=== PATIENT | male | born 1940 | race Caucasian/White ===

== ENCOUNTER → 2016-10-11 | Outpatient (CLI) | payer MEDICARE ==
--- NOTE | 2016-10-12 08:47 | XR ---
Cervical spine HISTORY: Neck pain, degenerative disc disease 5 views of the cervical spine Comparison to prior cervical spine 27 October 2013 Foraminal encroachment is present at C4-5, C5-6, C6-7 due to lateral extension of endplates. Cervica l vertebral bodies show preserved height. Bone mineralization is reduced. Multilevel facet arthropath y. There is multilevel spondylosis. Loss of disc height C3-4, C5-6 and C6-7. Minimal anterolisthesis grade 1 C4-5 and C6-7, C7-T1, retrolisthesis grade 1 C5-6. Odontoid view is limited. IMPRESSION: Degenerative disc disease, facet arthropathy, multilevel foraminal encroachment. Findings similar to prior exam.
== END | disposition home or self-care (01) ==
LOC: RADXRYALE 15:31
PROVIDERS: ATTEND Family Medicine
DX: M50.30 Other cervical disc degeneration, unspecified cervical region (principal); M46.86 Other specified inflammatory spondylopathies, lumbar region
CPT/HCPCS: 72050

== ENCOUNTER → 2016-10-23 | Outpatient (CLI) | payer MEDICARE ==
--- NOTE | 2016-10-23 13:29 | CT ---
EXAMINATION TYPE: CT cervical spine wo con DATE OF EXAM: 10/23/2016 1:07 PM COMPARISON: NONE HISTORY: Posterior neck pain for years CT DLP: 702 mGycm Automated exposure control for dose reduction was used. TECHNIQUE: CT scan of the cervical spine is obtained without contrast, axial images are obtained, sa gittal and coronal reformatted images are also reviewed. FINDINGS: C2-3: No significant disc space narrowing. No disc bulging or herniation. No central stenosis. Forami na are patent bilaterally. C3-4: Moderate degenerative disc space narrowing. Mild posterior disc bulge. No evidence for herniati on or central stenosis. C4-5: Moderate degenerative disc space narrowing. Mild posterior disc bulge. No herniation or centra l stenosis. Degenerative change of the cervical apophyseal joints resulting in mild left foraminal en croachment. C5-6: Moderate to severe degenerative disc space narrowing. Moderate posterior disc bulge with encaps ulating spur resulting in hard disc. Effacement of the ventral thecal sac and borderline central sten osis. Bilateral foraminal encroachment left greater than right. C6-7: Moderate to severe degenerative disc space narrowing. Moderate posterior disc bulge with encap sulating spur resulting in hard disc. Effacement of the ventral thecal sac and borderline central naya nosis. Bilateral foraminal encroachment left greater than right. C7-T1: No significant disc space narrowing. No disc bulging or herniation. No central stenosis. Yoanna norma are patent bilaterally. IMPRESSION: 1. Multilevel degenerative disc disease. 2. Borderline central stenosis at C5-6 and C6-7. See above.
== END | disposition home or self-care (01) ==
LOC: RADCTMAIN 12:42
PROVIDERS: ATTEND Family Medicine
DX: M50.30 Other cervical disc degeneration, unspecified cervical region (principal)
CPT/HCPCS: 72125

== ENCOUNTER → 2017-03-28 | Outpatient (CLI) | payer MEDICARE ==
--- NOTE | 2017-03-28 15:33 | CT ---
EXAMINATION TYPE: CT brain wo con DATE OF EXAM: 03/28/2017 COMPARISON: NONE HISTORY: Fall 2 weeks ago. Complains of dizziness and weakness CT DLP: [address] of the brain was performed. The ventricles, basal cisterns and sulci overlying the cerebral convexities demonstrate mild enlargem ent. There is no evidence for intracranial hemorrhage or sulcal effacement. There is decreased attenuation about the periventricular white matter and deep white matter of both c erebral hemispheres, compatible with chronic small vessel ischemia. Differential diagnosis does inclu de demyelination. No mass effects are seen.No midline shift. Osseous calvarium is intact. If symptoms persist consider MRI. IMPRESSION: 1. Age related atrophic and chronic small vessel ischemic change without acute intracranial process s een at this time.
== END | disposition home or self-care (01) ==
LOC: RADCTMAIN 15:13
PROVIDERS: ATTEND Family Medicine
DX: G31.1 Senile degeneration of brain, not elsewhere classified (principal); I67.82 Cerebral ischemia
CPT/HCPCS: 70450

== ENCOUNTER → 2018-01-02 | Outpatient (CLI) | payer MEDICARE ==
--- NOTE | 2018-01-02 16:23 | CT ---
EXAMINATION TYPE: CT abdomen pelvis wo con DATE OF EXAM: 01/02/2018 COMPARISON: 04/21/2016 INDICATION: Left sided flank pain. History of renal cancer. DLP: 429.2 mGycm, Automated exposure control for dose reduction was used. CONTRAST: 0 mL of Isovue 300. Study performed with Oral Contrast TECHNIQUE: Axial images were obtained from above the diaphragm to the pubic rami in the axial plane a t 5 mm thick sections. Reconstructed images are reviewed on the computer in the coronal plane. FINDINGS: Limited CT sections are obtained the lung bases. The lung bases are clear. CT ABDOMEN: Liver: Normal Spleen: Normal Pancreas: Normal Adrenal glands: Mild diffuse thickening of the left adrenal gland up to 1.5 cm cyst present. The righ t adrenal gland appears unremarkable. Gallbladder: Normal Kidneys: No masses are evident. No hydronephrosis is present. No cysts are present. Left kidney is been resected. Surgical clips are in the renal artery region. Aorta: Vascular calcification is within the aorta. Inferior vena cava: Normal. CT PELVIS: Loops of bowel within the abdomen and pelvis are normal. There are loops of bowel which are incom pletely distended or lack oral contrast limiting their evaluation. Few scattered diverticuli within t he sigmoid colon region. Appendix: Not identified. Urinary bladder: Normal. Genitourinary structures: Prostate is mild prominence. Osseous structures: No suspicious lytic or sclerotic lesions. Facet degenerative changes are present. COMPARISON: 04/21/2016. No significant interval changes evident. IMPRESSIONS: 1. No suspicious changes to suggest renal stones. No hydronephrosis or hydroureter or underlying shashi al masses are evident. The left kidney is surgically absent. 2. Mild fusiform prominence left adrenal gland.
== END | disposition home or self-care (01) ==
LOC: RADCTMAIN 12:37
PROVIDERS: ATTEND Surgery
DX: E27.8 Other specified disorders of adrenal gland (principal); Z91.013 Allergy to seafood; Z91.041 Radiographic dye allergy status; Z90.5 Acquired absence of kidney
CPT/HCPCS: 74176

== ENCOUNTER → 2019-08-15 | Outpatient (CLI) | payer MEDICARE ==
--- NOTE | 2019-08-15 11:46 | XR ---
EXAMINATION TYPE: XR chest 2V DATE OF EXAM: 08/15/2019 COMPARISON: 08/04/2014, 06/11/2015 TECHNIQUE: PA and lateral views submitted. HISTORY: Cough FINDINGS: The lungs are clear and there is no pneumothorax, pleural effusion, or focal pneumonia. Atheroscler otic change aorta. Hyperinflation noted. Surgical clips in the abdomen. No overt failure. Degenerativ e change of the spine. IMPRESSION: 1. No acute process. Correlate for COPD.
== END | disposition home or self-care (01) ==
LOC: RADXRYALE 11:04
PROVIDERS: ATTEND Family Medicine
DX: J44.9 Chronic obstructive pulmonary disease, unspecified (principal); R63.4 Abnormal weight loss
CPT/HCPCS: 71046

== ENCOUNTER → 2019-08-28 | Outpatient (CLI) | payer MEDICARE ==
[2019-08-28 14:48] LABS: African American GFR (CKD) >90 (>60 ml/min/1.73 sqM); Blood Urea Nitrogen 23 mg/dL (9-20); Non-African American GFR(CKD) 82 (>60 ml/min/1.73 sqM)
--- NOTE | 2019-08-29 12:05 | CT ---
EXAMINATION TYPE: CT abdomen w con DATE OF EXAM: 08/28/2019 COMPARISON: 01/02/2013 HISTORY: 79-year-old male Early satiety, abdominal pain. History of left kidney removed, hernia repai rs. TECHNIQUE: Contiguous axial scanning of the abdomen following administration of 100 ml Isovue 300 IV contrast. Delayed images through the kidneys and coronal/sagittal reconstructions performed. Patien t unable to raise arms and premedicated prior to the exam. CT DLP: 829 mGycm Automated exposure control for dose reduction was used. FINDINGS: Mild pectus excavatum. Heart normal size. Three-vessel coronary artery calcifications are present. No pericardial effusion. Lung bases clear without pleural effusion. Abnormal masslike circumferential thickening along the gastric fundus extending to the proximal body. Wall thickening measures up to 3.0 cm, new from 01/02/2018, refer to axial image 21. There is new intrahepatic and extra hepatic biliary ductal dilatation. Mild to moderate intrahepatic biliary ductal dilatation and the bile duct is dilated up to 1.7 cm. Abnormal 1.6 cm round filling defect within the upper bile duct and 1.2 cm round nodule within the di stal bile duct. Portal venous system is patent. Gallbladder is hydropic at 5.3 cm wide in keeping with biliary obstruction. Mild diffuse thickening left adrenal gland is unchanged from 01/02/2018. A few tiny cortical hypodensities within the right kidney too small for accurate CT characterization, likely tiny cortical cysts. Left kidney surgically absent. The left renal fossa is filled with bowel loops. Mildly enlarged mesenteric lymph nodes in the left side of the abdomen measure up to 1.1 cm, refer to axial image 35. However, this appears unchanged from 01/02/2018, refer to axial image 29 on that old exam. Moderate atherosclerotic calcification within the abdominal aorta and iliac arteries. 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 No dilated small bowel, free fluid, or free air. Moderate stool in the right side of the colon. There seems to be bulging laxity, possible intercostal herniation between the 10th and 11th lateral l eft ribs. Similar in retrospect to 01/02/2018. Pelvis is not imaged. Bones: Facet arthropathy lower lumbar spine. Moderate degenerative disc disease L-1-L2. Grade 1 anter olisthesis L4-L5. No osseous destructive process. IMPRESSION: 1. NEW ABNORMAL MASSLIKE CIRCUMFERENTIAL THICKENING UP TO 3 CM THICK INVOLVING THE GASTRIC FUNDUS AND PROXIMAL BODY. GASTRIC LYMPHOMA, ADENOCARCINOMA, AND SEVERE GASTRITIS ARE IN THE DIFFERENTIAL. APPRO PRIATE WORKUP AND MANAGEMENT RECOMMENDED. 2. NEW BILIARY OBSTRUCTION WITH THE BILE DUCT DILATED UP TO 1.7 CM IN MILD TO MODERATE INTRAHEPATIC DUCTAL DILATATION. THERE IS A 1.6 CM NODULE IN THE UPPER BILE DUCT AND 1.2 CM NODULE IN THE DISTAL BI LE DUCT. METASTATIC DISEASE AND STONES ARE IN THE DIFFERENTIAL. NOTE THAT ERCP MAY HAVE SOME TECHNICA L DIFFICULTY GIVEN THE GASTRIC THICKENING. 3. MILDLY ENLARGED LEFT ABDOMINAL MESENTERIC LYMPH NODES MEASURING UP TO 1.1 CM ARE STABLE BACK TO . THIS SUGGESTS A BENIGN ETIOLOGY. STATUS POST LEFT NEPHRECTOMY. 4. STABLE LEFT LATERAL INTERCOSTAL HERNIA BETWEEN THE 10TH AND 11TH RIBS. A [place] level critical message alert has been initiated for Dayday Vieyra DO via the [employer] Critical Results System on 08/29/2019 12:02 PM. This message alert has been sent to Dayday xie DO via the preferences provided by the clinician for the receipt of Radiology Critical Findings . Message ID [id number].
== END | disposition home or self-care (01) ==
LOC: RADCTMAIN 13:58
PROVIDERS: ATTEND Family Medicine
DX: K46.9 Unspecified abdominal hernia without obstruction or gangrene (principal); K83.1 Obstruction of bile duct; R93.5 Abnormal findings on diagnostic imaging of other abdominal regions, including retroperitoneum; R59.0 Localized enlarged lymph nodes; R68.81 Early satiety; R74.0 Nonspecific elevation of levels of transaminase and lactic acid dehydrogenase [LDH]; Z01.812 Encounter for preprocedural laboratory examination; Z90.5 Acquired absence of kidney
CPT/HCPCS: 82565; 84520; 74160; 36415; Q9967

== ENCOUNTER 2019-09-19 20:21 | Emergency (ER) | payer MEDICARE ==
[2019-09-19 20:36] VITALS: TEMP 98.6
[2019-09-19] MEDS ORDERED: SODIUM CHLORIDE 0.9% 1,000 ML IV STA (21:02)
--- NOTE | 2019-09-19 21:09 | ED ---
General Adult HPI - General Chief complaint: Chest Pain Stated complaint: chest pain Time Seen by Provider: 09/19/19 20:42 Source: patient, family Mode of arrival: wheelchair Limitations: no limitations - History of Present Illness Initial comments: Dictation was produced using [employer] dictation software. please excuse any grammatical, word or spelling errors. Chief Complaint: 79-year-old male past medical history of kidney disease, ch ronic back pain presents today with chest pain. History of Present Illness: She 79-year-old male. He presents today with chief complaint chest pain. He states that the pain as sharp located to the left anterior chest. Patient states is worse with deep inspiration. He also complains of shortness of breath. Patient is a daily smoker. He has no plans to quit tobacco use. Denies any radiation of symptoms to the shoulder and jaw. No diaphoresis. Denies any history of blood clots. No strokelike symptoms The ROS documented in this emergency department record has been reviewed and confirmed by me. Those systems with pertinent positive or negative responses have been documented in the HPI. All other systems are other negative and/or noncontributory. PHYSICAL EXAM: General Impression: Alert and oriented x3, not in acute distress HEENT: Normocephalic atraumatic, extra-ocular movements intact, pupils equal and reactive to light bilaterally, mucous membranes moist. Cardiovascular: Heart regular rate and rhythm, S1&S2 audible, no murmurs, rubs or gallops Chest: Lungs clear to auscultation bilaterally, no rhonchi, no wheeze, no rales Abdomen: Bowel sounds present, abdomen soft, non-tender, non-distended, no organomegaly Musculoskeletal: Pulses present and equal in all extremities, no peripheral edema Motor: no focal deficits noted Neurological: CN II-XII grossly intact, no focal motor or sensory deficits noted Skin: Intact with no visualized rashes Psych: Normal affect and mood ED course: 79-year-old female presents with atypical chest pain. Runs upon arrival are within acceptable limits. Laboratory evaluation obtained. Leukocytosis of 11.5. Coag panel is negative. D-dimer is 1.05. Metabolic panel is negative. Patient did have elevation of liver enzymes. Alk phos is 1000 417. This appears to be present since last month. Chest x-ray is unremarkable. CT angios the chest was obtained given elevated d-dimer and concerns of PE. CT angios unremarkable. Reevaluated patient after administration of IV analgesia and bladder gram patch. His symptoms are improved. He reports feeling much better. Discussed with patient that there is no signs of any life-threatening diseases occurring at this time. He is advised follow-up with primary care physician. Patient notified about his elevated liver enzymes. He is told to follow-up with primary care physician regarding this. EKG interpretation: Ventricular rate 83, sinus rhythm, ID interval 150, QS 80, QTc 425. No ID prolongation, no QTC prolongation, no ST or T-wave changes noted. Overall, this EKG is unremarkable - Related Data Home Medications Medication Instructions Recorded Confirmed Celecoxib [CeleBREX] 200 mg PO DAILY 08/01/14 07/24/16 Famotidine [Pepcid] 20 mg PO HS 08/01/14 07/26/16 oxyCODONE-APAP 10-325MG [Percocet 1 each PO Q6HR PRN 08/01/14 07/26/16 10-325 mg] Omeprazole [PriLOSEC] 20 mg PO AC-BRKFST 05/11/15 07/26/16 Previous Rx's Medication Instructions Recorded HYDROcodone/APAP 7.5-325MG [[place] 1 each PO Q4H PRN #60 tab 07/26/16 7.5] Allergies Allergy/AdvReac Type Severity Reaction Status Date / Time Latex, Natural Rubber Allergy Unknown Red skin Verified 09/19/19 20:24 Penicillins Allergy Unknown Rash/Hives Verified 09/19/19 20:24 adhesive Allergy blisters,tears Verified 09/19/19 20:24 skin Cephalosporins Allergy Rash/Hives Verified 09/19/19 20:24 erythromycin base Allergy Rash/Hives Verified 09/19/19 20:24 Sulfa (Sulfonamide Allergy Unknown Verified 09/19/19 20:24 Antibiotics) Iodinated Contrast Media AdvReac Anaphylaxis Verified 09/19/19 20:24 [Iodinated Contrast Media - IV Dye] tape Allergy blisters Uncoded 09/19/19 20:24 skin,peels skin,states "paper tape ok" Review of Systems ROS Statement: Those systems with pertinent positive or pertinent negative responses have been documented in the HPI. ROS Other: All systems not noted in ROS Statement are negative. 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 History of Any Multi-Drug Resistant Organisms: None Reported Past Surgical History: Bladder Surgery, Hernia Repair Additional Past Surgical History / Comment(s): lt kidney removed,abdominal hernias x 2 repair Past Anesthesia/Blood Transfusion Reactions: No Reported Reaction Past Psychological History: No Psychological Hx Reported Smoking Status: Current every day smoker Past Alcohol Use History: None Reported Past Drug Use History: None Reported - Past Family History Mother Family Medical History: No Reported History Additional Family Medical History / Comment(s): at age 93 Father Additional Family Medical History / Comment(s): Abdominal Aneurysm General Exam Limitations: no limitations Course Vital Signs 09/19/19 09/19/19 20:23 22:48 Temperature 98.6 F Pulse Rate 88 66 Respiratory 20 18 Rate Blood Pressure 126/76 119/65 O2 Sat by Pulse 97 98 Oximetry Medical Decision Making - Lab Data Result diagrams: 09/19/19 21:10 09/19/19 21:10 Lab Results 09/19/19 09/19/19 09/19/19 Range/Units 21:10 21:10 21:10 WBC 11.5 H (3.8-10.6) k/uL RBC 4.12 L (4.30-5.90) m/uL Hgb 13.2 (13.0-17.5) gm/dL Hct 41.2 (39.0-53.0) % MCV 99.9 (80.0-100.0) fL MCH 32.0 (25.0-35.0) pg MCHC 32.0 (31.0-37.0) g/dL RDW 13.6 (11.5-15.5) % Plt Count 244 (150-450) k/uL Neutrophils % 86 % Lymphocytes % 7 % Monocytes % 5 % Eosinophils % 1 % Basophils % 0 % Neutrophils # 9.9 H (1.3-7.7) k/uL Lymphocytes # 0.8 L (1.0-4.8) k/uL Monocytes # 0.6 (0-1.0) k/uL Eosinophils # 0.1 (0-0.7) k/uL Basophils # 0.1 (0-0.2) k/uL PT 9.3 (9.0-12.0) sec INR 0.9 (<1.2) APTT 26.4 (22.0-30.0) sec D-Dimer 1.05 H (<0.60) mg/L FEU Sodium 136 L (137-145) mmol/L Potassium 4.1 (3.5-5.1) mmol/L Chloride 101 (98-107) mmol/L Carbon Dioxide 32 H (22-30) mmol/L Anion Gap 3 mmol/L BUN 24 H (9-20) mg/dL Creatinine 0.82 (0.66-1.25) mg/dL Est GFR (CKD-EPI)AfAm >90 (>60 ml/min/1.73 sqM) Est GFR (CKD-EPI)NonAf 85 (>60 ml/min/1.73 sqM) Glucose 157 H (74-99) mg/dL Calcium 8.8 (8.4-10.2) mg/dL Magnesium 1.9 (1.6-2.3) mg/dL Total Bilirubin 2.5 H (0.2-1.3) mg/dL AST 70 H (17-59) U/L ALT 74 H (4-49) U/L Alkaline Phosphatase 1417 H (38-126) U/L Troponin I (0.000-0.034) ng/mL NT-Pro-B Natriuret Pep pg/mL Total Protein 6.7 (6.3-8.2) g/dL Albumin 3.3 L (3.5-5.0) g/dL Lipase 43 (23-300) U/L 09/19/19 09/19/19 Range/Units 21:10 21:10 WBC (3.8-10.6) k/uL RBC (4.30-5.90) m/uL Hgb (13.0-17.5) gm/dL Hct (39.0-53.0) % MCV (80.0-100.0) fL MCH (25.0-35.0) pg MCHC (31.0-37.0) g/dL RDW (11.5-15.5) % Plt Count (150-450) k/uL Neutrophils % % Lymphocytes % % Monocytes % % Eosinophils % % Basophils % % Neutrophils # (1.3-7.7) k/uL Lymphocytes # (1.0-4.8) k/uL Monocytes # (0-1.0) k/uL Eosinophils # (0-0.7) k/uL Basophils # (0-0.2) k/uL PT (9.0-12.0) sec INR (<1.2) APTT (22.0-30.0) sec D-Dimer (<0.60) mg/L FEU Sodium (137-145) mmol/L Potassium (3.5-5.1) mmol/L Chloride (98-107) mmol/L Carbon Dioxide (22-30) mmol/L Anion Gap mmol/L BUN (9-20) mg/dL Creatinine (0.66-1.25) mg/dL Est GFR (CKD-EPI)AfAm (>60 ml/min/1.73 sqM) Est GFR (CKD-EPI)NonAf (>60 ml/min/1.73 sqM) Glucose (74-99) mg/dL Calcium (8.4-10.2) mg/dL Magnesium (1.6-2.3) mg/dL Total Bilirubin (0.2-1.3) mg/dL AST (17-59) U/L ALT (4-49) U/L Alkaline Phosphatase (38-126) U/L Troponin I <0.012 (0.000-0.034) ng/mL NT-Pro-B Natriuret Pep 243 pg/mL Total Protein (6.3-8.2) g/dL Albumin (3.5-5.0) g/dL Lipase (23-300) U/L Disposition Clinical Impression: Chest wall muscle strain Disposition: HOME SELF-CARE Condition: Good Instructions (If sedation given, give patient instructions): Chest Pain (ED) Additional Instructions: Your alkaline phosphatase level was 1417. This is significantly elevated and should be monitored by her primary care physician. Is patient prescribed a controlled substance at d/c from ED?: No Referrals: Dayday Vieyra, [Primary Care Provider] - 1-2 days Time of Disposition: 00:28
[2019-09-19] MEDS ORDERED: oxyCODONE-APAP 10-325MG 1 EACH TAB PO PRN (21:16)
[2019-09-19 21:22] LABS: Basophils # (A) 0.1 k/uL (0-0.2); Basophils % (A) 0 %; Eosinophils # (A) 0.1 k/uL (0-0.7); Eosinophils % (A) 1 %; HCT 41.2 % (39.0-53.0); HGB 13.2 gm/dL (13.0-17.5); Lymphocytes # (A) 0.8 k/uL (1.0-4.8); Lymphocytes % (A) 7 %; MCV 99.9 fL (80.0-100.0); Mean Platelet Volume 11.4; Monocytes # (A) 0.6 k/uL (0-1.0); Monocytes % (A) 5 %; Neutrophils # (A) 9.9 k/uL (1.3-7.7); Neutrophils % (A) 86 %; Platelet Count 244 k/uL (150-450); RBC 4.12 m/uL (4.30-5.90); RDW 13.6 % (11.5-15.5); WBC 11.5 k/uL (3.8-10.6)
[2019-09-19 21:34] LABS: ALT 74 U/L (4-49); AST 70 U/L (17-59); African American GFR (CKD) >90 (>60 ml/min/1.73 sqM); Albumin 3.3 g/dL (3.5-5.0); Anion Gap 3 mmol/L; Blood Urea Nitrogen 24 mg/dL (9-20); Calcium 8.8 mg/dL (8.4-10.2); Carbon Dioxide 32 mmol/L (22-30); Chloride 101 mmol/L (98-107); Glucose 157 mg/dL (74-99); Magnesium 1.9 mg/dL (1.6-2.3); Non-African American GFR(CKD) 85 (>60 ml/min/1.73 sqM); Potassium 4.1 mmol/L (3.5-5.1); Sodium 136 mmol/L (137-145); Total Bilirubin 2.5 mg/dL (0.2-1.3); Total Protein 6.7 g/dL (6.3-8.2)
[2019-09-19 21:40] LABS: INR 0.9 (<1.2); Partial Thromboplastin Time 26.4 sec (22.0-30.0); Prothrombin Time 9.3 sec (9.0-12.0)
[2019-09-19 21:45] LABS: D-Dimer 1.05 mg/L FEU (<0.60)
[2019-09-19 21:48] LABS: Alkaline Phosphatase 1417 U/L (38-126)
--- NOTE | 2019-09-19 21:55 | XR ---
EXAMINATION TYPE: XR chest 2V DATE OF EXAM: 09/19/2019 COMPARISON: 08/15/2019 HISTORY: Chest pain TECHNIQUE: FINDINGS: There is no heart failure nor confluent pneumonic infiltrate. Thoracic aorta is atheromatou s. There are chest leads. Bony thorax is intact. IMPRESSION: No active cardiopulmonary disease. Normal heart. No change.
[2019-09-19] MEDS ORDERED: methylPREDNISolone SOD SUCCI 125 MG/2 ML VIAL IV STA (21:57)
[2019-09-19] MEDS ORDERED: FAMOTIDINE 20 MG/2 ML VIAL IV STA (21:57)
[2019-09-19] MEDS ORDERED: diphenhydrAMINE 50 MG/ML 1 ML VIAL IVP STA (21:57)
[2019-09-19] MEDS ORDERED: HYDROmorphone 0.5 MG/0.5 ML SYRINGE IVP STA (21:58)
[2019-09-19 22:49] VITALS: BP 119/65; PULSE 66; RESP 18
--- NOTE | 2019-09-19 22:52 | CT ---
EXAMINATION TYPE: CT angio chest DATE OF EXAM: 09/19/2019 COMPARISON: None HISTORY: chest pain CT DLP: 351.4 mGycm Automated exposure control for dose reduction was used. CONTRAST: Performed with IV Contrast, patient injected with 81cc mL of Isovue 370. Multiple axial sections were obtained from the thoracic inlet to the diaphragm with intravenous contr ast. There are 3-D post processed images The lungs are clear of consolidation. There is patchy scarring and atelectasis at the lung bases. The re is no pleural effusion. Heart is slightly enlarged. There is no pericardial effusion. Thoracic aor ta is atheromatous. There is no aortic dissection. Aorta measures up to 3.2 cm. There is no aneurysm. There are no hilar masses. There is no mediastinal adenopathy. There is normal contrast opacification of the pulmonary arteries. There are no filling defects. Thoracic vertebra have fairly normal spacing and alignment. There is no compression fracture. Bony pe lvis appears intact. IMPRESSION: No evidence of pulmonary embolism. Mild scarring and subsegmental atelectasis at the lung bases. Mild atherosclerotic vascular disease.
[2019-09-19] MEDS ORDERED: LIDOCAINE 5% PATCH TOPICAL STA (23:21)
== END 2019-09-20 00:55 | disposition home or self-care (01) ==
LOC: EC 20:21
DX: S29.011A Strain of muscle and tendon of front wall of thorax, initial encounter (principal); K21.9 Gastro-esophageal reflux disease without esophagitis; F17.200 Nicotine dependence, unspecified, uncomplicated; Z79.899 Other long term (current) drug therapy; Z91.040 Latex allergy status; Z91.048 Other nonmedicinal substance allergy status; Z88.0 Allergy status to penicillin; Z88.1 Allergy status to other antibiotic agents; Z88.2 Allergy status to sulfonamides; Z91.09 Other allergy status, other than to drugs and biological substances; Z85.528 Personal history of other malignant neoplasm of kidney; Z90.5 Acquired absence of kidney; X58.XXXA Exposure to other specified factors, initial encounter
CPT/HCPCS: 36415; 93005; 85379; 83880; 80053; 83690; 83735; 84484; 85025; 85610; 85730; 71046; 71275; 99285; 96374; 96375 ×3; 96361 ×4; J1200; J2930; J1170; Q9967

== ENCOUNTER 2019-10-01 09:09 | Day surgery (SDC) | payer MEDICARE ==
[2019-09-26 10:57] VITALS: BMI 20.3
[~2019-10-01 09:09] MED LIST: LACTATED RINGERS 1,000 ML IV SCH; LIDOCAINE 1% (10MG/ML) FOR IV START INTRADERMA PRN
[2019-10-01 10:44] VITALS: RESP 16; TEMP 97.4
[2019-10-01] MEDS ORDERED: LEVOFLOXACIN 500MG-D5W PMX 500 MG in DEXTROSE/WATER 1 100ML.BAG IVPB STA (10:55)
[2019-10-01] MEDS ORDERED: INDOMETHACIN 50MG SUPPOSITORY RECTAL ONE (10:55)
[2019-10-01 11:09] LABS: Basophils % (A) 0 %; Eosinophils # (A) 0.1 k/uL (0-0.7); Eosinophils % (A) 1 %; HCT 42.7 % (39.0-53.0); HGB 13.8 gm/dL (13.0-17.5); Lymphocytes % (A) 11 %; MCH 32.1 pg (25.0-35.0); MCHC 32.3 g/dL (31.0-37.0); MCV 99.3 fL (80.0-100.0); Mean Platelet Volume 10.1; Monocytes # (A) 0.4 k/uL (0-1.0); Monocytes % (A) 4 %; Neutrophils # (A) 7.3 k/uL (1.3-7.7); Neutrophils % (A) 82 %; Platelet Count 296 k/uL (150-450); RDW 13.5 % (11.5-15.5); WBC 8.8 k/uL (3.8-10.6)
[2019-10-01] MEDS ORDERED: FAMOTIDINE 20 MG/2 ML VIAL IV ONE (11:10)
[2019-10-01] MEDS ORDERED: HYDROCORTISONE SUCCINATE 100 MG/2 ML VIAL IV ONE (11:11)
[2019-10-01] MEDS ORDERED: diphenhydrAMINE 50 MG/ML 1 ML VIAL IVP ONE (11:12)
[2019-10-01 11:14] LABS: INR 0.9 (<1.2); Prothrombin Time 9.7 sec (9.0-12.0)
[2019-10-01 11:19] LABS: ALT 92 U/L (4-49); AST 100 U/L (17-59); African American GFR (CKD) >90 (>60 ml/min/1.73 sqM); Albumin 3.4 g/dL (3.5-5.0); Anion Gap 8 mmol/L; Blood Urea Nitrogen 20 mg/dL (9-20); Calcium 9.2 mg/dL (8.4-10.2); Carbon Dioxide 27 mmol/L (22-30); Chloride 103 mmol/L (98-107); Glucose 105 mg/dL (74-99); Non-African American GFR(CKD) 84 (>60 ml/min/1.73 sqM); Potassium 4.4 mmol/L (3.5-5.1); Sodium 138 mmol/L (137-145); Total Bilirubin 3.9 mg/dL (0.2-1.3); Total Protein 7.1 g/dL (6.3-8.2)
[2019-10-01] MEDS ORDERED: fentaNYL (PF) 50 MCG/ML 2 ML AMP IV ONE (11:35)
[2019-10-01 11:44] LABS: Alkaline Phosphatase 1800 U/L (38-126)
[2019-10-01] MEDS ORDERED: KETAMINE 10 MG/ML 20 ML VIAL ONE (12:16)
[2019-10-01] MEDS ORDERED: LIDOCAINE 1% INJ 10MG/ML (20 ML MDV) ONE (12:16)
[2019-10-01] MEDS ORDERED: PROPOFOL 10 MG/ML 20 ML VIAL IV ONE (12:16)
[2019-10-01] MEDS ORDERED: MIDAZOLAM 2 MG/2 ML VIAL ONE (12:16)
--- NOTE | 2019-10-01 12:50 | P.PCN ---
Date of Procedure: 10/01/19 Procedure(s) Performed: BRIEF HISTORY: Patient is a 79-year-old, pleasant, male, scheduled for an upper endoscopy as a part of evaluation of progressive weight loss of 30 pounds in the last 6 months duration associated with early satiety. Labs revealed elevated bilirubin of 3. 1800. Mild elevation of serum transaminases. CT of abdomen showed thickened folds in the fundus suspicious for neoplasm and dilated common bile duct with 2 small densities in the proximal and distal CBD suspicious for neoplasm versus stone and hence he scheduled for an upper endoscopy along with ERCP today. PROCEDURE PERFORMED: Esophagogastroduodenoscopy with biopsy. Attempted ERCP PREOPERATIVE DIAGNOSIS: Early satiety and progressive weight loss and abnormal LFTs/jaundice IV sedation per anesthesia. PROCEDURE: After informed consent was obtained, the patient was brought into the endoscopy unit. IV sedation was administered by Anesthesia under continuous monitoring. Initially the Olympus GIF-140 video endoscope was inserted into the mouth. Esophagus intubated without any difficulty. It was gradually advanced into the stomach and duodenum and carefully examined. In the bulb of the duodenum there was a 5 mm superficial ulceration identified. The second part of the duodenum appeared normal. The scope at this time was withdrawn to the stomach, adequately insufflated with air, and upon careful examination, mucosa of the antrum, body, cardia and the fundus appeared normal. There was slight thickening of the folds noted in the proximal body the stomach. There were no masses identified. Biopsies were done from the antrum. The scope was then withdrawn into the esophagus. The GE junction was located at 39 cm from the incisors. Small hiatal hernia noted. The esophagus appeared normal. There were no erosions or ulcerations seen and the patient tolerated the procedure well. At this time he continued to remain sedated. The ERCP scope was passed from the mouth and esophagus intubated without any difficulty and was gradually advanced into the stomach and to some difficulty into the duodenum. Despite multiple times I was not able to visualize ampullary orifice. There was a small duodenal diverticulum identified in the second part of the duodenum but the average orifice could not be seen. After multiple attempts at visualizing the ampullary orifice which was not successful the procedure was terminated. The patient tolerated the procedure well., IMPRESSION: 1. Upper endoscopy revealed slightly thickened folds in the proximal body the stomach but no masses identified . 2 5 mm duodenal bulbar ulcer. 3. Attempted ERCP but unable to visualize the ampullary orifice and hence the procedure was terminated RECOMMENDATIONS: The findings of this examination were discussed with the patient as well as his family. He was advised to follow with the biopsy results. At this time I will refer him to [facility] for ERCP as well as EUS of the pancreas to investigate this further.
[2019-10-01 13:18] VITALS: BP 129/80; PULSE 60
== END 2019-10-01 13:36 | disposition home or self-care (01) ==
LOC: ORWHC2ENDO 09:09
PROVIDERS: ATTEND Internal Medicine Gastroenterology
DX: K26.9 Duodenal ulcer, unspecified as acute or chronic, without hemorrhage or perforation (principal); K57.10 Diverticulosis of small intestine without perforation or abscess without bleeding; K29.50 Unspecified chronic gastritis without bleeding; K44.9 Diaphragmatic hernia without obstruction or gangrene; J44.9 Chronic obstructive pulmonary disease, unspecified; F17.210 Nicotine dependence, cigarettes, uncomplicated; Z90.5 Acquired absence of kidney; Z85.528 Personal history of other malignant neoplasm of kidney; K21.9 Gastro-esophageal reflux disease without esophagitis; Z88.1 Allergy status to other antibiotic agents; Z79.1 Long term (current) use of non-steroidal anti-inflammatories (NSAID); Z79.82 Long term (current) use of aspirin; Z79.891 Long term (current) use of opiate analgesic; Z79.899 Other long term (current) drug therapy; Z88.0 Allergy status to penicillin; Z88.2 Allergy status to sulfonamides; Z91.041 Radiographic dye allergy status; Z91.040 Latex allergy status; Z91.09 Other allergy status, other than to drugs and biological substances
CPT/HCPCS: 88305; 80053; 85025; 85610; 43239; J2250; J1200; J1720; J1956; J2001; J3010; J2704

== ENCOUNTER 2019-10-13 04:21 | Inpatient (IN) | payer MEDICARE ==
[2019-10-13] MEDS ORDERED: ACETAMINOPHEN TAB 325 MG TAB PO STA (04:30)
[2019-10-13] MEDS ORDERED: IBUPROFEN 600 MG TAB PO STA (04:30)
[2019-10-13] MEDS ORDERED: MEROPENEM 1 GM in SODIUM CHLORIDE 0.9% 100 ML IVPB STA (04:53)
[2019-10-13] MEDS ORDERED: metroNIDAZOLE-NS PMX 500 MG in SALINE 1 100ML.BAG IVPB STA (04:57)
[2019-10-13 05:03] LABS: Basophils % (A) 0 %; Eosinophils # (A) 0.1 k/uL (0-0.7); Eosinophils % (A) 1 %; HCT 40.7 % (39.0-53.0); HGB 13.2 gm/dL (13.0-17.5); Lymphocytes # (A) 0.4 k/uL (1.0-4.8); Lymphocytes % (A) 2 %; MCH 32.1 pg (25.0-35.0); MCHC 32.6 g/dL (31.0-37.0); MCV 98.5 fL (80.0-100.0); Mean Platelet Volume 10.2; Monocytes # (A) 0.4 k/uL (0-1.0); Monocytes % (A) 3 %; Neutrophils # (A) 14.4 k/uL (1.3-7.7); Neutrophils % (A) 94 %; Platelet Count 284 k/uL (150-450); RBC 4.13 m/uL (4.30-5.90); RDW 13.3 % (11.5-15.5); WBC 15.4 k/uL (3.8-10.6)
[2019-10-13] MEDS: SODIUM CHLORIDE 0.9% 500 ML 500 ML IV SCH ×3 (05:11→06:17)
[2019-10-13 05:13] LABS: ALT 104 U/L (4-49); AST 155 U/L (17-59); African American GFR (CKD) >90 (>60 ml/min/1.73 sqM); Albumin 3.2 g/dL (3.5-5.0); Anion Gap 8 mmol/L; Blood Urea Nitrogen 25 mg/dL (9-20); Calcium 8.7 mg/dL (8.4-10.2); Carbon Dioxide 28 mmol/L (22-30); Chloride 100 mmol/L (98-107); Glucose 114 mg/dL (74-99); INR 0.9 (<1.2); Non-African American GFR(CKD) 83 (>60 ml/min/1.73 sqM); Partial Thromboplastin Time 25.6 sec (22.0-30.0); Potassium 4.3 mmol/L (3.5-5.1); Prothrombin Time 9.8 sec (9.0-12.0); Sodium 136 mmol/L (137-145); Total Bilirubin 3.7 mg/dL (0.2-1.3); Total Protein 6.6 g/dL (6.3-8.2)
[2019-10-13 05:24] LABS: Alkaline Phosphatase 1737 U/L (38-126)
--- NOTE | 2019-10-13 05:35 | ED ---
Fever HPI - General Chief Complaint: Fever Stated Complaint: post-op/fever Time Seen by Provider: 10/13/19 04:25 Source: patient Mode of arrival: ambulatory Limitations: no limitations - History of Present Illness Initial Comments: Javon is a 79-year-old gentleman who presents the ER today for evaluation of fever. Patient has been experiencing abdominal pain, early satiety and weight loss, he underwent a endoscopy and attempted ERCP at our hospital on October 01 however ERCP was unsuccessful. Patient was then referred to [facility] where he underwent an ERCP on September 06. Patient reports that he had a stent placed at that time. Patient was subsequently discharged home and had been doing well however over the past day has had some worsening abdominal pain, his son woke during night to check on him and noted that he was very warm to the touch and had Jeffery's. At that time he decided to bring him to the hospital for evaluation of possible infection. - Related Data Home Medications Medication Instructions Recorded Confirmed Celecoxib [CeleBREX] 200 mg PO DAILY 08/01/14 10/01/19 oxyCODONE-APAP 10-325MG [Percocet 1 each PO Q4HR PRN 08/01/14 10/01/19 10-325 mg] Albuterol Inhaler [Ventolin Hfa 1 - 2 puff INHALATION RT-Q6H PRN 09/26/19 10/01/19 Inhaler] Aspirin [Adult Low Dose Aspirin EC] 81 mg PO DAILY 09/26/19 10/01/19 Allergies Allergy/AdvReac Type Severity Reaction Status Date / Time Latex, Natural Rubber Allergy Unknown Red skin Verified 10/13/19 04:28 Penicillins Allergy Unknown Rash/Hives Verified 10/13/19 04:28 adhesive Allergy blisters,tears Verified 10/13/19 04:28 skin Cephalosporins Allergy Rash/Hives Verified 10/13/19 04:28 erythromycin base Allergy Rash/Hives Verified 10/13/19 04:28 Sulfa (Sulfonamide Allergy Unknown Verified 10/13/19 04:28 Antibiotics) Iodinated Contrast Media AdvReac Anaphylaxis Verified 10/13/19 04:28 [Iodinated Contrast Media - IV Dye] tape Allergy blisters Uncoded 10/13/19 04:28 skin,peels skin,states "paper tape ok" Review of Systems ROS Statement: Those systems with pertinent positive or pertinent negative responses have been documented in the HPI. ROS Other: All systems not noted in ROS Statement are negative. Past Medical History Past Medical History: Cancer, COPD, Eye Disorder, GERD/Reflux Additional Past Medical History / Comment(s): mami inguinal hernias,states "has bulging area to kidney incision and able to feel gas go through" states ribs removed with kidney surgery .,aneurysm rt hip area-(Dr munoz ),chronic back pain, pneumonia (2010), Cancer left kidney & kidney removed 1989., varicose veins,chronic sinus problems,has 20% vision lt eye., states only able to eat sma ll amts and feels full, losing wt., pt was seen in ER 09/19/19 for chest pain. History of Any Multi-Drug Resistant Organisms: None Reported Past Surgical History: Bladder Surgery, Hernia Repair Additional Past Surgical History / Comment(s): lt kidney removed, surgery with Dr. Underwood-unsure what was done. abdominal hernias x 2 repair Past Anesthesia/Blood Transfusion Reactions: No Reported Reaction Past Psychological History: No Psychological Hx Reported Smoking Status: Current every day smoker Past Alcohol Use History: None Reported Past Drug Use History: None Reported - Past Family History Mother Family Medical History: No Reported History Additional Family Medical History / Comment(s): at age 93 Father Additional Family Medical History / Comment(s): Abdominal Aneurysm General Exam - General Exam Comments Initial Comments: Physical Exam GENERAL: Chronically ill-appearing elderly gentleman Temporal wasting HENT: Normocephalic, Atraumatic. EYES: PERRL, EOMI Scleral icterus PULMONARY: Unlabored respirations. No audible rales rhonchi or wheezing was noted. CARDIOVASCULAR: Tachycardic, regular ABDOMEN: Tenderness to palpation RUQ SKIN: Pale : Deferred NEUROLOGIC: Patient is alert and oriented x3. Moving all extremities spontaneously MUSCULOSKELETAL: Normal extremities with adequate strength and full range of motion. No lower extremity swelling or edema. No calf tenderness. PSYCHIATRIC: Normal psychiatric evaluation. Limitations: no limitations Course Vital Signs 10/13/19 10/13/19 10/13/19 04:25 04:36 05:00 Temperature 101.8 F H 102.1 F H Pulse Rate 120 H 78 Respiratory 24 18 Rate Blood Pressure 107/62 103/62 O2 Sat by Pulse 95 98 Oximetry 10/13/19 10/13/19 10/13/19 06:00 06:20 06:59 Temperature 98.7 F Pulse Rate 62 64 63 Respiratory 17 18 16 Rate Blood Pressure 95/63 95/54 95/53 O2 Sat by Pulse 99 99 97 Oximetry Medical Decision Making - Medical Decision Making Patient was seen and evaluated upon arrival Sepsis workup initiated, concern for ascending cholangitis considering the patient had a recent ERCP and is now septic Has reveal leukocytosis, normal kidney function, elevated transaminases bilirubin and alk phos seem to be at baseline CT abdomen and pelvis without contrast due to patient's history of anaphylaxis was ordered CT scan reveals no acute abdominal pathology however right lower lobe pneumonia is identified Patient tachycardia and fever resolved patient resting comfortably now Patient care was discussed with Dr. Bailon who agrees with plan for admission here with consults to pulmonology due to pneumonia and gastroenterology. - Lab Data Result diagrams: 10/13/19 04:45 10/13/19 04:45 Lab Results 10/13/19 10/13/19 10/13/19 Range/Units 04:45 04:45 04:45 WBC 15.4 H (3.8-10.6) k/uL RBC 4.13 L (4.30-5.90) m/uL Hgb 13.2 (13.0-17.5) gm/dL Hct 40.7 (39.0-53.0) % MCV 98.5 (80.0-100.0) fL MCH 32.1 (25.0-35.0) pg MCHC 32.6 (31.0-37.0) g/dL RDW 13.3 (11.5-15.5) % Plt Count 284 (150-450) k/uL Neutrophils % 94 % Lymphocytes % 2 % Monocytes % 3 % Eosinophils % 1 % Basophils % 0 % Neutrophils # 14.4 H (1.3-7.7) k/uL Lymphocytes # 0.4 L (1.0-4.8) k/uL Monocytes # 0.4 (0-1.0) k/uL Eosinophils # 0.1 (0-0.7) k/uL Basophils # 0.0 (0-0.2) k/uL PT 9.8 (9.0-12.0) sec INR 0.9 (<1.2) APTT 25.6 (22.0-30.0) sec Sodium 136 L (137-145) mmol/L Potassium 4.3 (3.5-5.1) mmol/L Chloride 100 (98-107) mmol/L Carbon Dioxide 28 (22-30) mmol/L Anion Gap 8 mmol/L BUN 25 H (9-20) mg/dL Creatinine 0.87 (0.66-1.25) mg/dL Est GFR (CKD-EPI)AfAm >90 (>60 ml/min/1.73 sqM) Est GFR (CKD-EPI)NonAf 83 (>60 ml/min/1.73 sqM) Glucose 114 H (74-99) mg/dL Plasma Lactic Acid Ravinder (0.7-2.0) mmol/L Calcium 8.7 (8.4-10.2) mg/dL Total Bilirubin 3.7 H (0.2-1.3) mg/dL AST 155 H (17-59) U/L ALT 104 H (4-49) U/L Alkaline Phosphatase 1737 H (38-126) U/L Total Protein 6.6 (6.3-8.2) g/dL Albumin 3.2 L (3.5-5.0) g/dL 10/13/19 Range/Units 04:45 WBC (3.8-10.6) k/uL RBC (4.30-5.90) m/uL Hgb (13.0-17.5) gm/dL Hct (39.0-53.0) % MCV (80.0-100.0) fL MCH (25.0-35.0) pg MCHC (31.0-37.0) g/dL RDW (11.5-15.5) % Plt Count (150-450) k/uL Neutrophils % % Lymphocytes % % Monocytes % % Eosinophils % % Basophils % % Neutrophils # (1.3-7.7) k/uL Lymphocytes # (1.0-4.8) k/uL Monocytes # (0-1.0) k/uL Eosinophils # (0-0.7) k/uL Basophils # (0-0.2) k/uL PT (9.0-12.0) sec INR (<1.2) APTT (22.0-30.0) sec Sodium (137-145) mmol/L Potassium (3.5-5.1) mmol/L Chloride (98-107) mmol/L Carbon Dioxide (22-30) mmol/L Anion Gap mmol/L BUN (9-20) mg/dL Creatinine (0.66-1.25) mg/dL Est GFR (CKD-EPI)AfAm (>60 ml/min/1.73 sqM) Est GFR (CKD-EPI)NonAf (>60 ml/min/1.73 sqM) Glucose (74-99) mg/dL Plasma Lactic Acid Ravinder 1.3 (0.7-2.0) mmol/L Calcium (8.4-10.2) mg/dL Total Bilirubin (0.2-1.3) mg/dL AST (17-59) U/L ALT (4-49) U/L Alkaline Phosphatase (38-126) U/L Total Protein (6.3-8.2) g/dL Albumin (3.5-5.0) g/dL - EKG Data -: EKG Interpreted by Me EKG Comments: EKG was obtained due to tachycardia upon arrival, EKG obtained at 4:59 AM, rate is 81 rhythm sinus normal axis normal intervals, no acute ST elevations or depressions or evidence of acute ischemia or infarction. Disposition Clinical Impression: Pneumonia, Sepsis Disposition: ADMITTED IP TO THIS HOSP Condition: Serious Is patient prescribed a controlled substance at d/c from ED?: No Referrals: Dayday Vieyra DO [Primary Care Provider] - 1-2 days
--- NOTE | 2019-10-13 06:18 | CT ---
EXAMINATION TYPE: CT abdomen pelvis wo con DATE OF EXAM: 10/13/2019 COMPARISON: 08/28/2019 HISTORY: Post op fever CT DLP: 365.9 mGycm Automated exposure control for dose reduction was used. Multiple axial sections were obtained from the diaphragm to the floor the pelvis without contrast. FINDINGS: There is some mild infiltrate and atelectasis right posterior lung base. There is no pleural effusion . Heart size is normal. There is no pericardial effusion. There is air in the anterior biliary tree. There is biliary stent noted. Gallbladder is distended. Gallbladder is dilated and measures 5.1 cm in diameter. Spleen is intact. There is no pancreatic mass. The stomach appears intact. There is no adrenal mass. There is clips apparently from left nephrectomy. Right kidney shows normal size. There is no hydronephrosis. Ureter is not dilated. There is no evidence of retroperitoneal liliana opathy. Abdominal aorta is atheromatous. There is no inguinal hernia. There is no free fluid in the p liliana. Bladder is almost empty. There is no evidence of ascites. Abdominal aorta is atheromatous. The re is moderate atheromatous change in the iliac and femoral arteries. There is no evidence of pneumop eritoneum. I see no sign of intestinal obstruction. There are spondylotic mild changes in the lumbar spine. There is no compression fracture. Bony pelvis appears intact. IMPRESSION: There is right lower lobe pneumonia and atelectasis that appears new compared to old exam. There is a ir in the biliary tree with new biliary stent compared to last exam. Dilated gallbladder suggestive o f cholecystitis unchanged compared to old exam. dilation of the biliary tree not significantly differ ent than last exam.
[2019-10-13] MEDS ORDERED: PNEUMONIA PROTOCOL UTILIZED 1 EACH MISC PO PRN (07:09)
[2019-10-13] MEDS: oxyCODONE-APAP 10-325MG 1 EACH TAB PO PRN ×3 (09:23→22:57)
[2019-10-13] MEDS ORDERED: oxyCODONE-APAP 10-325MG 1 EACH TAB PO PRN (12:55)
[2019-10-13] MEDS ORDERED: IPRATROPIUM-ALBUTEROL 3 ML NEB INHALATION PRN (13:08)
--- NOTE | 2019-10-13 13:08 | XR ---
EXAMINATION TYPE: XR chest 1V portable DATE OF EXAM: 10/13/2019 COMPARISON: 09/19/2019 HISTORY: Cough, pneumonia TECHNIQUE: Single frontal view of the chest is obtained. FINDINGS: There is no pneumothorax. The cardiac silhouette size is within normal limits. The osseo us structures are intact. Tiny granuloma right upper lobe measuring 1 mm stable. Atherosclerotic orellana ge aorta. Arthropathy shoulders. Diffuse osteopenia. No overt failure. Hyperinflation suggests COPD. There is subsegmental consolidation along the medial aspect of the right lower lobe. IMPRESSION: 1. Along the medial aspect of the right lower lobe there subsegmental atelectasis or early infiltrate . Correlate clinically.
[2019-10-13] MEDS ORDERED: ALBUTEROL NEBULIZED 2.5 MG/3 ML INHALATION SCH (14:00)
[2019-10-13] MEDS: NICOTINE 14MG/24HR PATCH TRANSDERM SCH (16:17)
[2019-10-13] MEDS: SODIUM CHLORIDE 0.9% 1,000 ML IV SCH (16:17)
[2019-10-13] MEDS: PANTOPRAZOLE 40 MG/10 ML VIAL IVP SCH ×2 (16:18→21:41)
--- NOTE | 2019-10-13 16:22 | HP ---
HISTORY AND PHYSICAL DATE OF SERVICE: 09/14/2019 CHIEF COMPLAINTS: Fever and weakness. HISTORY OF PRESENT ILLNESS: This 79-year-old gentleman with a past medical history of multiple medical problems, including COPD, history of chest pain, GERD, DJD, history of vascular disorder, renal cell cancer and surgery, being followed by Dr. Vieyra in the outpatient setting, was complaining of weight loss. The patient was evaluated and Dr. Gauthier performed an EGD. An ERCP was also attempted. CT scan showed some thickened fundus, suspicion for neoplasm. The stomach biopsies/specimens showed minimal chronic gastritis and the patient was referred to [facility], where ERCP was done which showed multiple stones, but stents were placed without any evidence of any extraction. Please refer to [facility] report for further information. The extrinsic compression which was suspected was not visualized apparently in the new endoscopies done at [facility]. In any case, the patient went home and the patient was not feeling well. The patient had fever, diminished appetite, some abdominal discomfort. The patient came to [facility] and was suspected to have right lower lobe pneumonia. Patient was admitted for further evaluation and treatment. The patient also had elevated LFTs and elevated bilirubin. Cholangitis also was suspected. There is no history of any headache, loss of consciousness, seizures. No chest pain, hematochezia, melena at this time. PAST MEDICAL HISTORY: History of COPD, GERD, DJD, history of previous pneumonia, history of bladder surgery, history of hernia repair. HOME MEDICATIONS: 1. Percocet 10 mg q.i.d. p.r.n. 2. Celebrex 200 mg p.o. daily. 3. Aspirin 81 mg p.o. daily. 4. Ventolin 1-2 puffs q.6 p.r.n. ALLERGIES: LATEX, PENICILLIN, ADHESIVES, CEPHALOSPORIN, ERYTHROMYCIN, SULFA, IODINATED CONTRAST DYES, TAPE. FAMILY HISTORY: No history of any heart disease or strokes in the family. SOCIAL HISTORY: History of smoking, continued ongoing. No history of alcohol intake. REVIEW OF SYSTEM: ENT: Diminished hearing. Diminished vision. CARDIOVASCULAR SYSTEM: No angina, palpitations. RESPIRATORY SYSTEM: As mentioned earlier. GI: As mentioned earlier. : No dysuria or retention. NERVOUS SYSTEM: No numbness, weakness. ALLERGY/IMMUNOLOGY: No asthma, hayfever. MUSCULOSKELETAL: As mentioned earlier. HEMATOLOGY/ONCOLOGY: No history of anemia. ENDOCRINE: No history of diabetes, hypothyroidism. CONSTITUTIONAL: As mentioned earlier. DERMATOLOGY: Negative. RHEUMATOLOGY: Negative. PSYCHIATRY: As mentioned earlier. PHYSICAL EXAMINATION: Patient alert and oriented x3. Pulse 54, blood pressure 90/53, respiration 18, temperature 98.1, pulse ox 97% on room air. HEENT: Conjunctivae normal. NECK: No jugular venous distention. CARDIOVASCULAR SYSTEM: S1, S2 muffled. RESPIRATORY SYSTEM: Breath sounds diminished at the bases. A few scattered rhonchi and crackles. ABDOMEN: Soft. Mild diffuse discomfort. No guarding. No rigidity. No mass palpable. Bowel sounds present. No ascites. No mass palpable. LEGS: No edema. No swelling. NERVOUS SYSTEM: Higher functions as mentioned earlier. Moves all 4 limbs. No focal motor or sensory deficit. LYMPHATICS: No lymph node palpable in neck, axillae or groin. SKIN: No ulcer, rash, bleeding. JOINTS: No active deforming arthropathy. LABS: Labs at this time show WBC 15.4, hemoglobin 13.2. Sodium 136. Total bilirubin is 3.7. AST is 155, ALT is 104, and alkaline phosphatase is 1737. ASSESSMENT: 1. Fever; possible acute cholangitis with sepsis. 2. Rule out right lower lobe pneumonia. 3. Obstructive jaundice with elevated bilirubin, AST, ALT and alkaline phosphatase. 4. History of recent ERCP and stent placement for choledocholithiasis. 5. Hyponatremia. 6. Increased white count. 7. Chronic obstructive pulmonary disease. 8. Continued ongoing nicotine dependence. 9. History of gastroesophageal reflux disease. 10.Degenerative joint disease. 11.History of pneumonia. 12.History of renal cancer with surgery in 1989 on the left. 13.Right iliac artery aneurysm; monitored outpatient. 14.History of bladder surgery. 15.Moderate to severe protein-calorie malnutrition with body mass index of 19.8. 16.History of recent weight loss. 17.FULL CODE. RECOMMENDATIONS AND DISCUSSION: In this 79-year-old gentleman who presented with multiple complex medical issues, we will monitor the patient closely, continue the current medications, continue with symptomatic treatment. I recommend broad-spectrum IV antibiotics empirically. Follow the cultures. Also obtain infectious disease and gastroenterology evaluations. Repeat labs. The prognosis is guarded because of multiple complex medical issues. Further recommendations to follow. A copy of this dictation is being forwarded to Dr. Vieyra, who is the primary physician. [facility] records were reviewed. I would also recommend that the patient follow up with [facility] for further evaluation and treatment as well. The patient and family understand and agree. Old charts were reviewed. CT scan was reviewed personally. MMODL / MISBAHN: [id number] / MTDQuinn
[2019-10-13] MEDS: MEROPENEM 2 GM in SODIUM CHLORIDE 0.9% 100 ML IVPB SCH ×2 (16:25→23:01)
[2019-10-13] MEDS: HEPARIN SODIUM,PORCINE 5,000 UNIT/ML 1 ML VIAL SQ SCH ×2 (16:29→21:40)
[2019-10-13 16:45] LABS: % Iron Saturation 7.33 (15.00-50.00)
[2019-10-13 16:47] LABS: Glucose,Whole Blood 113 mg/dL (75-99)
[2019-10-13] MEDS: FORMOTEROL FUMARATE 20 MCG/2 ML NEBU INHALATION SCH (19:58)
[2019-10-13] MEDS: BUDESONIDE 1 MG/2 ML NEBU INHALATION SCH (19:58)
[2019-10-13] MEDS: IPRATROPIUM-ALBUTEROL 3 ML NEB INHALATION SCH (19:58)
[2019-10-13 20:57] LABS: Glucose,Whole Blood 123 mg/dL (75-99)
--- NOTE | 2019-10-13 22:39 | CONS ---
CONSULTATION PULMONARY/CRITICAL CARE CONSULTATION: DATE OF SERVICE: 10/13/2019 REASON FOR CONSULTATION: Fever. This is a 79-year-old gentleman who presented to the ER with complaints of elevated temperature. The patient was also experiencing some shortness of breath, cough, chest congestion, as well as apparently abdominal pain and weight loss. He apparently had an endoscopy done at the hospital on October 01 with attempted ERCP. The ERCP was unsuccessful. The patient was referred to [facility], where he underwent ERCP on . At that time apparently the patient had a stent placed. He was subsequently discharged home and was doing well until a couple of days prior to admission. His complaints included abdominal pain. He was weak and fatigued. He was not eating very much. He also felt warm to the touch and was having some chest congestion, cough and shortness of breath. He was apparently told that he might have an infection, and for that reason he needed to come to the hospital. He apparently was told in the emergency room that he might have "pneumonia." His primary care physician is Dr. Vieyra. He also sees Dr. Gauthier, the director underwriter sales. The patient is a long-term smoker. He continues to smoke cigarettes and has been smoking for many many years. He does not see a telesales advisor. HOME MEDICATIONS: Home medications include Celebrex, Percocet, albuterol inhaler and aspirin, low- dose. ALLERGIES: INCLUDE LATEX, PENICILLIN, ADHESIVES, CEPHALOSPORINS, ERYTHROMYCIN, SULFA ANTIBIOTICS, IVP DYE AND TAPE. MEDICAL HISTORY: Medical history includes COPD, GERD, bilateral inguinal hernias, chronic back pain, pneumonia, status post hypernephroma with left nephrectomy in 1989, varicose veins, chronic sinus disease and some eye issues. SURGICAL HISTORY: Surgical history includes left nephrectomy for hypernephroma, bladder surgery and hernia repair. SOCIAL HISTORY: Positive for current everyday tobacco use. There is no alcohol use or illicit drug use. FAMILY HISTORY: Positive for mother who at age 93 and was healthy. Father apparently had a history of abdominal aneurysm. REVIEW OF SYSTEMS: CONSTITUTIONAL: Fever. NEUROLOGIC: Negative. HEENT: Negative. CARDIOVASCULAR: Negative. PULMONARY: Shortness of breath, chest congestion and cough. GI: Abdominal pain. Poor appetite. : Negative. RHEUMATOLOGIC: Negative. IMMUNOLOGIC: Negative. ENDOCRINOLOGIC: Negative. DERMATOLOGIC: Negative. PHYSICAL EXAMINATION: VITAL SIGNS: Current vital signs are reviewed. Temperature is 98.1, heart rate 64, respiratory rate 18, blood pressure 90/53, mean 65, room-air saturation 97%. GENERAL APPEARANCE: He appears in no acute distress. HEENT: HEENT examination is grossly unremarkable. Mucous membranes are moist. No oral lesions. He is not wearing any supplemental oxygen. NECK: Supple. Full range of motion. No adenopathy, thyromegaly or neck vein distention. CARDIOVASCULAR: Cardiovascular examination reveals regular rhythm and rate. Heart rate about 61 beats per minute. S1, S2 normal. No S3, S4 or murmur. LUNGS: Lungs reveal coarse inspiratory and expiratory rhonchi. No wheezes or crackles. Breath sounds are equal. ABDOMEN: Soft. Bowel sounds are heard. EXTREMITIES: Intact. No cyanosis, clubbing or edema. SKIN: Without rash. NEUROLOGIC: Neurologic examination is brief but nonfocal. IMAGING: The patient had a chest x-ray today. The chest x-ray shows some atelectasis in the right medial lower lobe. This may reflect early infiltrate as well. CT of the abdomen and pelvis was done on the day of admission. It shows some possible right lower lobe pneumonia and the presence of air in the biliary tree with new biliary stent. The gallbladder is dilated. LABS: Reviewed. White count 15.4, hemoglobin 13.2, hematocrit 40.7, platelet count 284,000. PT, INR, PTT all normal. Sodium 136, potassium 4.3, chloride 100, CO2 28. Anion gap is 8. BUN and creatinine were 25 and 0.87. Bilirubin 3.7, AST 155, ALT 104, alkaline phosphatase 1737. Albumin 3.2. Microbiology is pending or negative. CURRENT MEDICATIONS: Reviewed. He is currently on aspirin, heparin subcutaneously, Dilaudid, updrafts with albuterol and Atrovent, meropenem, nicotine patch, oxycodone, Protonix and 0.9 at 75 mL/hour. Previous CT earlier this year showed a masslike lesion involving the gastric fundus and proximal body. 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 There was also new biliary obstruction. ASSESSMENT: 1. Right lower lobe pneumonia, possibly hospital-acquired. 2. Probable underlying chronic obstructive pulmonary disease from chronic tobacco use and ongoing nicotine addiction. 3. Recent biliary stent placed at [facility] for biliary obstruction. 4. Multiple other medical problems and comorbidities. PLAN: Please see my orders. The patient will have some additional breathing medications given to him. We should try to obtain a sputum sample if possible. Nicotine patch would also be beneficial. Overall prognosis is guarded. This is because of the previous CT scan of the belly showing a gastric mass. Will continue to follow. REBEKAH / MISBAHN: [id number] / MTDQuinn
--- NOTE | 2019-10-13 23:08 | P.CONS ---
History of Present Illness - Reason for Consult Consult date: 10/13/19 sepsis Requesting physician: Ha Corona - Chief Complaint Fever x 1 day - History of Present Illness Patient is a 79-year-old male who was recently admitted to the hospital patient noticed to have CBD obstruction for which ERCP was attempted but was not successful subsequently patient was transferred to [facility] with the patient had ERCP and stent placement on October 07, 2019 patient states subsequently he was discharged home not on antibiotic therapy patient was doing okay until last night after supper he noticed to have fever with rigors and chills and was unable to keep himself warm patient mention he did have episode of vomiting when been complaining of pain in the upper abdominal area to be more of a dull aching pain intensity 5-6 out of 10 and no radiation patient denies significant chest pain still has no shortness of breath and minimal cough no diarrhea with the symptom had the patient had did present to the hospital on arrival to the ER patient did have a temperature of 101.81 height patient was a tachycardic with a heart rate of 120 white count elevated 15,000 influenza serology was negative creatinine was 0.87 liver enzymes are elevated patient did have a CT of abdominal pelvis completed which did shows possible right lower lobe pneumonia is in the biliary tree with new biliary stent that is the gallbladder suggestive of cholecystitis patient has been admitted to the hospital he was started on meropenem 2 g every 8 hours infectious disease was consulted for further recommendation about antibiotic therapy. Review of Systems Positive point has been mentioned in HPI rest of the systems are negative Past Medical History Past Medical History: Cancer, Chest Pain / Angina, COPD, Eye Disorder, GERD/Reflux, Osteoarthritis (OA), Pneumonia, Vascular Disorder Additional Past Medical History / Comment(s): 09/22/19 EGD with unsuccessful ERCP, 10/07/19 [facility] ERCP with CBD stent-awaiting pathology report, recent early saety/wt loss, 1989 L renal cancer with surgery/has bulge at incisional area, 2006 benign bladder tumor per pt, R iliac artery aneurysm being monitored, arthritis/pain in back/neck and has bilateral leg pain at times, 20% vision in L eye, varicose veins, chronic sinus problems. Pt has fragile skin-all tape ca uses skin tears. History of Any Multi-Drug Resistant Organisms: None Reported Past Surgical History: Bladder Surgery, Hernia Repair Additional Past Surgical History / Comment(s): 1989 L nephroureterectomy for cancer/couple ribs removed, 2006 TURP/resection bladder tumors, ventral hernia repair, bilateral inguinal hernia repairs, EGDs, colonoscopies, michael rectal abscesses with I&Ds, ERCP 10/07/19 at [facility] with CBD stent placed-awaiting path report. Past Anesthesia/Blood Transfusion Reactions: No Reported Reaction Smoking Status: Current every day smoker - Past Family History Mother Family Medical History: No Reported History Additional Family Medical History / Comment(s): at age 93 Father Family Medical History: Vascular Disorder Additional Family Medical History / Comment(s): Father in his 60s from a ruptured abdominal aneurysm Medications and Allergies Home Medications Medication Instructions Recorded Confirmed Type Celecoxib [CeleBREX] 200 mg PO DAILY 08/01/14 10/13/19 History oxyCODONE-APAP 10-325MG [Percocet 1 tab PO QID PRN 08/01/14 10/13/19 History 10-325 mg] Albuterol Inhaler [Ventolin Hfa 1 - 2 puff INHALATION RT-Q6H PRN 09/26/19 10/13/19 History Inhaler] Aspirin [Adult Low Dose Aspirin EC] 81 mg PO DAILY 09/26/19 10/13/19 History Allergies Allergy/AdvReac Type Severity Reaction Status Date / Time Latex, Natural Rubber Allergy Unknown Red skin Verified 10/13/19 07:59 Penicillins Allergy Unknown Rash/Hives Verified 10/13/19 07:59 adhesive Allergy blisters,tears Verified 10/13/19 07:59 skin Cephalosporins Allergy Rash/Hives Verified 10/13/19 07:59 erythromycin base Allergy Rash/Hives Verified 10/13/19 07:59 Sulfa (Sulfonamide Allergy Unknown Verified 10/13/19 07:59 Antibiotics) Iodinated Contrast Media AdvReac Anaphylaxis Verified 10/13/19 07:59 [Iodinated Contrast Media - IV Dye] tape Allergy Mild blisters Uncoded 10/13/19 07:59 skin,peels skin,states "paper tape ok" Physical Exam Vitals: Vital Signs Temp Pulse Pulse Resp BP BP Pulse Ox 10/13/19 12:00 98.1 F 54 L 18 90/53 97 10/13/19 11:00 98.0 F 54 L 18 98/53 97 10/13/19 09:57 98.2 F 57 L 18 96/59 96 10/13/19 08:00 97.5 F L 10/13/19 07:56 61 18 94/56 93 L 10/13/19 06:59 63 16 95/53 97 10/13/19 06:20 98.7 F 64 18 95/54 99 10/13/19 06:00 62 17 95/63 99 10/13/19 05:00 78 18 103/62 98 10/13/19 04:36 102.1 F H 10/13/19 04:25 101.8 F H 120 H 24 107/62 95 Intake and Output 10/13/19 10/13/19 10/13/19 06:59 14:59 22:59 Output Total 300 Balance -300 Output: Urine 300 Other: # Bowel Movements 0 Weight 58.967 kg 58.967 kg 58.967 kg GENERAL DESCRIPTION: Elderly male lying in bed, no distress. No tachypnea or accessory muscle of respiration use. HEENT: Shows Pallor , no scleral icterus. Oral mucous membrane is dry. NECK: Trachea central, no thyromegaly. LUNGS: Unlabored breathing. Decreased breath sounds at bases. No wheeze or etcher aircraft ckle. HEART: S1, S2, regular rate and rhythm. ABDOMEN: Soft, upper quadrant tenderness , guarding or rigidity EXTREMITIES: No edema of feet. SKIN: No rash, no masses palpable. NEUROLOGICAL: The patient is awake, alert, oriented x3, mood and affect normal. Results CBC & Chem 7: 10/13/19 04:45 10/13/19 04:45 Labs: Abnormal Lab Results - Last 24 Hours (Table) 10/13/19 10/13/19 10/13/19 Range/Units 04:45 04:45 04:45 WBC 15.4 H (3.8-10.6) k/uL RBC 4.13 L (4.30-5.90) m/uL Neutrophils # 14.4 H (1.3-7.7) k/uL Lymphocytes # 0.4 L (1.0-4.8) k/uL ESR (0-15) mm/hr Sodium 136 L (137-145) mmol/L BUN 25 H (9-20) mg/dL Glucose 114 H (74-99) mg/dL POC Glucose (mg/dL) (75-99) mg/dL Iron 17 L (65-175) ug/dL % Saturation 7.33 L (15.00-50.00) Total Bilirubin 3.7 H (0.2-1.3) mg/dL AST 155 H (17-59) U/L ALT 104 H (4-49) U/L Alkaline Phosphatase 1737 H (38-126) U/L C-Reactive Protein (<10.0) mg/L Albumin 3.2 L (3.5-5.0) g/dL 10/13/19 10/13/19 10/13/19 Range/Units 04:45 13:41 16:46 WBC (3.8-10.6) k/uL RBC (4.30-5.90) m/uL Neutrophils # (1.3-7.7) k/uL Lymphocytes # (1.0-4.8) k/uL ESR 76 H (0-15) mm/hr Sodium (137-145) mmol/L BUN (9-20) mg/dL Glucose (74-99) mg/dL POC Glucose (mg/dL) 113 H (75-99) mg/dL Iron (65-175) ug/dL % Saturation (15.00-50.00) Total Bilirubin (0.2-1.3) mg/dL AST (17-59) U/L ALT (4-49) U/L Alkaline Phosphatase (38-126) U/L C-Reactive Protein 89.6 H (<10.0) mg/L Albumin (3.5-5.0) g/dL Assessment and Plan Assessment: 1-patient presented hospital with sepsis in this patient did have fever tachycardia elevated white count source is likely abdominal possible ascending cholangitis in this patient who recently did have ERCP and stent placement with a history of cholecystitis, patient CT has been suspicious for right lower lobe pneumonia however the patient abdominal symptoms are more marked in the pulmo nary symptom underlying component of possible aspiration pneumonitis not entirely excluded likely will need to cover for the enteric gram-negative pathogen especially drug-resistant in view of the recent hospitalization 2-patient with a penicillin allergy that would limit the number of antibiotics s afe to use (1) Cholangitis Current Visit: Yes Status: Acute Code(s): K83.09 - OTHER CHOLANGITIS SNOMED Code(s): 30925581 (2) Pneumonia Current Visit: Yes Status: Acute Code(s): J18.9 - PNEUMONIA, UNSPECIFIED ORGANISM SNOMED Code(s): 971820606 (3) Sepsis Current Visit: Yes Status: Acute Code(s): A41.9 - SEPSIS, UNSPECIFIED ORGANISM SNOMED Code(s): 89007367 Plan: 1-we will try to obtain a sputum for Gram stain and culture 2-adjust the dose of meropenem to 1 g every 8 hour 3-IV fluids We will follow on clinical condition and cultures to further adjust medication if needed Thank you for this consultation we will follow the patient along with you Time with Patient: Greater than 30
[2019-10-13 23:20] LABS: Hepatitis A Antibody IgM Non-Reactive (Non-Reactive); Hepatitis B Core IgM Non-Reactive (Non-Reactive); Hepatitis B Surface Antigen Non-Reactive (Non-Reactive); Hepatitis C IgG Antibody Non-Reactive (Non-Reactive)
[2019-10-13 23:57] LABS: Alpha Fetoprotein, Tumor Mkr <2.5 ng/mL (0.0-7.9)
[2019-10-14] MEDS: SODIUM CHLORIDE 0.9% 1,000 ML IV SCH ×2 (06:04→20:30)
[2019-10-14 06:14] LABS: Glucose,Whole Blood 101 mg/dL (75-99)
[2019-10-14 07:01] LABS: Basophils % (A) 0 %; Eosinophils # (A) 0.1 k/uL (0-0.7); Eosinophils % (A) 2 %; HCT 38.3 % (39.0-53.0); Lymphocytes # (A) 1.1 k/uL (1.0-4.8); Lymphocytes % (A) 16 %; MCH 31.4 pg (25.0-35.0); MCHC 31.3 g/dL (31.0-37.0); MCV 100.6 fL (80.0-100.0); Mean Platelet Volume 10.6; Monocytes # (A) 0.4 k/uL (0-1.0); Monocytes % (A) 5 %; Neutrophils # (A) 5.3 k/uL (1.3-7.7); Neutrophils % (A) 76 %; Platelet Count 202 k/uL (150-450); RBC 3.81 m/uL (4.30-5.90); RDW 13.5 % (11.5-15.5)
[2019-10-14 07:19] LABS: ALT 65 U/L (4-49); AST 67 U/L (17-59); African American GFR (CKD) >90 (>60 ml/min/1.73 sqM); Albumin 2.4 g/dL (3.5-5.0); Alkaline Phosphatase 1169 U/L (38-126); Anion Gap 4 mmol/L; Blood Urea Nitrogen 20 mg/dL (9-20); Calcium 8.4 mg/dL (8.4-10.2); Carbon Dioxide 27 mmol/L (22-30); Chloride 106 mmol/L (98-107); Glucose 100 mg/dL (74-99); Non-African American GFR(CKD) 83 (>60 ml/min/1.73 sqM); Potassium 4.3 mmol/L (3.5-5.1); Sodium 137 mmol/L (137-145); Total Bilirubin 1.9 mg/dL (0.2-1.3); Total Protein 5.5 g/dL (6.3-8.2)
--- NOTE | 2019-10-14 07:35 | P.CONS ---
History of Present Illness - Reason for Consult Consult date: 10/13/19 Elevated bilirubin Requesting physician: Gary E Sheet - Chief Complaint Fevers, chills - History of Present Illness 79-year-old male with multiple medical comorbidities including osteoarthritis, COPD, previous history of renal cancer and recent treatment for choledocholi thiasis and biliary obstruction at [facility] who presented to the hospital due to fever with rigors and chills. The patient recently underwent EGD, EUS and ERCP at [facility] after a failed attempt at ERCP at [facility] due to tortuosity and the patient's underlying anatomy. At that time ERCP was significant for biliary obstruction with 2 CBD stones noted and the patient underwent stenting at that time. FNA was deferred during EUS both to sampling was taken and patient is awaiting results of biopsies for which she is plan to follow-up at [facility]. Current presentation the patient had fevers and chills prior to presentation and was found to have a poss ible pneumonia on computed tomography scan. Laboratory evaluation significant for WBC 15.4, hemoglobin 13.2, platelet count 284,000 with a total bilirubin 3.7, alkaline phosphatase 1737. Computed tomography scan of the abdomen significant for a dilated gallbladder, pneumobilia with a stent seen in the common bile duct since last imaging as well as a dilated biliary tree which is stable and a right lower lobe pneumonia with atelectasis. Review of Systems REVIEW OF SYSTEMS: CONSTITUTIONAL: Patient is reporting fevers, chills and fatigue. CARDIOVASCULAR: Denies any chest pain, palpitations high or low blood pressures RESPIRATORY: Denies any shortness of breath, hemoptysis or cough. GENITOURINARY: No dysuria or hematuria. MUSCULOSKELETAL: No weakness reported. SKIN: Denies any new rashes or lesions, jaundice or pallor. PSYCHIATRIC: Denies any depression or anxiety. NEUROLOGY: Denies headache, denies any new focal deficits. EARS/NOSE/THROAT: No recent hearing change, congestion, nasal discharge or sore throat. EYES: No pain in eyes, discharge or change in vision. GASTROINTESTINAL: As per HPI. Past Medical History Past Medical History: Cancer, Chest Pain / Angina, COPD, Eye Disorder, GERD/Reflux, Osteoarthritis (OA), Pneumonia, Vascular Disorder Additional Past Medical History / Comment(s): 09/22/19 EGD with unsuccessful ERCP, 10/07/19 [facility] ERCP with CBD stent-awaiting pathology report, recent early saety/wt loss, 1989 L renal cancer with surgery/has bulge at incisional area, 2006 benign bladder tumor per pt, R iliac artery aneurysm being monitored, arthritis/pain in back/neck and has bilateral leg pain at times, 20% vision in L eye, varicose veins, chronic sinus problems. Pt has fragile skin-all tape causes skin tears. History of Any Multi-Drug Resistant Organisms: None Reported Past Surgical History: Bladder Surgery, Hernia Repair Additional Past Surgical History / Comment(s): 1989 L nephroureterectomy for cancer/couple ribs removed, 2006 TURP/resection bladder tumors, ventral hernia repair, bilateral inguinal hernia repairs, EGDs, colonoscopies, michael rectal abscesses with I&Ds, ERCP 10/07/19 at [facility] with CBD stent placed-awaiting path report. Past Anesthesia/Blood Transfusion Reactions: No Reported Reaction Smoking Status: Current every day smoker - Past Family History Mother Family Medical History: No Reported History Additional Family Medical History / Comment(s): at age 93 Father Family Medical History: Vascular Disorder Additional Family Medical History / Comment(s): Father in his 60s from a ruptured abdominal aneurysm Medications and Allergies Home Medications Medication Instructions Recorded Confirmed Type Celecoxib [CeleBREX] 200 mg PO DAILY 08/01/14 10/13/19 History oxyCODONE-APAP 10-325MG [Percocet 1 tab PO QID PRN 08/01/14 10/13/19 History 10-325 mg] Albuterol Inhaler [Ventolin Hfa 1 - 2 puff INHALATION RT-Q6H PRN 09/26/19 10/13/19 History Inhaler] Aspirin [Adult Low Dose Aspirin EC] 81 mg PO DAILY 09/26/19 10/13/19 History Allergies Allergy/AdvReac Type Severity Reaction Status Date / Time Latex, Natural Rubber Allergy Unknown Red skin Verified 10/13/19 07:59 Penicillins Allergy Unknown Rash/Hives Verified 10/13/19 07:59 adhesive Allergy blisters,tears Verified 10/13/19 07:59 skin Cephalosporins Allergy Rash/Hives Verified 10/13/19 07:59 erythromycin base Allergy Rash/Hives Verified 10/13/19 07:59 Sulfa (Sulfonamide Allergy Unknown Verified 10/13/19 07:59 Antibiotics) Iodinated Contrast Media AdvReac Anaphylaxis Verified 10/13/19 07:59 [Iodinated Contrast Media - IV Dye] tape Allergy Mild blisters Uncoded 10/13/19 07:59 skin,peels skin,states "paper tape ok" Physical Exam Vitals: Vital Signs Temp Pulse Pulse Resp BP BP Pulse Ox 10/13/19 12:00 98.1 F 54 L 18 90/53 97 10/13/19 11:00 98.0 F 54 L 18 98/53 97 10/13/19 09:57 98.2 F 57 L 18 96/59 96 10/13/19 08:00 97.5 F L 10/13/19 07:56 61 18 94/56 93 L 10/13/19 06:59 63 16 95/53 97 10/13/19 06:20 98.7 F 64 18 95/54 99 10/13/19 06:00 62 17 95/63 99 10/13/19 05:00 78 18 103/62 98 10/13/19 04:36 102.1 F H 10/13/19 04:25 101.8 F H 120 H 24 107/62 95 Intake and Output 10/13/19 10/13/19 10/13/19 06:59 14:59 22:59 Other: Weight 58.967 kg 58.967 kg On physical examination, patient appears comfortable in no apparent distress. HEAD: Normocephalic, atraumatic. EYES: No scleral icterus. No conjunctival injection. MOUTH: No lesions, tongue midline. NECK: Trachea midline, no gross abnormalities. CHEST: Clear to auscultation with no wheezing or rhonchi appreciated. HEART: Regular rate and rhythm. ABDOMEN: Soft, thin and mildly tender to palpation. Bowel sounds are positive. No organomegaly. No guarding or rigidity. EXTREMITIES: No pedal edema. SKIN: No rashes, no jaundice. NEUROLOGIC: Alert and oriented x3. No focal deficits. Results CBC & Chem 7: 10/14/19 06:26 10/13/19 04:45 Labs: Abnormal Lab Results - Last 24 Hours (Table) 10/13/19 10/13/19 10/13/19 Range/Units 04:45 04:45 13:41 WBC 15.4 H (3.8-10.6) k/uL RBC 4.13 L (4.30-5.90) m/uL Neutrophils # 14.4 H (1.3-7.7) k/uL Lymphocytes # 0.4 L (1.0-4.8) k/uL Sodium 136 L (137-145) mmol/L BUN 25 H (9-20) mg/dL Glucose 114 H (74-99) mg/dL Total Bilirubin 3.7 H (0.2-1.3) mg/dL AST 155 H (17-59) U/L ALT 104 H (4-49) U/L Alkaline Phosphatase 1737 H (38-126) U/L C-Reactive Protein 89.6 H (<10.0) mg/L Albumin 3.2 L (3.5-5.0) g/dL CT scan - abdomen: report reviewed (Computed tomography scan of the abdomen significant for a dilated gallbladder, pneumobilia with a stent seen in the common bile duct since last imaging as well as a dilated biliary tree which is stable and a right lower lobe pneumonia with atelectasis.) Assessment and Plan (1) Choledocholithiasis Narrative/Plan: Pleasant 79-year-old male who presents due to concerns over fevers, chills and is currently being treated for a right lower lobe pneumonia. Patient's liver enzymes were elevated on presentation and stable from prior examination with total bilirubin 3.7, alkaline phosphatase 1737, AST 155 and ALT 114 with patient having leukocytosis at 50.4. The patient recently underwent EGD, EUS and ERCP at [facility] with biopsies taken as well as placement of a biliary stent. He is scheduled for follow-up at [facility]. Imaging at that time was consistent with 2 large biliary stones. The case has been reviewed with the advanced endoscopy service at [facility] in the presence of pneumobilia on computed tomography scan as the technique/tense placed make obstruction less likely at this time. We will continue to monitor her symptomatically, vitals and labs with further recommendations to follow. Current Visit: Yes Status: Acute Code(s): K80.50 - CALCULUS OF BILE DUCT W/O CHOLANGITIS OR CHOLECYST W/O OBST SNOMED Code(s): 791823708 (2) Elevated liver enzymes Current Visit: Yes Status: Acute Code(s): R74.8 - ABNORMAL LEVELS OF OTHER SERUM ENZYMES SNOMED Code(s): 825117179 (3) Pneumonia Current Visit: Yes Status: Acute Code(s): J18.9 - PNEUMONIA, UNSPECIFIED ORGANISM SNOMED Code(s): 868209820 (4) Sepsis Current Visit: Yes Status: Acute Code(s): A41.9 - SEPSIS, UNSPECIFIED ORGANISM SNOMED Code(s): 08930278 Plan: Supportive care Okay for diet Continue monitor CBC, CMP Continue to monitor her symptomatically Continue broad-spectrum antibiotic therapy Case has been discussed with evidence endoscopy at [facility], okay to continue with broad-spectrum antibiotic therapy and supportive care No plans for endoscopic evaluation at this time Patient will follow up with [facility] as previously scheduled Thank you for allowing us to participate in the care of this patient we will continue to follow
--- NOTE | 2019-10-14 07:59 | XR ---
EXAMINATION TYPE: XR chest 2V DATE OF EXAM: 10/14/2019 COMPARISON: 10/13/2019 TECHNIQUE: PA and lateral views submitted. HISTORY: Follow-up pneumonia. FINDINGS: Diffuse hyperinflation. There is improving subsegmental consolidation along the medial aspect of the right lung base. Blunting the costophrenic angles likely secondary to hyperexpansion. Atherosclerotic change aorta. No pneumothorax. No overt failure. Degenerative change of the spine. IMPRESSION: 1. COPD with improving right lower lobe infiltrate.
[2019-10-14] MEDS: FORMOTEROL FUMARATE 20 MCG/2 ML NEBU INHALATION SCH ×2 (08:29→19:50)
[2019-10-14] MEDS: IPRATROPIUM-ALBUTEROL 3 ML NEB INHALATION SCH ×3 (08:29→19:50)
[2019-10-14] MEDS: BUDESONIDE 1 MG/2 ML NEBU INHALATION SCH ×2 (08:29→19:49)
[2019-10-14] MEDS: PANTOPRAZOLE 40 MG/10 ML VIAL IVP SCH ×2 (08:38→20:36)
[2019-10-14] MEDS: NICOTINE 14MG/24HR PATCH TRANSDERM SCH (08:38)
[2019-10-14] MEDS: ASPIRIN 81 MG PO SCH (08:38)
[2019-10-14] MEDS: MEROPENEM 1 GM in SODIUM CHLORIDE 0.9% 100 ML IVPB SCH ×3 (08:42→22:48)
[2019-10-14] MEDS: HEPARIN SODIUM,PORCINE 5,000 UNIT/ML 1 ML VIAL SQ SCH ×2 (08:42→20:36)
[2019-10-14] MEDS: oxyCODONE-APAP 10-325MG 1 EACH TAB PO PRN ×3 (09:21→22:48)
[2019-10-14 11:34] LABS: Glucose,Whole Blood 115 mg/dL (75-99)
[2019-10-14 12:36] LABS: Ceruloplasmin 43.3 mg/dL (20.0-60.0)
[2019-10-14 12:43] LABS: Liver/Kidney Microsome Antibod 1.3 UNITS (<=20)
--- NOTE | 2019-10-14 14:05 | P.PN ---
Subjective Progress Note Date: 10/14/19 Principal diagnosis: Right lower lobe pneumonia 10/14/2019 patient seen in follow-up on selective care unit, he is resting comfortably in bed, in no acute distress, room air pulse ox is 97%, hemodynamically stable, breathing is nonlabored, no tachypnea, some chest pain, patient has been afebrile in over 24 hours, continues on meropenem. Today's labs have been reviewed, with blood cell count is 7.0, hemoglobin is 12, electrolytes and renal profile within normal limits, his liver enzymes are trending down, no nausea or vomiting, no abdominal pain Objective - Vital Signs Vital signs: Vital Signs Temp 97 F L 10/14/19 04:00 Pulse 60 10/14/19 12:00 Resp 20 10/14/19 12:00 BP 112/58 10/14/19 12:00 Pulse Ox 97 10/14/19 12:00 Intake & Output 10/13/19 10/14/19 10/14/19 18:59 06:59 18:59 Intake Total 340 Output Total 500 850 Balance -500 -850 340 Weight 58.967 kg 60.9 kg Intake: Intake, IV Titration 100 Amount Meropenem 1 gm In Sodium 100 Chloride 0.9% 100 ml @ 200 mls/hr IVPB Q8H [facility] Rx#:[id number] Oral 240 Output: Urine 500 850 Other: Voiding Method Urinal Urinal # Bowel Movements 0 0 - Exam GENERAL EXAM: Alert, very pleasant, 79-year-old white male, on room air, with a pulse ox of 97% comfortable in no apparent distress. HEAD: Normocephalic/atraumatic. EYES: Normal reaction of pupils, equal size. Conjunctiva pink, sclera white. NOSE: Clear with pink turbinates. THROAT: No erythema or exudates. NECK: No masses, no JVD, no thyroid enlargement, no adenopathy. CHEST: No chest wall deformity. Symmetrical expansion. LUNGS: Equal air entry with no crackles, wheeze, rhonchi or dullness. CVS: Regular rate and rhythm, normal S1 and S2, no gallops, no murmurs, no rubs ABDOMEN: Soft, nontender. No hepatosplenomegaly, normal bowel sounds, no guarding or rigidity. EXTREMITIES: No clubbing, no edema, no cyanosis, 2+ pulses and upper and lower extremities. MUSCULOSKELETAL: Muscle strength and tone normal. SPINE: No scoliosis or deformity SKIN: No rashes CENTRAL NERVOUS SYSTEM: Alert and oriented -3. No focal deficits, tone is normal in all 4 extremities. PSYCHIATRIC: Alert and oriented -3. Appropriate affect. Intact judgment and insight. - Labs CBC & Chem 7: 10/14/19 06:26 10/14/19 06:26 Labs: Abnormal Lab Results - Last 24 Hours (Table) 10/13/19 10/13/19 10/13/19 Range/Units 04:45 04:45 13:41 RBC (4.30-5.90) m/uL Hgb (13.0-17.5) gm/dL Hct (39.0-53.0) % MCV (80.0-100.0) fL ESR 76 H (0-15) mm/hr Glucose (74-99) mg/dL POC Glucose (mg/dL) (75-99) mg/dL Iron 17 L (65-175) ug/dL % Saturation 7.33 L (15.00-50.00) Total Bilirubin (0.2-1.3) mg/dL AST (17-59) U/L ALT (4-49) U/L Alkaline Phosphatase (38-126) U/L C-Reactive Protein (<10.0) mg/L Total Protein (6.3-8.2) g/dL Albumin (3.5-5.0) g/dL CA 19-9 Antigen 152.0 H (0.0-34.9) U/mL 10/13/19 10/13/19 10/13/19 Range/Units 13:41 16:46 20:56 RBC (4.30-5.90) m/uL Hgb (13.0-17.5) gm/dL Hct (39.0-53.0) % MCV (80.0-100.0) fL ESR (0-15) mm/hr Glucose (74-99) mg/dL POC Glucose (mg/dL) 113 H 123 H (75-99) mg/dL Iron (65-175) ug/dL % Saturation (15.00-50.00) Total Bilirubin (0.2-1.3) mg/dL AST (17-59) U/L ALT (4-49) U/L Alkaline Phosphatase (38-126) U/L C-Reactive Protein 89.6 H (<10.0) mg/L Total Protein (6.3-8.2) g/dL Albumin (3.5-5.0) g/dL CA 19-9 Antigen (0.0-34.9) U/mL 10/14/19 10/14/19 10/14/19 Range/Units 06:13 06:26 06:26 RBC 3.81 L (4.30-5.90) m/uL Hgb 12.0 L (13.0-17.5) gm/dL Hct 38.3 L (39.0-53.0) % MCV 100.6 H (80.0-100.0) fL ESR (0-15) mm/hr Glucose 100 H (74-99) mg/dL POC Glucose (mg/dL) 101 H (75-99) mg/dL Iron (65-175) ug/dL % Saturation (15.00-50.00) Total Bilirubin 1.9 H (0.2-1.3) mg/dL AST 67 H (17-59) U/L ALT 65 H (4-49) U/L Alkaline Phosphatase 1169 H (38-126) U/L C-Reactive Protein (<10.0) mg/L Total Protein 5.5 L (6.3-8.2) g/dL Albumin 2.4 L (3.5-5.0) g/dL CA 19-9 Antigen (0.0-34.9) U/mL 10/14/19 Range/Units 11:32 RBC (4.30-5.90) m/uL Hgb (13.0-17.5) gm/dL Hct (39.0-53.0) % MCV (80.0-100.0) fL ESR (0-15) mm/hr Glucose (74-99) mg/dL POC Glucose (mg/dL) 115 H (75-99) mg/dL Iron (65-175) ug/dL % Saturation (15.00-50.00) Total Bilirubin (0.2-1.3) mg/dL AST (17-59) U/L ALT (4-49) U/L Alkaline Phosphatase (38-126) U/L C-Reactive Protein (<10.0) mg/L Total Protein (6.3-8.2) g/dL Albumin (3.5-5.0) g/dL CA 19-9 Antigen (0.0-34.9) U/mL Microbiology - Last 24 Hours (Table) 10/13/19 04:45 Blood Culture - Preliminary Blood No Growth after 24 hours Assessment and Plan Plan: Assessment: #1. Acute right lower lobe pneumonia, possibly hospital-acquired #2. Probable underlying chronic obstructive pulmonary disease and chronic tobacco use and ongoing nicotine addiction #3. Recent biliary stent placement and [facility] for biliary obstruction #4. Multiple other medical problems and comorbidities Plan: Has been reviewed by Dr. Don, showing COPD with improving right lower lobe infiltrate, clinically patient remains stable, he is on room air, his been afebrile and over 24 hours, no acute complaints, increase activity as tolerated, from pulmonary perspective he could be considered for discharge home today on oral course of antibiotics, he will need outpatient follow-up Dr. Don in the office in 7-10 days I performed a history & physical examination of the patient and discussed their management with my nurse practitioner, Freda Clayton. I reviewed the nurse practitioner's note and agree with the documented findings and plan of care. Lung sounds are positive for diminished breath sounds. The findings and the impression was discussed with the patient. I attest to the documentation by the nurse practitioner. Time with Patient: Less than 30
--- NOTE | 2019-10-14 16:24 | PN ---
PROGRESS NOTE DATE OF SERVICE: 10/14/2019 This 79-year-old gentleman who was admitted with fever and weakness also had recent obstructive jaundice. Pancreatic stent placement was done in [facility]. Stones were also visualized during that time. The most recent chest x-ray showed significant improvement, which was personally reviewed by me, with right lower lobe infiltrate improving at this time; however, the patient still has obstructive jaundice. Bilirubin is elevated at 1.9, slightly better. Alkaline phosphatase is also improving. Influenza is negative. The patient also had a CA-99 of 152. Past medical history reviewed. . REVIEW OF SYSTEMS: CARDIOVASCULAR SYSTEM: No angina, palpitations. RESPIRATORY SYSTEM: As mentioned earlier. GI: As mentioned earlier. : No dysuria or retention. NERVOUS SYSTEM: No numbness, weakness. CURRENT MEDICATIONS: Reviewed. They include: 1. DuoNeb q.i.d. and p.r.n. 2. Aspirin 81 mg daily. 3. Pulmicort 1 mg b.i.d. 4. Perforomist 20 mcg b.i.d. 5. Heparin 5000 units subcutaneously b.i.d. 6. Dilaudid p.r.n. 7. Meropenem 1 gram IV q.8. 8. Habitrol 14 daily. 9. Percocet. 10.Protonix 40 mg IV b.i.d. PHYSICAL EXAMINATION: Patient is alert, oriented x3. Pulse 60, blood pressure 112/50, respiration 20, temperature normal, pulse ox 97% on room air. HEENT: Conjunctivae normal. NECK: No jugular venous distention. CARDIOVASCULAR SYSTEM: S1, S2 muffled. RESPIRATORY SYSTEM: Breath sounds diminished at the bases. A few scattered rhonchi and crackles. ABDOMEN: Soft, non-tender. No mass palpable. LEGS: No edema. No swelling. NERVOUS SYSTEM: No focal deficit. LABS: WBC 7, hemoglobin is 12. Sodium 137, potassium 4.3. Other labs are noted. ASSESSMENT: 1. Fever; possible acute cholangitis or sepsis. 2. Possible acute right lower lobe pneumonia, possibly Gram-negative. 3. Obstructive jaundice with elevated bilirubin, AST, ALT, alkaline phosphatase. 4. History of recent endoscopic retrograde cholangiopancreatography and stent placement for choledocholithiasis. 5. Hyponatremia. 6. Increased white count. 7. Chronic obstructive pulmonary disease. 8. Continued ongoing nicotine dependence. 9. History of gastroesophageal reflux disease. 10.Degenerative joint disease. 11.History of pneumonia. 12.History of renal cell cancer with surgery on the left side. 13.Right iliac artery aneurysm, monitored as an outpatient. 14.History of bladder surgery. 15.Moderate to severe protein-calorie malnutrition with body mass index of 19.8. 16.History of recent weight loss. 17.FULL CODE. 18.Elevated CA-99. RECOMMENDATIONS AND DISCUSSION: In this 79-year-old gentleman who presented with multiple complex medical issues, we will monitor the patient closely, continue the current medications, continue symptomatic treatment, continue broad-spectrum IV antibiotics. The cultures are negative so far. Repeat labs in the morning. Otherwise, continue with the DVT prophylaxis. Closely follow with multiple consultants. CA-99 was noted. I would also recommend evaluation by Hematology/Oncology, Dr. Smith. The overall prognosis is guarded because of multiple complex medical issues. Further recommendations to follow. A copy of this dictation is being forwarded to Dr. Vieyra, who is the primary physician. MMSONYL / MISBAHN: [id number] /
--- NOTE | 2019-10-14 18:54 | P.PN ---
Subjective Progress Note Date: 10/14/19 Principal diagnosis: Choledocholithiasis, elevated liver enzymes Patient is seen lying in bed today reporting that he is tolerating his diet. Abdominal pain is improved, no nausea, vomiting or diarrhea. Objective - Vital Signs Vital signs: Vital Signs Temp 97 F L 10/14/19 04:00 Pulse 60 10/14/19 12:00 Resp 20 10/14/19 12:00 BP 112/58 10/14/19 12:00 Pulse Ox 97 10/14/19 12:00 Intake & Output 10/13/19 10/14/19 10/14/19 18:59 06:59 18:59 Intake Total 340 Output Total 500 850 Balance -500 -850 340 Weight 58.967 kg 60.9 kg Intake: Intake, IV Titration 100 Amount Meropenem 1 gm In Sodium 100 Chloride 0.9% 100 ml @ 200 mls/hr IVPB Q8H [facility] Rx#:[id number] Oral 240 Output: Urine 500 850 Other: Voiding Method Urinal Urinal # Bowel Movements 0 0 - Exam On physical examination, patient appears comfortable in no apparent distress. HEAD: Normocephalic, atraumatic. EYES: No scleral icterus. No conjunctival injection. MOUTH: No lesions, tongue midline. NECK: Trachea midline, no gross abnormalities. ABDOMEN: Soft, mildly tender to palpation. Bowel sounds are positive. No organomegaly. No guarding or rigidity. EXTREMITIES: No pedal edema. SKIN: No rashes, no jaundice. NEUROLOGIC: Alert and oriented x3. No focal deficits. - Labs CBC & Chem 7: 10/14/19 06:26 10/14/19 06:26 Labs: Abnormal Lab Results - Last 24 Hours (Table) 10/13/19 10/13/19 10/13/19 Range/Units 04:45 04:45 13:41 RBC (4.30-5.90) m/uL Hgb (13.0-17.5) gm/dL Hct (39.0-53.0) % MCV (80.0-100.0) fL ESR 76 H (0-15) mm/hr Glucose (74-99) mg/dL POC Glucose (mg/dL) (75-99) mg/dL Iron 17 L (65-175) ug/dL % Saturation 7.33 L (15.00-50.00) Total Bilirubin (0.2-1.3) mg/dL AST (17-59) U/L ALT (4-49) U/L Alkaline Phosphatase (38-126) U/L C-Reactive Protein (<10.0) mg/L Total Protein (6.3-8.2) g/dL Albumin (3.5-5.0) g/dL CA 19-9 Antigen 152.0 H (0.0-34.9) U/mL 10/13/19 10/13/19 10/13/19 Range/Units 13:41 16:46 20:56 RBC (4.30-5.90) m/uL Hgb (13.0-17.5) gm/dL Hct (39.0-53.0) % MCV (80.0-100.0) fL ESR (0-15) mm/hr Glucose (74-99) mg/dL POC Glucose (mg/dL) 113 H 123 H (75-99) mg/dL Iron (65-175) ug/dL % Saturation (15.00-50.00) Total Bilirubin (0.2-1.3) mg/dL AST (17-59) U/L ALT (4-49) U/L Alkaline Phosphatase (38-126) U/L C-Reactive Protein 89.6 H (<10.0) mg/L Total Protein (6.3-8.2) g/dL Albumin (3.5-5.0) g/dL CA 19-9 Antigen (0.0-34.9) U/mL 10/14/19 10/14/19 10/14/19 Range/Units 06:13 06:26 06:26 RBC 3.81 L (4.30-5.90) m/uL Hgb 12.0 L (13.0-17.5) gm/dL Hct 38.3 L (39.0-53.0) % MCV 100.6 H (80.0-100.0) fL ESR (0-15) mm/hr Glucose 100 H (74-99) mg/dL POC Glucose (mg/dL) 101 H (75-99) mg/dL Iron (65-175) ug/dL % Saturation (15.00-50.00) Total Bilirubin 1.9 H (0.2-1.3) mg/dL AST 67 H (17-59) U/L ALT 65 H (4-49) U/L Alkaline Phosphatase 1169 H (38-126) U/L C-Reactive Protein (<10.0) mg/L Total Protein 5.5 L (6.3-8.2) g/dL Albumin 2.4 L (3.5-5.0) g/dL CA 19-9 Antigen (0.0-34.9) U/mL 10/14/19 Range/Units 11:32 RBC (4.30-5.90) m/uL Hgb (13.0-17.5) gm/dL Hct (39.0-53.0) % MCV (80.0-100.0) fL ESR (0-15) mm/hr Glucose (74-99) mg/dL POC Glucose (mg/dL) 115 H (75-99) mg/dL Iron (65-175) ug/dL % Saturation (15.00-50.00) Total Bilirubin (0.2-1.3) mg/dL AST (17-59) U/L ALT (4-49) U/L Alkaline Phosphatase (38-126) U/L C-Reactive Protein (<10.0) mg/L Total Protein (6.3-8.2) g/dL Albumin (3.5-5.0) g/dL CA 19-9 Antigen (0.0-34.9) U/mL Microbiology - Last 24 Hours (Table) 10/13/19 04:45 Blood Culture - Preliminary Blood No Growth after 24 hours Assessment and Plan (1) Choledocholithiasis Narrative/Plan: Pleasant 79-year-old male who presents due to concerns over fevers, chills and is currently being treated for a right lower lobe pneumonia. Patient's liver enzymes were elevated on presentation and stable from prior examination with total bilirubin 3.7, alkaline phosphatase 1737, AST 155 and ALT 114 with patient having leukocytosis at 50.4. The patient recently underwent EGD, EUS and ERCP at [facility] with biopsies taken as well as placement of a biliary stent. He is scheduled for follow-up at [facility]. Imaging at that time was consistent with 2 large biliary stones. The case has been reviewed with the advanced endoscopy service at [facility] in the presence of pneumobilia on computed tomography scan as the technique/stents placed make obstruction less likely at this time. Overall liver enzymes improved today. Patient feeling better. Current Visit: Yes Status: Acute Code(s): K80.50 - CALCULUS OF BILE DUCT W/O CHOLANGITIS OR CHOLECYST W/O OBST SNOMED Code(s): 980683788 (2) Elevated liver enzymes Current Visit: Yes Status: Acute Code(s): R74.8 - ABNORMAL LEVELS OF OTHER SERUM ENZYMES SNOMED Code(s): 106639391 (3) Pneumonia Current Visit: Yes Status: Acute Code(s): J18.9 - PNEUMONIA, UNSPECIFIED ORGANISM SNOMED Code(s): 467859252 (4) Sepsis Current Visit: Yes Status: Acute Code(s): A41.9 - SEPSIS, UNSPECIFIED ORGANISM SNOMED Code(s): 97853712 Plan: Supportive care Okay for diet Continue monitor CBC, CMP Continue to monitor her symptomatically Continue broad-spectrum antibiotic therapy Case has been discussed with evidence endoscopy at [facility], okay to continue with broad-spectrum antibiotic therapy and supportive care No plans for endoscopic evaluation at this time Patient will follow up with [facility] as previously scheduled Thank you for allowing us to participate in the care of this patient we will continue to follow
[2019-10-14] MEDS: HYDROmorphone 0.5 MG/0.5 ML SYRINGE IVP PRN (20:36)
--- NOTE | 2019-10-14 21:00 | PN ---
PROGRESS NOTE DATE OF SERVICE: 10/14/2019 REASON FOR FOLLOWUP: Fever, possible pneumonia. INTERVAL HISTORY: The patient is currently afebrile, has been breathing comfortably. Patient denies having any chest pain or shortness of breath. Minimal cough, not bringing up any sputum. No nausea, no vomiting. No abdominal pain or diarrhea. PHYSICAL EXAMINATION: Blood pressure is 102/58 with a pulse of 84, temperature 98. He is 100% on room air. General description is an elderly male lying in bed in no distress. Respiratory system: Unlabored breathing. Clear to auscultation anteriorly. Heart S1, S2. Regular rate and rhythm. ABDOMEN: Soft. Mild tenderness in the right upper quadrant area. Extremities: No edema of the feet. LABS: Hemoglobin is 12, white count 7.0, BUN of 20, creatinine 0.88. mildly elevated. Blood cultures so far negative. DIAGNOSTIC IMPRESSION AND PLAN: Patient admitted to the hospital with a fever with concern for possible right lower lobe pneumonia in this patient who recently did have ERCP and CBD stent. This patient did have MULTIPLE ANTIBIOTIC ALLERGIES. Currently covered with meropenem to continue while waiting for the culture to finalize. Continue supportive care. MMODL / IJN: [id number] /
[2019-10-15] MEDS: oxyCODONE-APAP 10-325MG 1 EACH TAB PO PRN ×4 (04:39→23:18)
[2019-10-15 06:35] LABS: Basophils % (A) 0 %; Eosinophils # (A) 0.1 k/uL (0-0.7); Eosinophils % (A) 3 %; HCT 35.6 % (39.0-53.0); HGB 11.2 gm/dL (13.0-17.5); Lymphocytes # (A) 1.1 k/uL (1.0-4.8); Lymphocytes % (A) 23 %; MCH 31.8 pg (25.0-35.0); MCHC 31.6 g/dL (31.0-37.0); MCV 100.7 fL (80.0-100.0); Mean Platelet Volume 10.6; Monocytes # (A) 0.3 k/uL (0-1.0); Monocytes % (A) 6 %; Neutrophils # (A) 3.1 k/uL (1.3-7.7); Neutrophils % (A) 66 %; Platelet Count 225 k/uL (150-450); RBC 3.53 m/uL (4.30-5.90); RDW 13.4 % (11.5-15.5); WBC 4.7 k/uL (3.8-10.6)
[2019-10-15] MEDS: SODIUM CHLORIDE 0.9% 1,000 ML IV SCH ×3 (06:42→20:01)
[2019-10-15 06:57] LABS: ALT 48 U/L (4-49); AST 45 U/L (17-59); African American GFR (CKD) >90 (>60 ml/min/1.73 sqM); Albumin 2.4 g/dL (3.5-5.0); Alkaline Phosphatase 978 U/L (38-126); Anion Gap 5 mmol/L; Blood Urea Nitrogen 19 mg/dL (9-20); Calcium 8.4 mg/dL (8.4-10.2); Carbon Dioxide 27 mmol/L (22-30); Chloride 106 mmol/L (98-107); Glucose 88 mg/dL (74-99); Non-African American GFR(CKD) 89 (>60 ml/min/1.73 sqM); Potassium 4.1 mmol/L (3.5-5.1); Sodium 138 mmol/L (137-145); Total Bilirubin 1.1 mg/dL (0.2-1.3); Total Protein 5.5 g/dL (6.3-8.2)
[2019-10-15] MEDS: BUDESONIDE 1 MG/2 ML NEBU INHALATION SCH ×2 (08:14→20:45)
[2019-10-15] MEDS: IPRATROPIUM-ALBUTEROL 3 ML NEB INHALATION SCH ×3 (08:14→20:45)
[2019-10-15] MEDS: FORMOTEROL FUMARATE 20 MCG/2 ML NEBU INHALATION SCH ×2 (08:14→20:45)
[2019-10-15] MEDS: ASPIRIN 81 MG PO SCH (09:27)
[2019-10-15] MEDS: MEROPENEM 1 GM in SODIUM CHLORIDE 0.9% 100 ML IVPB SCH ×3 (09:27→23:18)
[2019-10-15] MEDS: NICOTINE 14MG/24HR PATCH TRANSDERM SCH (09:27)
[2019-10-15] MEDS: HEPARIN SODIUM,PORCINE 5,000 UNIT/ML 1 ML VIAL SQ SCH ×2 (09:27→20:05)
[2019-10-15] MEDS: PANTOPRAZOLE 40 MG/10 ML VIAL IVP SCH (09:28)
--- NOTE | 2019-10-15 11:12 | P.PN ---
Subjective Progress Note Date: 10/15/19 Principal diagnosis: Right lower lobe pneumonia 10/14/2019 patient seen in follow-up on selective care unit, he is resting comfortably in bed, in no acute distress, room air pulse ox is 97%, hemodynamically stable, breathing is nonlabored, no tachypnea, some chest pain, patient has been afebrile in over 24 hours, continues on meropenem. Today's labs have been reviewed, with blood cell count is 7.0, hemoglobin is 12, electrolytes and renal profile within normal limits, his liver enzymes are trending down, no nausea or vomiting, no abdominal pain On 10/15/2019 patient seen in follow-up on selective care unit. He is awake and alert, in no acute distress, he is up in the chair, he is on room air, no signs of any respiratory difficulty, pulse Ox in the 100%, respirations nonlabored, afebrile, he remains on coming a meropenem and vancomycin, sputum culture is pending, preliminary Gram stain showed moderate PMNs, but no organisms were seen, final cultures pending, blood culture has been negative. No nausea, vomiting, no abdominal pain. These labs have been reviewed showing white blood cell, 4.7, hemoglobin of 11.2, electrolytes and renal profile are within normal limits, his liver enzymes continued to trend down. Objective - Vital Signs Vital signs: Vital Signs Temp 97.5 F L 10/15/19 03:19 Pulse 62 10/15/19 08:38 Resp 16 10/15/19 03:19 BP 139/65 10/15/19 03:19 Pulse Ox 100 10/15/19 08:16 Intake & Output 10/14/19 10/15/19 10/15/19 18:59 06:59 18:59 Intake Total 700 460 Balance 700 460 Weight 61.6 kg Intake: Intake, IV Titration 100 Amount Meropenem 1 gm In Sodium 100 Chloride 0.9% 100 ml @ 200 mls/hr IVPB Q8H [facility] Rx#:[id number] Oral 600 460 Other: Voiding Method Toilet # Voids 1 # Bowel Movements 0 - Exam GENERAL EXAM: Alert, very pleasant, 79-year-old white male, on room air, with a pulse ox of 100% comfortable in no apparent distress. HEAD: Normocephalic/atraumatic. EYES: Normal reaction of pupils, equal size. Conjunctiva pink, sclera white. NOSE: Clear with pink turbinates. THROAT: No erythema or exudates. NECK: No masses, no JVD, no thyroid enlargement, no adenopathy. CHEST: No chest wall deformity. Symmetrical expansion. LUNGS: Equal air entry with no crackles, wheeze, rhonchi or dullness. CVS: Regular rate and rhythm, normal S1 and S2, no gallops, no murmurs, no rubs ABDOMEN: Soft, nontender. No hepatosplenomegaly, normal bowel sounds, no guarding or rigidity. EXTREMITIES: No clubbing, no edema, no cyanosis, 2+ pulses and upper and lower extremities. MUSCULOSKELETAL: Muscle strength and tone normal. SPINE: No scoliosis or deformity SKIN: No rashes CENTRAL NERVOUS SYSTEM: Alert and oriented -3. No focal deficits, tone is normal in all 4 extremities. PSYCHIATRIC: Alert and oriented -3. Appropriate affect. Intact judgment and insight. - Labs CBC & Chem 7: 10/15/19 05:58 10/15/19 05:58 Labs: Abnormal Lab Results - Last 24 Hours (Table) 10/14/19 10/15/19 10/15/19 Range/Units 11:32 05:58 05:58 RBC 3.53 L (4.30-5.90) m/uL Hgb 11.2 L (13.0-17.5) gm/dL Hct 35.6 L (39.0-53.0) % MCV 100.7 H (80.0-100.0) fL POC Glucose (mg/dL) 115 H (75-99) mg/dL Alkaline Phosphatase 978 H (38-126) U/L Total Protein 5.5 L (6.3-8.2) g/dL Albumin 2.4 L (3.5-5.0) g/dL Microbiology - Last 24 Hours (Table) 10/13/19 04:45 Blood Culture - Preliminary Blood No Growth after 48 hours 10/14/19 08:50 Gram Stain - Preliminary Sputum Assessment and Plan Plan: Assessment: #1. Acute right lower lobe pneumonia, possibly hospital-acquired #2. Probable underlying chronic obstructive pulmonary disease and chronic tobacco use and ongoing nicotine addiction #3. Recent biliary stent placement and [facility] for biliary obstruction #4. Multiple other medical problems and comorbidities Plan: Patient continues to be stable, no respiratory difficulty, room air pulse ox the 100%, Gram stain of the sputum showed no organisms, blood cultures have been negative, no fever or chills, patient has been treated with meropenem and vancomycin while in the hospital, ID service is following, and we'll make a recommendation on antibiotics after discharge. From pulmonary perspective patient is stable for discharge home today, his last chest x-ray today showed improving right lower lobe infiltrate. I performed a history & physical examination of the patient and discussed their management with my nurse practitioner, Freda Clayton. I reviewed the nurse practitioner's note and agree with the documented findings and plan of care. Lung sounds are positive for diminished breath sounds. The findings and the impression was discussed with the patient. I attest to the documentation by the nurse practitioner. Time with Patient: Less than 30
--- NOTE | 2019-10-15 12:06 | PN ---
PROGRESS NOTE DATE OF SERVICE: 10/15/2019 REASON FOR FOLLOWUP: Right lower lobe pneumonia. INTERVAL HISTORY: The patient is currently afebrile. The patient has been feeling better. Breathing comfortably. The patient denies having any chest pain, shortness of breath or cough. Denies any abdominal pain and no diarrhea. PHYSICAL EXAMINATION: Blood pressure 139/65 with a pulse of 60, temperature 97.5. He is 99% on room air. General description is an elderly male up in the chair in no distress. RESPIRATORY SYSTEM: Unlabored breathing, decreased breath sounds at the bases. No wheeze. HEART: S1, S2. Regular rate and rhythm. ABDOMEN: Soft. No tenderness. LABS: Hemoglobin 11.2, white count of 4.7, BUN of 19, creatinine 0.73. Blood cultures have been negative. Sputum culture currently pending. DIAGNOSTIC IMPRESSION AND PLAN: Patient admitted to the hospital with right lower lobe pneumonia. This patient did have recent ERCP and CBD stent. This patient does have multiple antibiotic allergies. Currently on meropenem that can be transitioned to Avelox for another 7 days and close outpatient followup. MMODL / IJN: [id number] /
--- NOTE | 2019-10-15 14:30 | P.PN ---
Subjective Progress Note Date: 10/15/19 Principal diagnosis: This is a 71-year-old male who was recently admitted with fever and weakness and also had recent obstructive jaundice with pancreatic stent placement at [facility] and is being closely monitored. Recent chest x-ray showing right lower lobe infiltrate improvement. Pulmonary, infectious disease, and GI are following. Patient currently remains on meropenem and will continue at this time. Blood culture and sputum culture thus far remain negative. Bilirubin continues to improve and is currently 1.1 and liver function slightly improving although alkaline phosphatase remains elevated. Currently 978. Objective - Vital Signs Vital signs: Vital Signs Temp 97.5 F L 10/15/19 03:19 Pulse 64 10/15/19 13:29 Resp 16 10/15/19 11:33 BP 124/59 10/15/19 11:33 Pulse Ox 99 10/15/19 11:33 Intake & Output 10/14/19 10/15/19 10/15/19 18:59 06:59 18:59 Intake Total 700 460 Output Total 500 Balance 700 -40 Weight 61.6 kg Intake: Intake, IV Titration 100 Amount Meropenem 1 gm In Sodium 100 Chloride 0.9% 100 ml @ 200 mls/hr IVPB Q8H [facility] Rx#:[id number] Oral 600 460 Output: Urine 500 Other: Voiding Method Toilet # Voids 1 1 # Bowel Movements 0 0 - Exam Gen: This is a 79-year-old male sitting up at the side of the bed, awake, alert and oriented 3, well-developed, well-nourished. Pulse is 60, respirations are 16, blood pressure is 124/59, oxygen saturation is 99% on room air. HEENT: Head is atraumatic, normocephalic. Pupils equal, round. Sclerae is anicteric. NECK: Supple. No JVD. No lymphadenopathy. No thyromegaly. LUNGS: Breath sounds diminished at the bases with a few scattered rhonchi noted. No wheezing noted on exam No intercostal retractions. HEART: S1, S2 are muffled ABDOMEN: Soft. Bowel sounds are present. No masses. No tenderness. EXTREMITIES: No pedal edema. No calf tenderness. NEUROLOGICAL: Patient is awake, alert and oriented x3. Cranial nerves 2 through 12 are grossly intact. - Labs CBC & Chem 7: 10/15/19 05:58 10/15/19 05:58 Labs: Abnormal Lab Results - Last 24 Hours (Table) 10/15/19 10/15/19 Range/Units 05:58 05:58 RBC 3.53 L (4.30-5.90) m/uL Hgb 11.2 L (13.0-17.5) gm/dL Hct 35.6 L (39.0-53.0) % MCV 100.7 H (80.0-100.0) fL Alkaline Phosphatase 978 H (38-126) U/L Total Protein 5.5 L (6.3-8.2) g/dL Albumin 2.4 L (3.5-5.0) g/dL Microbiology - Last 24 Hours (Table) 10/13/19 04:45 Blood Culture - Preliminary Blood No Growth after 48 hours 10/14/19 08:50 Gram Stain - Preliminary Sputum Assessment and Plan Assessment: Fever, possible acute cholangitis or sepsis Possible acute right lower lobe pneumonia, possibly gram-negative Obstructive jaundice with elevated bilirubin, AST, ALT, alkaline phosphatase History of recent endoscopic retrograde cholangiopancreatography and stent placement for choledocholelithiasis Hyponatremia Increased white blood count Chronic obstructive pulmonary disease Continued ongoing nicotine dependence History of gastroesophageal reflux disease Degenerative joint disease History of pneumonia History of renal cell carcinoma with surgery on the left side Right iliac artery aneurysm, monitored as an outpatient History of bladder surgery Moderate protein calorie malnutrition with a body mass index of 19.8 History of recent weight loss Full code Elevated CA 99 Recommendations and discussion: Recommend to continue current medications, management, and symptomatic treatment. Patient to remain on IV meropenem. Infectious disease is following. Will continue to monitor patient closely. Due to multiple complex medical issues, prognosis is guarded. Further recommendations to follow. Possible discharge in 24-48 hours.
[2019-10-15] MEDS: PANTOPRAZOLE 40 MG TABLET PO SCH (17:17)
[2019-10-15 18:14] LABS: Ferritin 388.2 ng/mL (22.0-322.0)
--- NOTE | 2019-10-15 18:33 | P.CONS ---
History of Present Illness - Reason for Consult Consult date: 10/15/19 elevated Ca-19.9, Hx [facility] Requesting physician: Ha Corona - Chief Complaint fever - History of Present Illness Mr. Pineda is a very pleasant 79-year-old male who was admitted with fevers, diagnosed with sepsis/pneumonia. Patient has recently been worked up at [facility] in [place] due to elevated liver enzymes and concern for biliary mass or obstruction. Had endoscopy 10/07/19, findings included torturous duodenum, mild, diffuse wall thickening of the entire stomach, normal appearing pancreas, without evidence of mass, no abnormal lymphadenopathy in the abdomen, there was evidence of possible extrinsic compression on the stomach, no si gnificant mucosal disease was appreciated. He had ERCP same day that showed abrupt narrowing of the main bile duct at the ampullary concerning for malignancy, marked upstream ductal dilation, positive for cholelithiasis and large stones in the main bile duct, sphincterotomy were deferred at that time, brushings of the ampulla/terminal bile duct were done. 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 Patient states that he has lost 30 pounds in the last 4 months, due to anorexia, he denied LN swelling, nausea, vomiting, abd bloating, distension, indigestion, acute changes in his bowel habits he in general has not been feeling well, his LFTs and alkaline phosphatase were significantly elevated on admission, this has come down since, he is positive for macrocytic anemia, CA-19-9 was 152, CT of the abdomen and pelvis is showing chronic biliary tree dilation. Review of Systems 14 point review of systems is negative except as stated in HPI Past Medical History Past Medical History: Cancer, Chest Pain / Angina, COPD, Eye Disorder, GERD/Reflux, Osteoarthritis (OA), Pneumonia, Vascular Disorder Additional Past Medical History / Comment(s): 09/22/19 EGD with unsuccessful ERCP, 10/07/19 [facility] ERCP with CBD stent-awaiting pathology report, recent early saety/wt loss, 1989 L renal cancer with surgery/has bulge at incisional area, 2006 benign bladder tumor per pt, R iliac artery aneurysm being monitored, arthr itis/pain in back/neck and has bilateral leg pain at times, 20% vision in L eye, varicose veins, chronic sinus problems. Pt has fragile skin-all tape causes skin tears. History of Any Multi-Drug Resistant Organisms: None Reported Past Surgical History: Bladder Surgery, Hernia Repair Additional Past Surgical History / Comment(s): 1989 L nephroureterectomy for cancer/couple ribs removed, 2006 TURP/resection bladder tumors, ventral hernia repair, bilateral inguinal hernia repairs, EGDs, colonoscopies, michael rectal abscesses with I&Ds, ERCP 10/07/19 at [facility] with CBD stent placed-awaiting path report. Past Anesthesia/Blood Transfusion Reactions: No Reported Reaction Smoking Status: Current every day smoker - Past Family History Mother Family Medical History: No Reported History Additional Family Medical History / Comment(s): at age 93 Father Family Medical History: Vascular Disorder Additional Family Medical History / Comment(s): Father in his 60s from a ruptured abdominal aneurysm Medications and Allergies Home Medications Medication Instructions Recorded Confirmed Type Celecoxib [CeleBREX] 200 mg PO DAILY 08/01/14 10/13/19 History oxyCODONE-APAP 10-325MG [Percocet 1 tab PO QID PRN 08/01/14 10/13/19 History 10-325 mg] Albuterol Inhaler [Ventolin Hfa 1 - 2 puff INHALATION RT-Q6H PRN 09/26/19 10/13/19 History Inhaler] Aspirin [Adult Low Dose Aspirin EC] 81 mg PO DAILY 09/26/19 10/13/19 History Allergies Allergy/AdvReac Type Severity Reaction Status Date / Time Latex, Natural Rubber Allergy Unknown Red skin Verified 10/13/19 07:59 Penicillins Allergy Unknown Rash/Hives Verified 10/13/19 07:59 adhesive Allergy blisters,tears Verified 10/13/19 07:59 skin Cephalosporins Allergy Rash/Hives Verified 10/13/19 07:59 erythromycin base Allergy Rash/Hives Verified 10/13/19 07:59 Sulfa (Sulfonamide Allergy Unknown Verified 10/13/19 07:59 Antibiotics) Iodinated Contrast Media AdvReac Anaphylaxis Verified 10/13/19 07:59 [Iodinated Contrast Media - IV Dye] tape Allergy Mild blisters Uncoded 10/13/19 07:59 skin,peels skin,states "paper tape ok" Physical Exam Vitals: Vital Signs Temp Pulse Pulse Resp BP Pulse Ox 10/15/19 15:32 71 16 127/64 99 10/15/19 13:29 64 10/15/19 13:20 60 10/15/19 11:33 60 16 124/59 99 10/15/19 08:38 62 10/15/19 08:29 64 10/15/19 08:16 58 L 100 10/15/19 08:00 70 16 124/60 100 10/15/19 03:19 97.5 F L 60 16 139/65 99 10/15/19 00:00 97.7 F 60 16 133/65 98 10/14/19 20:11 70 10/14/19 20:00 97.7 F 71 17 110/58 99 10/14/19 19:59 70 10/14/19 19:50 70 Intake and Output 10/15/19 10/15/19 10/15/19 06:59 14:59 22:59 Intake Total 800 Output Total 500 Balance 300 Intake: Intake, IV Titration 100 Amount Meropenem 1 gm In Sodium 100 Chloride 0.9% 100 ml @ 200 mls/hr IVPB Q8H [facility] Rx#:[id number] Oral 700 Output: Urine 500 Other: Voiding Method Toilet # Voids 1 1 # Bowel Movements 0 Weight 61.6 kg - Constitutional General appearance: cooperative, no acute distress, thin - EENT Eyes: anicteric sclerae, EOMI ENT: hearing grossly normal, normal oropharynx - Neck Neck: no lymphadenopathy - Respiratory Respiratory: bilateral: CTA, diminished - Cardiovascular Rhythm: regular Heart sounds: normal: S1, S2 Abnormal Heart Sounds: no systolic murmur, no diastolic murmur, no rub, no S3 Gallop, no S4 Gallop, no click, no other leg Peripheral Edema: bilateral: None - Gastrointestinal General gastrointestinal: no absent bowel sounds, no decreased bowel sounds, no distended, no hepatomegaly, no hyperactive bowel sounds, normal bowel sounds, no organomegaly, no rigid, no scaphoid, soft, no splenomegaly, tenderness, no umbilical hernia, no ventral hernia Localized gastrointestinal: tender: RUQ - Integumentary Integumentary: normal - Neurologic Neurologic: CNII-XII intact - Musculoskeletal Musculoskeletal: strength equal bilaterally - Psychiatric Psychiatric: A&O x's 3, appropriate affect, intact judgment & insight Results CBC & Chem 7: 10/15/19 05:58 10/15/19 05:58 Labs: Abnormal Lab Results - Last 24 Hours (Table) 10/15/19 10/15/19 Range/Units 05:58 05:58 RBC 3.53 L (4.30-5.90) m/uL Hgb 11.2 L (13.0-17.5) gm/dL Hct 35.6 L (39.0-53.0) % MCV 100.7 H (80.0-100.0) fL Alkaline Phosphatase 978 H (38-126) U/L Total Protein 5.5 L (6.3-8.2) g/dL Albumin 2.4 L (3.5-5.0) g/dL Microbiology - Last 24 Hours (Table) 10/13/19 04:45 Blood Culture - Preliminary Blood No Growth after 48 hours 10/14/19 08:50 Gram Stain - Preliminary Sputum Comments: Summary of documents from [facility] in [place] scan - abdomen: report reviewed CT scan - pelvis: report reviewed Assessment and Plan (1) Elevated CA 19-9 level Current Visit: Yes Status: Acute Priority: High Code(s): R97.8 - OTHER ABNORMAL TUMOR MARKERS SNOMED Code(s): 56324776006289353 (2) Weight loss Current Visit: Yes Status: Acute Priority: High Code(s): R63.4 - ABNORMAL WEIGHT LOSS SNOMED Code(s): 44247266 (3) Elevated liver enzymes Current Visit: Yes Status: Acute Priority: High Code(s): R74.8 - ABNORMAL LEVELS OF OTHER SERUM ENZYMES SNOMED Code(s): 118080662 Plan: Patient presentation is very concerning. Summary of the [facility] medical records- EUS, ERCP and biopsies- there in no documentation/confirmation of malignancy yet. Explained to pt CA 19 9 is not diagnostic for cancer and it can be elevated in situations where there is inflammation/irritation in the abdomen area. The higher the number the greater the possibility of malignancy. At 152, without other positive data, difficult to say if this is just reactive. Acutely, patient's situation is concerning for the significant LFT elevation. This has come down rather dramatically in just the day. Questioning if there was some obstruction at the stent that has resolved. Continue with labs daily. He is due to follow up [facility] and we would recommend he do the same for continuity of care, teritary services. attests: I have performed H&P and developed impression and plan of care for patient, discussed with dictator. I agree with dictated note, documented as a scribe
--- NOTE | 2019-10-15 18:33 | P.PN ---
Subjective Progress Note Date: 10/15/19 Principal diagnosis: Choledocholithiasis, elevated liver enzymes Patient is seen lying in bed and continues to report feeling better overall. He had a bowel movement today, nonbloody and non-melanotic. No nausea or vomiting. Overall abdominal pain is improved. Objective - Vital Signs Vital signs: Vital Signs Temp 97.5 F L 10/15/19 03:19 Pulse 71 10/15/19 15:32 Resp 16 10/15/19 15:32 BP 127/64 10/15/19 15:32 Pulse Ox 99 10/15/19 15:32 Intake & Output 10/14/19 10/15/19 10/15/19 18:59 06:59 18:59 Intake Total 700 800 Output Total 500 Balance 700 300 Weight 61.6 kg Intake: Intake, IV Titration 100 100 Amount Meropenem 1 gm In Sodium 100 100 Chloride 0.9% 100 ml @ 200 mls/hr IVPB Q8H [facility] Rx#:[id number] Oral 600 700 Output: Urine 500 Other: Voiding Method Toilet # Voids 1 1 # Bowel Movements 0 0 - Exam On physical examination, patient appears comfortable in no apparent distress. HEAD: Normocephalic, atraumatic. EYES: No scleral icterus. No conjunctival injection. MOUTH: No lesions, tongue midline. NECK: Trachea midline, no gross abnormalities. ABDOMEN: Soft, mildly tender to palpation. Bowel sounds are positive. No organomegaly. No guarding or rigidity. EXTREMITIES: No pedal edema. SKIN: No rashes, no jaundice. NEUROLOGIC: Alert and oriented x3. No focal deficits. - Labs CBC & Chem 7: 10/15/19 05:58 10/15/19 05:58 Labs: Abnormal Lab Results - Last 24 Hours (Table) 10/15/19 10/15/19 10/15/19 Range/Units 05:58 05:58 05:58 RBC 3.53 L (4.30-5.90) m/uL Hgb 11.2 L (13.0-17.5) gm/dL Hct 35.6 L (39.0-53.0) % MCV 100.7 H (80.0-100.0) fL Ferritin 388.2 H (22.0-322.0) ng/mL Alkaline Phosphatase 978 H (38-126) U/L Total Protein 5.5 L (6.3-8.2) g/dL Albumin 2.4 L (3.5-5.0) g/dL Microbiology - Last 24 Hours (Table) 10/13/19 04:45 Blood Culture - Preliminary Blood No Growth after 48 hours 10/14/19 08:50 Gram Stain - Preliminary Sputum Assessment and Plan (1) Choledocholithiasis Narrative/Plan: Pleasant 79-year-old male who presents due to concerns over fevers, chills and is currently being treated for a right lower lobe pneumonia. Patient's liver enzymes were elevated on presentation and stable from prior examination with total bilirubin 3.7, alkaline phosphatase 1737, AST 155 and ALT 114 with patient having leukocytosis at 50.4. The patient recently underwent EGD, EUS and ERCP at [facility] with biopsies taken as well as placement of a biliary stent. He is scheduled for follow-up at [facility]. Imaging at that time was consistent with 2 large biliary stones. The case has been reviewed with the advanced endoscopy service at [facility] in the presence of pneumobilia on computed tomography scan as the technique/stents placed make obstruction less likely at this time. Overall liver enzymes continue to trend down and patient is feeling better. Current Visit: Yes Status: Acute Code(s): K80.50 - CALCULUS OF BILE DUCT W/O CHOLANGITIS OR CHOLECYST W/O OBST SNOMED Code(s): 551932401 (2) Elevated liver enzymes Current Visit: Yes Status: Acute Code(s): R74.8 - ABNORMAL LEVELS OF OTHER SERUM ENZYMES SNOMED Code(s): 126519474 (3) Pneumonia Current Visit: Yes Status: Acute Code(s): J18.9 - PNEUMONIA, UNSPECIFIED ORGANISM SNOMED Code(s): 694858196 (4) Sepsis Current Visit: Yes Status: Acute Code(s): A41.9 - SEPSIS, UNSPECIFIED ORGANISM SNOMED Code(s): 49108959 Plan: Supportive care Okay for diet Continue monitor CBC, CMP Continue to monitor her symptomatically Continue broad-spectrum antibiotic therapy Case has been discussed with evidence endoscopy at [facility], okay to continue with broad-spectrum antibiotic therapy and supportive care No plans for endoscopic evaluation at this time Patient will follow up with [facility] as previously scheduled Thank you for allowing us to participate in the care of this patient we will continue to follow
[2019-10-15] MEDS: HYDROmorphone 0.5 MG/0.5 ML SYRINGE IVP PRN (20:05)
[2019-10-16] MEDS: HYDROmorphone 0.5 MG/0.5 ML SYRINGE IVP PRN (03:05)
[2019-10-16] MEDS: oxyCODONE-APAP 10-325MG 1 EACH TAB PO PRN ×2 (05:38→13:04)
[2019-10-16 07:19] LABS: Glucose,Whole Blood 82 mg/dL (75-99)
[2019-10-16 07:52] LABS: Appearance,Urine Clear (Clear); Bilirubin,Urine Negative (Negative); Blood,Urine Negative (Negative); Color,Urine Yellow; Glucose,Urine (UA) Negative (Negative); Ketones,Urine Negative (Negative); Leukocyte Esterase,Urine Negative (Negative); Nitrite,Urine Negative (Negative); PH, Urine 6.5 (5.0-8.0); Protein,Urine Negative (Negative); Specific Gravity,Urine 1.009 (1.001-1.035); Urobilinogen,Urine <2.0 mg/dL (<2.0)
[2019-10-16] MEDS: ASPIRIN 81 MG PO SCH (08:11)
[2019-10-16] MEDS: HEPARIN SODIUM,PORCINE 5,000 UNIT/ML 1 ML VIAL SQ SCH (08:12)
[2019-10-16] MEDS: NICOTINE 14MG/24HR PATCH TRANSDERM SCH (08:12)
[2019-10-16] MEDS: PANTOPRAZOLE 40 MG TABLET PO SCH (08:12)
[2019-10-16] MEDS: FORMOTEROL FUMARATE 20 MCG/2 ML NEBU INHALATION SCH (08:14)
[2019-10-16] MEDS: BUDESONIDE 1 MG/2 ML NEBU INHALATION SCH (08:14)
[2019-10-16] MEDS: IPRATROPIUM-ALBUTEROL 3 ML NEB INHALATION SCH ×2 (08:14→13:45)
[2019-10-16] MEDS: MEROPENEM 1 GM in SODIUM CHLORIDE 0.9% 100 ML IVPB SCH (08:16)
[2019-10-16 08:42] LABS: Basophils % (A) 0 %; Eosinophils # (A) 0.2 k/uL (0-0.7); Eosinophils % (A) 3 %; HCT 38.2 % (39.0-53.0); Lymphocytes # (A) 1.3 k/uL (1.0-4.8); Lymphocytes % (A) 26 %; MCH 31.6 pg (25.0-35.0); MCHC 31.3 g/dL (31.0-37.0); MCV 100.8 fL (80.0-100.0); Mean Platelet Volume 10.6; Monocytes # (A) 0.3 k/uL (0-1.0); Monocytes % (A) 6 %; Neutrophils # (A) 3.1 k/uL (1.3-7.7); Neutrophils % (A) 61 %; Platelet Count 250 k/uL (150-450); RBC 3.79 m/uL (4.30-5.90); RDW 13.3 % (11.5-15.5)
[2019-10-16 08:53] LABS: ALT 53 U/L (4-49); AST 53 U/L (17-59); African American GFR (CKD) >90 (>60 ml/min/1.73 sqM); Albumin 2.8 g/dL (3.5-5.0); Alkaline Phosphatase 1155 U/L (38-126); Anion Gap 5 mmol/L; Blood Urea Nitrogen 14 mg/dL (9-20); Calcium 8.7 mg/dL (8.4-10.2); Carbon Dioxide 34 mmol/L (22-30); Chloride 100 mmol/L (98-107); Glucose 78 mg/dL (74-99); Non-African American GFR(CKD) 87 (>60 ml/min/1.73 sqM); Potassium 4.2 mmol/L (3.5-5.1); Sodium 139 mmol/L (137-145); Total Bilirubin 1.1 mg/dL (0.2-1.3)
[2019-10-16 11:16] LABS: Glucose,Whole Blood 102 mg/dL (75-99)
[2019-10-16 11:52] VITALS: BP 115/63; PULSE 61; RESP 17; TEMP 97.3
--- NOTE | 2019-10-16 13:07 | PN ---
PROGRESS NOTE DATE OF SERVICE: 10/16/2019 REASON FOR FOLLOWUP: Right lower lobe pneumonia. INTERVAL HISTORY: The patient is currently afebrile. The patient has been breathing comfortably. The patient denies having any chest pain, shortness of breath. Minimal cough. No nausea, no abdominal pain, no diarrhea. PHYSICAL EXAMINATION: Blood pressure 115/53 with a pulse of 61. Temperature is 97.8. He is 98% on room air. General description is an elderly male, lying in bed in no distress. RESPIRATORY SYSTEM: Unlabored breathing, decreased breath sounds at the base, no wheeze. HEART: S1, S2. Regular rate and rhythm. ABDOMEN: Soft, no tenderness. LABS: Hemoglobin is 12, white count 5.0, creatinine 0.78. Blood and sputum culture have been negative. DIAGNOSTIC IMPRESSION AND PLAN: Patient with right lower lobe pneumonia. Patient did have multiple antibiotic allergies. Currently did well on the meropenem antibiotic, will be switched to Avelox 400 daily for 7 days to finish his course of therapy. Continue supportive care. MMODL / IJN: [id number] /
[2019-10-16 13:54] VITALS: BMI 20.6
--- NOTE | 2019-10-16 13:58 | P.DS ---
Providers Date of admission: 10/13/19 07:09 Expected date of discharge: 10/16/19 Attending physician: Gary Bailon MD Consults: 10/13/19 07:09 Consult Physician Routine Consulting Provider: Abbey Antoine Consult Reason/Comments: pneumonia Do you want consulting provider notified?: Yes, Notify in am 10/13/19 12:59 Consult Physician Routine Consulting Provider: Lennie Chandler Consult Reason/Comments: cholangitis, sepsis Do you want consulting provider notified?: Yes 10/14/19 11:25 Consult Physician Routine Consulting Provider: Lang Smith Consult Reason/Comments: evlated CA-19, hx renal CA Do you want consulting provider notified?: Yes [facility] Course: Final diagnosis Fever, possible acute cholangitis or sepsis Possible acute right lower lobe pneumonia, possibly gram-negative Obstructive jaundice with elevated bilirubin, AST, ALT, alkaline phosphatase History of recent endoscopic retrograde cholangiopancreatography and stent placement for choledocholelithiasis Hyponatremia Increased white blood count Chronic obstructive pulmonary disease Continued ongoing nicotine dependence History of gastroesophageal reflux disease Degenerative joint disease History of pneumonia History of renal cell carcinoma with surgery on the left side Right iliac artery aneurysm, monitored as an outpatient History of bladder surgery Moderate protein calorie malnutrition with a body mass index of 19.8 History of recent weight loss Full code Elevated CA 99 Discharge disposition Patient is being discharged in a stable condition with guarded prognosis to home and will follow-up with Dr. Vieyra in the outpatient setting upon discharge. Patient also instructed to follow-up with Dr. Don and Dr. Chandler in the outpatient setting as well. Patient will continue to follow-up with [facility] as already previously scheduled. Patient will continue her short course of oral antibiotics in the form of Avelox 400 mg daily for the next one week. Total time taken is 35 minutes. History of present illness This is a 71-year-old male who was recently admitted with possible acute right lower lobe pneumonia, fevers, and weakness and was being closely monitored. Patient was also found to have recent obstructive jaundice with pancreatic stent placement at [facility] facility. During hospitalization patient was found to have elevated liver functions, elevated alkaline phosphatase, elevated bilirubin, and mildly elevated CA 99. Multiple medical consultations are following. Patient was given IV meropenem and tolerated well and will continue with oral Avelox 400 mg daily for the next one week. Patient instructed to follow-up with Dr. Dr. Chandler along with Dr. Don in the outpatient setting. Patient will also need to follow-up with Sudeep Quarles as he had a follow-up appointment status post pancreatic stent placement. Patient was also evaluated by GI and recommending continued follow-up with Sudeep Quarles. During hospi talization patient's liver functions and alkaline phosphatase were elevated and it is recommended for repeat labs in a few days to monitor these functions. Currently patient has no reports of chest pain, shortness of breath, or palpitations. Patient is afebrile. No reports of nausea or vomiting and patient is tolerating diet. Patient states he would really like to go home today. Patient will be discharged today. On exam vital signs are stable. Temp is 97.3F, pulse is 61, respirations are 17, blood pressure is 115/63, oxygen saturation is 98% on room air. Cardio S1, S2 are muffled. Respiratory system shows diminished breath sounds at the bases with no wheezing or rhonchi noted. Abdomen is soft, thin, nontender. Nervous system shows no focal deficits. Please refer to medication reconciliation sheet for a list of medications. Patient Condition at Discharge: Stable Plan - Discharge Summary Discharge Rx Participant: No New Discharge Prescriptions: New Moxifloxacin HCl [Avelox] 400 mg PO DAILY 7 Days #7 tablet Continue oxyCODONE-APAP 10-325MG [Percocet 10-325 mg] 1 tab PO QID PRN PRN Reason: Pain Celecoxib [CeleBREX] 200 mg PO DAILY Aspirin [Adult Low Dose Aspirin EC] 81 mg PO DAILY Albuterol Inhaler [Ventolin Hfa Inhaler] 1 - 2 puff INHALATION RT-Q6H PRN PRN Reason: Shortness Of Breath Discharge Medication List Celecoxib [CeleBREX] 200 mg PO DAILY 08/01/14 [History] oxyCODONE-APAP 10-325MG [Percocet 10-325 mg] 1 tab PO QID PRN 08/01/14 [History] Albuterol Inhaler [Ventolin Hfa Inhaler] 1 - 2 puff INHALATION RT-Q6H PRN 09/26/19 [History] Aspirin [Adult Low Dose Aspirin EC] 81 mg PO DAILY 09/26/19 [History] Moxifloxacin HCl [Avelox] 400 mg PO DAILY 7 Days #7 tablet 10/16/19 [Rx] Follow up Appointment(s)/Referral(s): John Don DO [Doctor of Osteopathic Medicine] - 10/24/19 2:15 pm (Sunday -please arrive 15mins early) Dayday Vieyra DO [Primary Care Provider] - 10/20/19 8:20 am (Sunday) Lennie Chandler MD [STAFF PHYSICIAN] - 10/28/19 10:30 am Ambulatory/Diagnostic Orders: Complete Blood Count w/diff [LAB.AMB] Time Frame: 2 Days, Location: None Selected Comprehensive Metabolic Panel [LAB.AMB] Time Frame: 2 Days, Location: None Adali llamas Patient Instructions/Handouts: Moxifloxacin (By mouth), Pneumonia (DC) Activity/Diet/Wound Care/Special Instructions: Activity Limited until follow-up Follow-up with primary care provider upon discharge Follow-up with Sudeep Quarles as discussed in previously scheduled Continue antibiotics until finished Continue current diet Repeat labs in 2-3 days Discharge Disposition: HOME SELF-CARE
--- NOTE | 2019-10-16 18:55 | P.PN ---
Subjective Progress Note Date: 10/16/19 Principal diagnosis: elevated LFTs, suspicions for pancreatic adenocarcinoma/biliary malignancy In follow-up today patient seemed to be doing fairly well, denied fevers, appetite is still poor, no nausea, vomiting, he does have some mild epigastric discomfort, urine is no longer dark colored. Denies abdominal distention or lower extremity swelling. Objective - Vital Signs Vital signs: Vital Signs Temp 97.3 F L 10/16/19 11:51 Pulse 61 10/16/19 11:51 Resp 17 10/16/19 11:51 BP 115/63 10/16/19 11:51 Pulse Ox 98 10/16/19 11:51 Intake & Output 10/15/19 10/16/19 10/16/19 18:59 06:59 18:59 Intake Total 1484 690 Output Total 500 Balance 984 690 Weight 61.6 kg Intake: Intake, IV Titration 100 100 Amount Meropenem 1 gm In Sodium 100 100 Chloride 0.9% 100 ml @ 200 mls/hr IVPB Q8H [facility] Rx#:[id number] Oral 1384 590 Output: Urine 500 Other: Voiding Method Toilet # Voids 3 1 3 # Bowel Movements 0 1 - Constitutional General appearance: Present: cooperative, no acute distress, thin - EENT Eyes: Present: anicteric sclerae, EOMI ENT: Present: hearing grossly normal - Respiratory Respiratory: bilateral: CTA - Cardiovascular Heart sounds: normal: S1, S2 Abnormal Heart Sounds: Absent: systolic murmur, diastolic murmur, rub, S3 Gallop, S4 Gallop, click, other - Peripheral edema leg Peripheral Edema: bilateral: None - Gastrointestinal General gastrointestinal: Present: soft, tenderness - Neurologic Neurologic: Present: CNII-XII intact - Musculoskeletal Musculoskeletal: Present: generalized weakness, strength equal bilaterally - Psychiatric Psychiatric: Present: A&O x's 3, appropriate affect, intact judgment & insight - Labs CBC & Chem 7: 10/16/19 08:05 10/16/19 08:05 Labs: Abnormal Lab Results - Last 24 Hours (Table) 10/15/19 10/16/19 10/16/19 Range/Units 05:58 08:05 08:05 RBC 3.79 L (4.30-5.90) m/uL Hgb 12.0 L (13.0-17.5) gm/dL Hct 38.2 L (39.0-53.0) % MCV 100.8 H (80.0-100.0) fL Carbon Dioxide 34 H (22-30) mmol/L POC Glucose (mg/dL) (75-99) mg/dL ALT 53 H (4-49) U/L Alkaline Phosphatase 1155 H (38-126) U/L Total Protein 6.0 L (6.3-8.2) g/dL Albumin 2.8 L (3.5-5.0) g/dL RBC Folate 821 H (280 - 791) ng/mL 10/16/19 Range/Units 11:15 RBC (4.30-5.90) m/uL Hgb (13.0-17.5) gm/dL Hct (39.0-53.0) % MCV (80.0-100.0) fL Carbon Dioxide (22-30) mmol/L POC Glucose (mg/dL) 102 H (75-99) mg/dL ALT (4-49) U/L Alkaline Phosphatase (38-126) U/L Total Protein (6.3-8.2) g/dL Albumin (3.5-5.0) g/dL RBC Folate (280 - 791) ng/mL Microbiology - Last 24 Hours (Table) 10/14/19 08:50 Gram Stain - Final Sputum Sputum Culture - Final 10/13/19 04:45 Blood Culture - Preliminary Blood No Growth after 72 hours Assessment and Plan (1) Elevated liver enzymes Status: Acute Code(s): R74.8 - ABNORMAL LEVELS OF OTHER SERUM ENZYMES SNOMED Code(s): 191295627 Plan: Patient presentation is very concerning. Summary of the [facility] medical records- EUS, ERCP and biopsies- there in no documentation/confirmation of malignancy yet. This was discussed with pt. Acutely, patient's situation is concerning for the significant LFT elevation. Questioning if there is some intermittent obstruction at the stent-LFTs are up today. Patient strongly encouraged to follow up [facility] for results of his testing and their plan of care.
[2019-10-17 07:38] LABS: Methylmalonic Acid 0.39 umol/L (<0.40)
== END 2019-10-16 14:05 | disposition home or self-care (01) | DRG 871 ==
LOC: EC 04:21 → 3SCARD 07:09 → 5NMEDONC 10-15 18:18
PROVIDERS: ADMIT Internal Medicine; ATTEND Internal Medicine
DX: A41.50 Gram-negative sepsis, unspecified (principal); J18.9 Pneumonia, unspecified organism; E44.0 Moderate protein-calorie malnutrition; Z68.1 Body mass index [BMI] 19.9 or less, adult; E87.1 Hypo-osmolality and hyponatremia; J44.0 Chronic obstructive pulmonary disease with (acute) lower respiratory infection; J98.11 Atelectasis; K80.31 Calculus of bile duct with cholangitis, unspecified, with obstruction; F17.210 Nicotine dependence, cigarettes, uncomplicated; D53.9 Nutritional anemia, unspecified; H54.7 Unspecified visual loss; H91.90 Unspecified hearing loss, unspecified ear; I72.3 Aneurysm of iliac artery; M19.90 Unspecified osteoarthritis, unspecified site; Z79.1 Long term (current) use of non-steroidal anti-inflammatories (NSAID); Z79.82 Long term (current) use of aspirin; Z79.899 Other long term (current) drug therapy; Z85.528 Personal history of other malignant neoplasm of kidney; Z87.01 Personal history of pneumonia (recurrent); Z88.0 Allergy status to penicillin; Z88.1 Allergy status to other antibiotic agents; Z90.5 Acquired absence of kidney; K21.9 Gastro-esophageal reflux disease without esophagitis; R63.4 Abnormal weight loss; Z88.2 Allergy status to sulfonamides; Z91.041 Radiographic dye allergy status; Z91.040 Latex allergy status; G89.29 Other chronic pain; M54.9 Dorsalgia, unspecified; Z96.89 Presence of other specified functional implants
CPT/HCPCS: 36415; 71045; 71046; 74176; 80053; 80074; 81003; 82103; 82105; 82390; 82607; 82728; 82747; 83516; 83540; 83550; 83605; 83921; 85025; 85610; 85652; 85730; 86038; 86140; 86301; 86376; 87040; 87070; 87205; 87502; 93005; 94640; 94760; 96365; 96367; 99285

== ENCOUNTER 2020-11-26 20:37 | Emergency (ER) | payer MEDICARE ==
--- NOTE | 2020-11-26 20:58 | XR ---
EXAMINATION TYPE: XR chest 2V DATE OF EXAM: 11/26/2020 COMPARISON: 10/14/2019 HISTORY: Short of breath TECHNIQUE: 2 views FINDINGS: There is some mild infiltrate at the right lung base. There is pulmonary hyperinflation wit h flattening of the diaphragm. There are no hilar masses. Heart size is normal. There is no heart laura lure. IMPRESSION: There is some new infiltrate at the right lung base posteriorly compared to old exam. The re is probably COPD. No heart failure.
--- NOTE | 2020-11-26 21:12 | ED ---
General Adult HPI - General Chief complaint: Shortness of Breath Stated complaint: SOB Time Seen by Provider: 11/26/20 21:08 Source: patient Mode of arrival: ambulatory Limitations: no limitations - History of Present Illness Initial comments: 80-year-old female presents to emergency department with a chief complaint of cough and congestion. Patient reports the symptoms began about 8 days ago and he was tested but is still awaiting results. Patient reports a nonproductive nonproductive cough. He also reports generalized myalgias and fatigue. States she does have decreased appetite although still able to keep fluids down. Denies any nausea vomiting diarrhea. Does report occasional exertional dyspnea but denies any chest pain. He also reports fevers and chills. He has been taking Tylenol for the fevers itself. Patient states he does not want to be admitted and is only located for treatment. - Related Data Home Medications Medication Instructions Recorded Confirmed Celecoxib [CeleBREX] 200 mg PO DAILY 08/01/14 10/13/19 oxyCODONE-APAP 10-325MG [Percocet 1 tab PO QID PRN 08/01/14 10/13/19 10-325 mg] Albuterol Inhaler (Mhu) [Ventolin 1 - 2 puff INHALATION RT-Q6H PRN 09/26/19 10/13/19 Hfa Inhaler (Mhu)] Aspirin [Adult Low Dose Aspirin EC] 81 mg PO DAILY 09/26/19 10/13/19 Previous Rx's Medication Instructions Recorded Moxifloxacin HCl [Avelox] 400 mg PO DAILY 7 Days #7 tablet 10/16/19 Allergies Allergy/AdvReac Type Severity Reaction Status Date / Time Latex, Natural Rubber Allergy Unknown Red skin Verified 11/26/20 20:43 Penicillins Allergy Unknown Rash/Hives Verified 11/26/20 20:43 adhesive Allergy blisters,tears Verified 11/26/20 20:43 skin Cephalosporins Allergy Rash/Hives Verified 11/26/20 20:43 erythromycin base Allergy Rash/Hives Verified 11/26/20 20:43 Sulfa (Sulfonamide Allergy Unknown Verified 11/26/20 20:43 Antibiotics) Iodinated Contrast Media AdvReac Anaphylaxis Verified 11/26/20 20:43 [Iodinated Contrast Media - IV Dye] tape Allergy Mild blisters Uncoded 11/26/20 20:43 skin,peels skin,states "paper tape ok" Review of Systems ROS Statement: Those systems with pertinent positive or pertinent negative responses have been documented in the HPI. ROS Other: All systems not noted in ROS Statement are negative. Past Medical History Past Medical History: Cancer, Chest Pain / Angina, COPD, Eye Disorder, GERD/Reflux, Osteoarthritis (OA), Pneumonia, Vascular Disorder Additional Past Medical History / Comment(s): 09/22/19 EGD with unsuccessful ERCP, 10/07/19 [facility] ERCP with CBD stent-awaiting pathology report, recent early saety/wt loss, 1989 L renal cancer with surgery/has bulge at incisional area, 2006 benign bladder tumor per pt, R iliac artery aneurysm being monitored, arthritis/pain in back/neck and has bilateral leg pain at times, 20% vision in L eye, varicose veins, chronic sinus problems. Pt has fragile skin-all tape causes skin tears. History of Any Multi-Drug Resistant Organisms: None Reported Past Surgical History: Bladder Surgery, Hernia Repair Additional Past Surgical History / Comment(s): 1989 L nephroureterectomy for cancer/couple ribs removed, 2006 TURP/resection bladder tumors, ventral hernia repair, bilateral inguinal hernia repairs, EGDs, colonoscopies, michael rectal abscesses with I&Ds, ERCP 10/07/19 at [facility] with CBD stent placed-awaiting path report. Past Anesthesia/Blood Transfusion Reactions: No Reported Reaction Past Psychological History: No Psychological Hx Reported Smoking Status: Current every day smoker Past Alcohol Use History: None Reported Past Drug Use History: None Reported - Past Family History Mother Family Medical History: No Reported History Additional Family Medical History / Comment(s): at age 93 Father Family Medical History: Vascular Disorder Additional Family Medical History / Comment(s): Father in his 60s from a ruptured abdominal aneurysm General Exam Limitations: no limitations General appearance: alert, in no apparent distress Head exam: Present: atraumatic, normocephalic, normal inspection Eye exam: Present: normal appearance, PERRL, EOMI Pupils: Present: normal accommodation ENT exam: Present: normal exam, normal oropharynx, mucous membranes moist, TM's normal bilaterally, normal external ear exam Neck exam: Present: normal inspection, full ROM. Absent: tenderness Respiratory exam: Present: normal lung sounds bilaterally. Absent: respiratory distress, wheezes, rales, rhonchi, stridor, chest wall tenderness, accessory muscle use Cardiovascular Exam: Present: regular rate, normal rhythm, normal heart sounds. Absent: systolic murmur, diastolic murmur, rubs GI/Abdominal exam: Present: soft. Absent: distended, tenderness Extremities exam: Present: normal inspection, full ROM, normal capillary refill. Absent: tenderness, pedal edema, joint swelling Back exam: Present: normal inspection, full ROM. Absent: tenderness, CVA tenderness (R), CVA tenderness (L) Neurological exam: Present: alert, oriented X3, CN II-XII intact, normal gait Psychiatric exam: Present: normal affect, normal mood Skin exam: Present: warm, dry, intact, normal color Course Vital Signs 11/26/20 11/26/20 11/26/20 20:39 21:30 22:02 Temperature 99.6 F 99.2 F Pulse Rate 90 76 Respiratory 20 22 18 Rate Blood Pressure 101/59 106/83 O2 Sat by Pulse 93 L 95 Oximetry 11/26/20 23:25 Temperature 98.6 F Pulse Rate 72 Respiratory 16 Rate Blood Pressure 105/57 O2 Sat by Pulse 95 Oximetry Medical Decision Making - Medical Decision Making 80-year-old male presents to the emergency department with a chief complaint of cough and congestion. Patient does not appear to be in significant respiratory distress. I did offer him laboratory work and imaging, he declined. Patient is looking for some medication and to be discharged. He did test positive for Covid here. He didn't fit the criteria for monoclonal antibody. He was given the effusion and observed for over an hour. He tolerated well. Will be discharged and advised to quarantine at home. Tylenol or Motrin for pain. Return parameters discussed with patient is stating agreeable. Case discussed with Dr. Pino. - Lab Data Lab Results 11/26/20 Range/Units 20:45 Coronavirus (PCR) Detected A (Not Detectd) Disposition Clinical Impression: COVID-19 Disposition: HOME SELF-CARE Condition: Stable Instructions (If sedation given, give patient instructions): Coronavirus Disease 2019 (COVID-19) Additional Instructions: Please return to the Emergency Department if symptoms worsen or any other concerns. Is patient prescribed a controlled substance at d/c from ED?: No Referrals: Dayday Vieyra DO [Primary Care Provider] - 1-2 days Time of Disposition: 22:49
[2020-11-26] MEDS ORDERED: BAMLANIVIMAB (EUA) 700 MG, ETESEVIMAB (EUA) 1,400 MG in SODIUM CHLORIDE 0.9% 50 ML IVPB ONE (22:00)
[2020-11-26 23:36] VITALS: BP 105/57; PULSE 72; RESP 16; TEMP 98.6
== END 2020-11-26 23:36 | disposition home or self-care (01) ==
LOC: EC 20:37
DX: U07.1 COVID-19 (principal); J44.9 Chronic obstructive pulmonary disease, unspecified; F17.200 Nicotine dependence, unspecified, uncomplicated; Z85.528 Personal history of other malignant neoplasm of kidney; Z79.82 Long term (current) use of aspirin; Z91.040 Latex allergy status; Z91.048 Other nonmedicinal substance allergy status; Z88.0 Allergy status to penicillin; Z88.1 Allergy status to other antibiotic agents; Z88.2 Allergy status to sulfonamides; Z91.09 Other allergy status, other than to drugs and biological substances
CPT/HCPCS: 87635; 71046; 99285; 96365; Q0245

== ENCOUNTER 2021-01-07 17:04 | Observation (INO) | payer MEDICARE ==
[2021-01-07] MEDS ORDERED: SODIUM CHLORIDE 0.9% 1,000 ML IV STA (17:34)
[2021-01-07] MEDS ORDERED: MORPHINE SULFATE 4 MG/ML SYRINGE IV STA (17:34)
[2021-01-07] MEDS ORDERED: ONDANSETRON 4 MG/2 ML VIAL IVP STA (17:34)
[2021-01-07] MEDS ORDERED: FAMOTIDINE 20 MG/2 ML VIAL IV STA (17:36)
--- NOTE | 2021-01-07 17:38 | ED ---
General Adult HPI - General Chief complaint: Abdominal Pain Stated complaint: Abdominal Time Seen by Provider: 01/07/21 17:26 Source: patient, RN notes reviewed Mode of arrival: wheelchair Limitations: no limitations - History of Present Illness Initial comments: Patient is a pleasant 80-year-old male presenting to the emergency Department with complaints of abdominal discomfort. Onset of symptoms was a day or 2 ago. Patient has decreased appetite and nausea. Patient has some mild chronic constipation, unchanged. No diarrhea. No fevers. Patient has chronic back pain that is slightly worse than normal. Abdominal discomfort is mostly epigastric. Patient does have history of previous kidney resection, unclear why. Patient states he also took a rib out with this procedure. - Related Data Home Medications Medication Instructions Recorded Confirmed oxyCODONE-APAP 10-325MG [Percocet 1 tab PO QID PRN 08/01/14 01/07/21 10-325 mg] Docusate [Colace] 100 mg PO DAILY 01/07/21 01/07/21 Multivitamins, Thera [Multivitamin 1 tab PO DAILY 01/07/21 01/07/21 (formulary)] Allergies Allergy/AdvReac Type Severity Reaction Status Date / Time Latex, Natural Rubber Allergy Unknown Red skin Verified 01/07/21 18:14 Penicillins Allergy Unknown Rash/Hives Verified 01/07/21 18:14 adhesive Allergy blisters,tears Verified 01/07/21 18:14 skin Cephalosporins Allergy Rash/Hives Verified 01/07/21 18:14 erythromycin base Allergy Rash/Hives Verified 01/07/21 18:14 Sulfa (Sulfonamide Allergy Unknown Verified 01/07/21 18:14 Antibiotics) Iodinated Contrast Media AdvReac Anaphylaxis Verified 01/07/21 18:14 [Iodinated Contrast Media - IV Dye] tape Allergy Mild blisters Uncoded 01/07/21 17:08 skin,peels skin,states "paper tape ok" Review of Systems ROS Statement: Those systems with pertinent positive or pertinent negative responses have been documented in the HPI. ROS Other: All systems not noted in ROS Statement are negative. Constitutional: Denies: fever Eyes: Denies: eye pain ENT: Denies: ear pain Respiratory: Denies: cough Cardiovascular: Denies: chest pain Endocrine: Denies: fatigue Gastrointestinal: Reports: as per HPI, abdominal pain, nausea. Denies: vomiting, diarrhea Genitourinary: Denies: dysuria Musculoskeletal: Reports: as per HPI Skin: Denies: rash Neurological: Denies: weakness Past Medical History Past Medical History: Cancer, Chest Pain / Angina, COPD, Eye Disorder, GERD/Reflux, Osteoarthritis (OA), Pneumonia, Vascular Disorder Additional Past Medical History / Comment(s): 09/22/19 EGD with unsuccessful ERCP, 10/07/19 [facility] ERCP with CBD stent-awaiting pathology report, recent early saety/wt loss, 1989 L renal cancer with surgery/has bulge at incisional area, 2006 benign bladder tumor per pt, R iliac artery aneurysm being monitored, arthritis/pain in back/neck and has bilateral leg pain at times, 20% vision in L eye, varicose veins, chronic sinus problems. Pt has fragile skin-all tape causes skin tears. History of Any Multi-Drug Resistant Organisms: None Reported Past Surgical History: Bladder Surgery, Hernia Repair Additional Past Surgical History / Comment(s): 1989 L nephroureterectomy for cancer/couple ribs removed, 2006 TURP/resection bladder tumors, ventral hernia repair, bilateral inguinal hernia repairs, EGDs, colonoscopies, michael rectal abscesses with I&Ds, ERCP 10/07/19 at [facility] with CBD stent placed-awaiting path report. Past Anesthesia/Blood Transfusion Reactions: No Reported Reaction Past Psychological History: No Psychological Hx Reported Smoking Status: Current every day smoker Past Alcohol Use History: None Reported Past Drug Use History: None Reported - Past Family History Mother Family Medical History: No Reported History Additional Family Medical History / Comment(s): at age 93 Father Family Medical History: Vascular Disorder Additional Family Medical History / Comment(s): Father in his 60s from a ruptured abdominal aneurysm General Exam Limitations: no limitations General appearance: alert, in no apparent distress Head exam: Present: atraumatic Eye exam: Present: normal appearance Neck exam: Present: normal inspection Respiratory exam: Present: normal lung sounds bilaterally Cardiovascular Exam: Present: regular rate, normal rhythm Expanded Peripheral pulses: 2+: Posterior Tibialis (R), Posterior Tibialis (L) GI/Abdominal exam: Present: soft, tenderness (Moderate epigastric tenderness to palpation). Absent: distended, guarding, rebound, rigid, pulsatile mass Extremities exam: Present: normal inspection Neurological exam: Present: alert Psychiatric exam: Present: normal affect, normal mood Skin exam: Present: normal color Course Vital Signs 01/07/21 17:06 Temperature 97.6 F Pulse Rate 67 Respiratory 18 Rate Blood Pressure 128/72 O2 Sat by Pulse 97 Oximetry EKG Findings - EKG Comments: EKG Findings:: Normal sinus rhythm with rate of 60. [place] 134. QRS 78. QT 424. QTC 420. Right axis. Normal QRS. No acute ST change. Medical Decision Making - Medical Decision Making Patient evaluated and resting comfortably in bed. Patient still complaining of discomfort and will be provided further medication. Dr. Ordoñez has been paged for admission, [facility] Bryant. Dr. Nam will be placed on consult was. Cc the patient. - Lab Data Result diagrams: 01/07/21 18:07 01/07/21 18:07 Lab Results 01/07/21 01/07/21 01/07/21 Range/Units 18:07 18:07 18:07 WBC 9.0 (3.8-10.6) k/uL RBC 4.62 (4.30-5.90) m/uL Hgb 14.8 (13.0-17.5) gm/dL Hct 44.0 (39.0-53.0) % MCV 95.1 (80.0-100.0) fL MCH 32.1 (25.0-35.0) pg MCHC 33.7 (31.0-37.0) g/dL RDW 14.6 (11.5-15.5) % Plt Count 208 (150-450) k/uL MPV 9.4 Neutrophils % 86 % Lymphocytes % 9 % Monocytes % 4 % Eosinophils % 1 % Basophils % 0 % Neutrophils # 7.8 H (1.3-7.7) k/uL Lymphocytes # 0.8 L (1.0-4.8) k/uL Monocytes # 0.3 (0-1.0) k/uL Eosinophils # 0.1 (0-0.7) k/uL Basophils # 0.0 (0-0.2) k/uL PT 9.7 (9.0-12.0) sec INR 0.9 (<1.2) APTT 25.6 (22.0-30.0) sec Sodium 140 (137-145) mmol/L Potassium 4.2 (3.5-5.1) mmol/L Chloride 102 (98-107) mmol/L Carbon Dioxide 32 H (22-30) mmol/L Anion Gap 6 mmol/L BUN 24 H (9-20) mg/dL Creatinine 0.98 (0.66-1.25) mg/dL Est GFR (CKD-EPI)AfAm 85 (>60 ml/min/1.73 sqM) Est GFR (CKD-EPI)NonAf 74 (>60 ml/min/1.73 sqM) Glucose 125 H (74-99) mg/dL Calcium 9.5 (8.4-10.2) mg/dL Total Bilirubin 0.6 (0.2-1.3) mg/dL AST 23 (17-59) U/L ALT 10 (4-49) U/L Alkaline Phosphatase 112 (38-126) U/L Troponin I (0.000-0.034) ng/mL Total Protein 7.7 (6.3-8.2) g/dL Albumin 4.2 (3.5-5.0) g/dL Amylase 65 (30-110) U/L Lipase 29 (23-300) U/L // Range/Units 18:07 WBC (3.8-10.6) k/uL RBC (4.30-5.90) m/uL Hgb (13.0-17.5) gm/dL Hct (39.0-53.0) % MCV (80.0-100.0) fL MCH (25.0-35.0) pg MCHC (31.0-37.0) g/dL RDW (11.5-15.5) % Plt Count (150-450) k/uL MPV Neutrophils % % Lymphocytes % % Monocytes % % Eosinophils % % Basophils % % Neutrophils # (1.3-7.7) k/uL Lymphocytes # (1.0-4.8) k/uL Monocytes # (0-1.0) k/uL Eosinophils # (0-0.7) k/uL Basophils # (0-0.2) k/uL PT (9.0-12.0) sec INR (<1.2) APTT (22.0-30.0) sec Sodium (137-145) mmol/L Potassium (3.5-5.1) mmol/L Chloride (98-107) mmol/L Carbon Dioxide (22-30) mmol/L Anion Gap mmol/L BUN (9-20) mg/dL Creatinine (0.66-1.25) mg/dL Est GFR (CKD-EPI)AfAm (>60 ml/min/1.73 sqM) Est GFR (CKD-EPI)NonAf (>60 ml/min/1.73 sqM) Glucose (74-99) mg/dL Calcium (8.4-10.2) mg/dL Total Bilirubin (0.2-1.3) mg/dL AST (17-59) U/L ALT (4-49) U/L Alkaline Phosphatase (38-126) U/L Troponin I <0.012 (0.000-0.034) ng/mL Total Protein (6.3-8.2) g/dL Albumin (3.5-5.0) g/dL Amylase (30-110) U/L Lipase (23-300) U/L - Radiology Data Radiology results: report reviewed (Computed tomography scan abdomen and pelvis does show mild ascites. Gallbladder wall thickening.) Disposition Clinical Impression: Abdominal pain Disposition: ADMITTED IP TO THIS HOSP Is patient prescribed a controlled substance at d/c from ED?: No Referrals: Dayday Vieyra DO [Primary Care Provider] - 1-2 days Decision Time: 20:15
[2021-01-07 18:16] LABS: Basophils % (A) 0 %; Eosinophils # (A) 0.1 k/uL (0-0.7); Eosinophils % (A) 1 %; HGB 14.8 gm/dL (13.0-17.5); Lymphocytes # (A) 0.8 k/uL (1.0-4.8); Lymphocytes % (A) 9 %; MCH 32.1 pg (25.0-35.0); MCHC 33.7 g/dL (31.0-37.0); MCV 95.1 fL (80.0-100.0); Mean Platelet Volume 9.4; Monocytes # (A) 0.3 k/uL (0-1.0); Monocytes % (A) 4 %; Neutrophils # (A) 7.8 k/uL (1.3-7.7); Neutrophils % (A) 86 %; Platelet Count 208 k/uL (150-450); RBC 4.62 m/uL (4.30-5.90); RDW 14.6 % (11.5-15.5)
[2021-01-07 18:24] LABS: Albumin 4.2 g/dL (3.5-5.0); Calcium 9.5 mg/dL (8.4-10.2); Potassium 4.2 mmol/L (3.5-5.1); Total Bilirubin 0.6 mg/dL (0.2-1.3); Total Protein 7.7 g/dL (6.3-8.2)
[2021-01-07] MEDS ORDERED: HYDROmorphone 1 MG/ML 1 ML SYRINGE IVP STA ×2 (18:26→20:00)
[2021-01-07 18:32] LABS: INR 0.9 (<1.2); Partial Thromboplastin Time 25.6 sec (22.0-30.0); Prothrombin Time 9.7 sec (9.0-12.0)
[2021-01-07] MEDS ORDERED: diphenhydrAMINE 50 MG/ML 1 ML VIAL IVP STA (18:35)
[2021-01-07] MEDS ORDERED: methylPREDNISolone SOD SUCCI 125 MG/2 ML VIAL IV STA (18:35)
--- NOTE | 2021-01-07 19:37 | CT ---
EXAMINATION TYPE: CT abdomen pelvis w con DATE OF EXAM: 01/07/2021 COMPARISON: October 13, 2019 HISTORY: Abdominal pain. CT DLP: 737.9 mGycm Automated exposure control for dose reduction was used. CONTRAST: Performed with IV Contrast, patient injected with 100ml mL of Isovue 300. Images obtained from the diaphragm to the floor the pelvis with IV contrast. Lung bases show some mild atelectasis posteriorly. Heart size is normal. There is no pericardial effu georgina. Liver spleen stomach pancreas appear intact. The bile ducts show mild ectasia. There is minimal gallb ladder wall thickening. Gallbladder measures 4.3 cm. The common bile duct measures 12 mm. There is no adrenal mass. There are clips apparently from left nephrectomy. Right kidney show satisfa ctory contrast opacification. There is no hydronephrosis. Ureter is not dilated. There is no retroper itoneal adenopathy. There is some free fluid in the pelvis. Bladder distends smoothly. There is no ev idence of a pelvic mass. There is no mesenteric edema. There is small amount of ascites fluid in the paracolic gutters. Abdominal aorta is atheromatous. The lumbar vertebra show a degenerative mild subluxation at L4-5. There is no compression fracture. T he bony pelvis is intact. The hip joints are intact. There is no hip dysplasia. IMPRESSION: Minimal gallbladder wall thickening. Mild ectasia of the biliary tree. This could relate to chronic g allbladder dysfunction. There is clearing of the air in the anterior biliary tree compared to old exa m. There is mild abdominal ascites which appears new compared to old exam. No bowel obstruction.
[2021-01-07] MEDS ORDERED: ONDANSETRON 4 MG/2 ML VIAL IVP PRN (20:15)
[2021-01-07] MEDS ORDERED: ACETAMINOPHEN TAB 325 MG TAB PO PRN (20:15)
[2021-01-07] MEDS ORDERED: NALOXONE 0.4 MG/ML 1 ML VIAL IV PRN (20:15)
[2021-01-07] MEDS: HYDROmorphone 1 MG/ML 1 ML SYRINGE IVP PRN (22:18)
[2021-01-07] MEDS: SODIUM CHLORIDE 0.9% 1,000 ML IV SCH (22:58)
[2021-01-07 23:31] LABS: Appearance,Urine Clear (Clear); Bilirubin,Urine Negative (Negative); Blood,Urine Negative (Negative); Color,Urine Yellow; Glucose,Urine (UA) Negative (Negative); Ketones,Urine 1+ (Negative); Leukocyte Esterase,Urine Negative (Negative); Nitrite,Urine Negative (Negative); PH, Urine 5.5 (5.0-8.0); Protein,Urine Trace (Negative); Urobilinogen,Urine <2.0 mg/dL (<2.0)
[2021-01-07 23:45] LABS: Specific Gravity,Urine >1.050 (1.001-1.035)
[2021-01-08] MEDS: HYDROmorphone 1 MG/ML 1 ML SYRINGE IVP PRN ×6 (01:39→21:21)
[2021-01-08] MEDS: SODIUM CHLORIDE 0.9% 1,000 ML IV SCH ×2 (05:24→17:53)
[2021-01-08 09:13] LABS: Basophils # (A) 0 X 10*3/uL (0.00-0.10); Basophils % (A) 0 %; Eosinophils # (A) 0 X 10*3/uL (0.04-0.35); Eosinophils % (A) 0 %; HCT 39.3 % (39.6-50.0); HGB 12.7 g/dL (13.0-17.0); Lymphocytes # (A) 0.62 X 10*3/uL (0.90-5.00); Lymphocytes % (A) 11.7 %; MCH 31.2 pg (27.0-32.0); MCHC 32.3 g/dL (32.0-37.0); MCV 96.6 fL (80.0-97.0); Mean Platelet Volume 12.2 fL (9.5-12.2); Monocytes # (A) 0.07 X 10*3/uL (0.20-1.00); Monocytes % (A) 1.3 %; Neutrophils # (A) 4.61 X 10*3/uL (1.80-7.70); Neutrophils % (A) 86.6 %; Platelet Count 183 X 10*3/uL (140-440); RBC 4.07 X 10*6/uL (4.40-5.60); WBC 5.32 X 10*3/uL (4.50-10.00)
[2021-01-08] MEDS: PANTOPRAZOLE 40 MG/10 ML VIAL IV SCH (09:16)
[2021-01-08 10:08] LABS: African American GFR (CKD) 98.5 (60.0-200.0); Albumin 3.1 g/dL (3.80-4.90); Albumin/Globulin Ratio 1.19 (1.60-3.17); BUN/Creat Ratio 28.75 Ratio (12.00-20.00); Calcium 8.3 mg/dL (8.7-10.3); Globulin 2.6 g/dL (1.6-3.3); Potassium 4.7 mmol/L (3.5-5.5); Total Bilirubin 0.5 mg/dL (0.2-1.2); Total Protein 5.7 g/dL (6.2-8.2)
--- NOTE | 2021-01-08 10:11 | P.GSCN ---
History of Present Illness Consult date: 01/08/21 Reason for Consult: Abdominal pain History of present illness: 80-year-old male presents with a three-day history of abdominal pain. Pain is m ostly in the upper abdomen does radiate to the left upper quadrant. Had a previous left nephrectomy where he had multiple ribs removed at that time as well. Patient denies vomiting and JOSEPH he denied nausea however in the ER he was describing nausea. He has a diminished appetite. He does have a history of chronic constipation which is not changed. No fevers. Labs are normal. CAT scan was performed. The patient has a somewhat unusual appearance to his bowel in the left upper quadrant however looking back at the CAT scan from October of last year this is similar in appearance. At this time there is some edema present in the mesentery of the may be slightly more than last CAT scan. No e vidence of obstruction however. Patient is sitting up in bed and appears comfortable. Review of Systems The patient denies any acute changes in vision or hearing, no dysphagia or odynophagia, no chest pain or shortness of breath, no dysuria or hematuria, no headache, no runny nose, no rectal bleeding or melena, no unexplained weight loss Past Medical History Past Medical History: Cancer, Chest Pain / Angina, COPD, Eye Disorder, GERD/Reflux, Osteoarthritis (OA), Pneumonia, Vascular Disorder Additional Past Medical History / Comment(s): 09/22/19 EGD with unsuccessful ERCP, 10/07/19 [facility] ERCP with CBD stent-awaiting pathology report, recent early saety/wt loss, 1989 L renal cancer with surgery/has bulge at incisional area, 2006 benign bladder tumor per pt, R iliac artery aneurysm being monitored, art hritis/pain in back/neck and has bilateral leg pain at times, 20% vision in L eye, varicose veins, chronic sinus problems. Pt has fragile skin-all tape causes skin tears. History of Any Multi-Drug Resistant Organisms: None Reported Past Surgical History: Bladder Surgery, Hernia Repair Additional Past Surgical History / Comment(s): 1989 L nephroureterectomy for cancer/couple ribs removed, 2006 TURP/resection bladder tumors, ventral hernia repair, bilateral inguinal hernia repairs, EGDs, colonoscopies, michael rectal abscesses with I&Ds, ERCP 10/07/19 at [facility] with CBD stent placed-awaiting path report. Past Anesthesia/Blood Transfusion Reactions: No Reported Reaction Past Psychological History: No Psychological Hx Reported Additional Psychological History / Comment(s): Pt resides with his spouse and son. He has a nebulizer. He drives. Smoking Status: Current every day smoker Past Alcohol Use History: None Reported Additional Past Alcohol Use History / Comment(s): SMOKES 1/2 PPD , HX OF 1PPD, STARTED SMOKING AGE 15. Past Drug Use History: None Reported - Past Family History Mother Family Medical History: No Reported History Additional Family Medical History / Comment(s): at age 93 Father Family Medical History: Vascular Disorder Additional Family Medical History / Comment(s): Father in his 60s from a ruptured abdominal aneurysm Medications and Allergies Home Medications Medication Instructions Recorded Confirmed Type oxyCODONE-APAP 10-325MG [Percocet 1 tab PO QID PRN 08/01/14 01/07/21 History 10-325 mg] Docusate [Colace] 100 mg PO DAILY 01/07/21 01/07/21 History Multivitamins, Thera [Multivitamin 1 tab PO DAILY 01/07/21 01/07/21 History (formulary)] Allergies Allergy/AdvReac Type Severity Reaction Status Date / Time Latex, Natural Rubber Allergy Unknown Red skin Verified 01/07/21 18:14 Penicillins Allergy Unknown Rash/Hives Verified 01/07/21 18:14 adhesive Allergy blisters,tears Verified 01/07/21 18:14 skin Cephalosporins Allergy Rash/Hives Verified 01/07/21 18:14 erythromycin base Allergy Rash/Hives Verified 01/07/21 18:14 Sulfa (Sulfonamide Allergy Unknown Verified 01/07/21 18:14 Antibiotics) Iodinated Contrast Media AdvReac Anaphylaxis Verified 01/07/21 18:14 [Iodinated Contrast Media - IV Dye] tape Allergy Mild blisters Uncoded 01/07/21 17:08 skin,peels skin,states "paper tape ok" Surgical - Exam Vital Signs Temp Pulse Resp BP Pulse Ox 97.6 F 67 18 128/72 97 01/07/21 17:06 01/07/21 17:06 01/07/21 17:06 01/07/21 17:06 01/07/21 17:06 Physical exam: General: Well-developed, well-nourished HEENT: Normocephalic, sclerae nonicteric Abdomen: Minimal if any left upper quadrant tenderness, previous scars noted, nondistended Extremities: No edema Neuro: Alert and oriented Results - Labs 01/08/21 05:55 01/07/21 18:07 Abnormal Lab Results - Last 24 Hours (Table) 01/07/21 01/07/21 01/07/21 Range/Units 18:07 18:07 23:00 RBC (4.40-5.60) X 10*6/uL Hgb (13.0-17.0) g/dL Hct (39.6-50.0) % RDW (11.5-14.5) % Neutrophils # 7.8 H (1.3-7.7) k/uL Lymphocytes # 0.8 L (1.0-4.8) k/uL Monocytes # (0.20-1.00) X 10*3/uL Eosinophils # (0.04-0.35) X 10*3/uL Carbon Dioxide 32 H (22-30) mmol/L BUN 24 H (9-20) mg/dL Glucose 125 H (74-99) mg/dL Ur Specific [place] >1.050 H (1.001-1.035) Urine Protein Trace H (Negative) Urine Ketones 1+ H (Negative) 01/08/21 Range/Units 05:55 RBC 4.07 L (4.40-5.60) X 10*6/uL Hgb 12.7 L (13.0-17.0) g/dL Hct 39.3 L (39.6-50.0) % RDW 15.0 H (11.5-14.5) % Neutrophils # (1.3-7.7) k/uL Lymphocytes # 0.62 L (1.0-4.8) k/uL Monocytes # 0.07 L (0.20-1.00) X 10*3/uL Eosinophils # 0 L (0.04-0.35) X 10*3/uL Carbon Dioxide (22-30) mmol/L BUN (9-20) mg/dL Glucose (74-99) mg/dL Ur Specific [place] (1.001-1.035) Urine Protein (Negative) Urine Ketones (Negative) Diabetes panel 01/07/21 Range/Units 18:07 Sodium 140 (137-145) mmol/L Potassium 4.2 (3.5-5.1) mmol/L Chloride 102 (98-107) mmol/L Carbon Dioxide 32 H (22-30) mmol/L BUN 24 H (9-20) mg/dL Creatinine 0.98 (0.66-1.25) mg/dL Glucose 125 H (74-99) mg/dL Calcium 9.5 (8.4-10.2) mg/dL AST 23 (17-59) U/L ALT 10 (4-49) U/L Alkaline Phosphatase 112 (38-126) U/L Total Protein 7.7 (6.3-8.2) g/dL Albumin 4.2 (3.5-5.0) g/dL Calcium panel 01/07/21 Range/Units 18:07 Calcium 9.5 (8.4-10.2) mg/dL Albumin 4.2 (3.5-5.0) g/dL Pituitary panel 01/07/21 Range/Units 18:07 Sodium 140 (137-145) mmol/L Potassium 4.2 (3.5-5.1) mmol/L Chloride 102 (98-107) mmol/L Carbon Dioxide 32 H (22-30) mmol/L BUN 24 H (9-20) mg/dL Creatinine 0.98 (0.66-1.25) mg/dL Glucose 125 H (74-99) mg/dL Calcium 9.5 (8.4-10.2) mg/dL Adrenal panel 01/07/21 Range/Units 18:07 Sodium 140 (137-145) mmol/L Potassium 4.2 (3.5-5.1) mmol/L Chloride 102 (98-107) mmol/L Carbon Dioxide 32 H (22-30) mmol/L BUN 24 H (9-20) mg/dL Creatinine 0.98 (0.66-1.25) mg/dL Glucose 125 H (74-99) mg/dL Calcium 9.5 (8.4-10.2) mg/dL Total Bilirubin 0.6 (0.2-1.3) mg/dL AST 23 (17-59) U/L ALT 10 (4-49) U/L Alkaline Phosphatase 112 (38-126) U/L Total Protein 7.7 (6.3-8.2) g/dL Albumin 4.2 (3.5-5.0) g/dL Assessment and Plan (1) Abdominal pain Narrative/Plan: 80-year-old male with left upper quadrant pain. CAT scan findings reviewed with radiology today. Begin clear liquids. If pain were to persist or increase laparoscopy to evaluate small bowel loops left upper quadrant pain be required. Current Visit: Yes Status: Acute Code(s): R10.9 - UNSPECIFIED ABDOMINAL PAIN SNOMED Code(s): 47116007
[2021-01-09] MEDS: HYDROmorphone 1 MG/ML 1 ML SYRINGE IVP PRN ×4 (01:16→17:46)
[2021-01-09] MEDS: SODIUM CHLORIDE 0.9% 1,000 ML IV SCH ×2 (01:16→13:25)
[2021-01-09] MEDS: PANTOPRAZOLE 40 MG/10 ML VIAL IV SCH (07:55)
--- NOTE | 2021-01-09 10:04 | P.HPIM ---
History of Present Illness H&P Date: 01/08/21 Chief Complaint: Abdominal pain 80-year-old male presents with a three-day history of abdominal pain. Pain is mostly in the upper abdomen does radiate to the left upper quadrant. Had a previous left nephrectomy where he had multiple ribs removed at that time as well. Patient denies vomiting and JOSEPH he denied nausea however in the ER he was describing nausea. He has a diminished appetite. He does have a history of chronic constipation which is not changed. No fevers. Labs are normal. CAT scan was performed. The patient has a somewhat unusual appearance to his bowel in the left upper quadrant however looking back at the CAT scan from October of last year this is similar in appearance. At this time there is some edema present in the mesentery of the may be slightly more than last CAT scan. Workup in ED reveals slight elevation in BUN at 24, glucose 125; rest of blood work is unremarkable; Computed tomography scan abdomen and pelvis does show mild ascites; Gallbladder wall thickening Patient is admitted to the hospital for observation and further evaluation by surgical service Review of Systems REVIEW OF SYSTEMS: CONSTITUTIONAL: No fever, no malaise, no fatigue. HEENT: No recent visual problems or hearing problems. Denied any sore throat. CARDIOVASCULAR: No chest pain, orthopnea, PND, no palpitations, no syncope. PULMONARY: No shortness of breath, no cough, no hemoptysis. GASTROINTESTINAL: No diarrhea, no nausea, no vomiting, no abdominal pain. NEUROLOGICAL: No headaches, no weakness, no numbness. HEMATOLOGICAL: Denies any bleeding or petechiae. GENITOURINARY: Denies any burning micturition, frequency, or urgency. MUSCULOSKELETAL/RHEUMATOLOGICAL: Denies any joint pain, swelling, or any muscle pain. ENDOCRINE: Denies any polyuria or polydipsia. The rest of the 14-point review of systems is negative. 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 Pt has fragile skin-all tape causes skin tears. History of Any Multi-Drug Resistant Organisms: None Reported Past Surgical History: Bladder Surgery, Hernia Repair Additional Past Surgical History / Comment(s): 1989 nephroureterectomy for cancer/couple ribs removed, 2006 TURP/resection bladder tumors, ventral hernia repair, bilateral inguinal hernia repairs, EGDs, colonoscopies, michael rectal abscesses with I&Ds, ERCP 10/07/19 at [facility] with CBD stent placed-awaiting path report. Past Anesthesia/Blood Transfusion Reactions: No Reported Reaction Past Psychological History: No Psychological Hx Reported Additional Psychological History / Comment(s): Pt resides with his spouse and son. He has a nebulizer. He drives. Smoking Status: Current every day smoker Past Alcohol Use History: None Reported Additional Past Alcohol Use History / Comment(s): SMOKES 1/2 PPD , HX OF 1PPD, STARTED SMOKING AGE 15. Past Drug Use History: None Reported - Past Family History Mother Family Medical History: No Reported History Additional Family Medical History / Comment(s): at age 93 Father Family Medical History: Vascular Disorder Additional Family Medical History / Comment(s): Father in his 60s from a ruptured abdominal aneurysm Medications and Allergies Home Medications Medication Instructions Recorded Confirmed Type oxyCODONE-APAP 10-325MG [Percocet 1 tab PO QID PRN 08/01/14 01/07/21 History 10-325 mg] Docusate [Colace] 100 mg PO DAILY 01/07/21 01/07/21 History Multivitamins, Thera [Multivitamin 1 tab PO DAILY 01/07/21 01/07/21 History (formulary)] Allergies Allergy/AdvReac Type Severity Reaction Status Date / Time Latex, Natural Rubber Allergy Unknown Red skin Verified 01/07/21 18:14 Penicillins Allergy Unknown Rash/Hives Verified 01/07/21 18:14 adhesive Allergy blisters,tears Verified 01/07/21 18:14 skin Cephalosporins Allergy Rash/Hives Verified 01/07/21 18:14 erythromycin base Allergy Rash/Hives Verified 01/07/21 18:14 Sulfa (Sulfonamide Allergy Unknown Verified 01/07/21 18:14 Antibiotics) Iodinated Contrast Media AdvReac Anaphylaxis Verified 01/07/21 18:14 [Iodinated Contrast Media - IV Dye] tape Allergy Mild blisters Uncoded 01/07/21 17:08 skin,peels skin,states "paper tape ok" Physical Exam Vitals: Vital Signs Temp Pulse Pulse Resp BP BP Pulse Ox 01/08/21 07:15 98.1 F 53 L 18 109/49 95 01/08/21 01:44 98.3 F 53 L 16 140/76 96 01/07/21 22:36 98.9 F 57 L 16 132/71 96 01/07/21 22:11 65 16 118/68 98 01/07/21 17:06 97.6 F 67 18 128/72 97 Intake and Output 01/07/21 01/08/21 01/08/21 22:59 06:59 14:59 Intake Total 240 Balance 240 Intake: Oral 240 Other: # Voids 1 Weight 58.967 kg General appearance: alert, in no apparent distress Head exam: Present: atraumatic Eye exam: Present: normal appearance Neck exam: Present: normal inspection Respiratory exam: Present: normal lung sounds bilaterally Cardiovascular Exam: Present: regular rate, normal rhythm Peripheral pulses: 2+: Posterior Tibialis (R), Posterior Tibialis (L) GI/Abdominal exam: Present: soft, tenderness (Moderate epigastric tenderness to palpation). Absent: distended, guarding, rebound, rigid, pulsatile mass Extremities exam: Present: normal inspection Neurological exam: Present: alert Psychiatric exam: Present: normal affect, normal mood Skin exam: Present: normal color Results CBC & Chem 7: 01/08/21 05:55 01/08/21 05:55 Labs: Abnormal Lab Results - Last 24 Hours (Table) 01/07/21 01/07/21 01/07/21 Range/Units 18:07 18:07 23:00 RBC (4.40-5.60) X 10*6/uL Hgb (13.0-17.0) g/dL Hct (39.6-50.0) % RDW (11.5-14.5) % Neutrophils # 7.8 H (1.3-7.7) k/uL Lymphocytes # 0.8 L (1.0-4.8) k/uL Monocytes # (0.20-1.00) X 10*3/uL Eosinophils # (0.04-0.35) X 10*3/uL Carbon Dioxide 32 H (22-30) mmol/L BUN 24 H (9-20) mg/dL BUN/Creatinine Ratio (12.00-20.00) Ratio Glucose 125 H (74-99) mg/dL Calcium (8.7-10.3) mg/dL Total Protein (6.2-8.2) g/dL Albumin (3.80-4.90) g/dL Albumin/Globulin Ratio (1.60-3.17) g/dL Ur Specific [place] >1.050 H (1.001-1.035) Urine Protein Trace H (Negative) Urine Ketones 1+ H (Negative) 01/08/21 01/08/21 Range/Units 05:55 05:55 RBC 4.07 L (4.40-5.60) X 10*6/uL Hgb 12.7 L (13.0-17.0) g/dL Hct 39.3 L (39.6-50.0) % RDW 15.0 H (11.5-14.5) % Neutrophils # (1.3-7.7) k/uL Lymphocytes # 0.62 L (1.0-4.8) k/uL Monocytes # 0.07 L (0.20-1.00) X 10*3/uL Eosinophils # 0 L (0.04-0.35) X 10*3/uL Carbon Dioxide (22-30) mmol/L BUN (9-20) mg/dL BUN/Creatinine Ratio 28.75 H (12.00-20.00) Ratio Glucose 111 H (74-99) mg/dL Calcium 8.3 L (8.7-10.3) mg/dL Total Protein 5.7 L (6.2-8.2) g/dL Albumin 3.10 L (3.80-4.90) g/dL Albumin/Globulin Ratio 1.19 L (1.60-3.17) g/dL Ur Specific [place] (1.001-1.035) Urine Protein (Negative) Urine Ketones (Negative) Thrombosis Risk Factor Assmnt - Choose All That Apply Each Factor Represents 1 point: Abnormal pulmonary function (COPD), Varicose veins Each Risk Factor Represents 3 Points: Age 75 years or older Thrombosis Risk Factor Assessment Total Risk Factor Score: 5 Thrombosis Risk Factor Assessment Level: High Risk Assessment and Plan Assessment: 1. Intractable abdominal pain - CT of abdomen done in ED reveals mild ascites along with some gallbladder wall thickening - Patient is planned to be admitted to the hospital; keep patient nothing by mouth; IV fluid hydration; consult surgery for further recommendations - Start patient on Protonix 40 mg IV daily - Surgery on board and recommending to start patient on clear liquid diet with plans to advance as tolerated; planning laparoscopy to evaluate small bowel loops if left upper corner pain persists 2. Mild renal injury; we'll start patient on IV fluids in form of normal saline; monitor strict SRI's, daily weights, renal function and electrolytes; avoid nephrotoxic agents and hypotension 3. Constipation; continue with home dose of Colace 100 mg at bedtime 4. Gastroesophageal reflux disease/gastritis; IV Protonix as indicated above 5. COPD; not in exacerbation; patient currently not on any inhaler therapy; saturating above 95% on room air DVT prophylaxis; SCDs/early ambulation CODE STATUS; full code
--- NOTE | 2021-01-09 10:26 | P.PN ---
Subjective Progress Note Date: 01/09/21 Principal diagnosis: Abdominal pain Patient says he is doing better today. His abdominal pain he says is gone and he is only dealing with his chronic back pain at this time. He is tolerating clear liquids. Objective - Vital Signs Vital signs: Vital Signs Temp 98.7 F 01/09/21 07:29 Pulse 49 L 01/09/21 07:29 Resp 16 01/09/21 07:29 BP 123/64 01/09/21 07:29 Pulse Ox 95 01/09/21 07:29 Intake & Output 01/08/21 01/09/21 01/09/21 18:59 06:59 18:59 Intake Total 100 Output Total 400 1700 Balance -400 -1600 Intake: Oral 100 Output: Urine 400 1700 Other: Voiding Method Urinal # Voids 2 - Exam Abdomen: Soft, mild epigastric and left upper quadrant tenderness. Patient states this is always there and he wears a binder for that reason. - Labs CBC & Chem 7: 01/08/21 05:55 01/08/21 05:55 Assessment and Plan (1) Abdominal pain Narrative/Plan: Patient is clinically improved. Advance diet. Will follow. Current Visit: Yes Status: Acute Code(s): R10.9 - UNSPECIFIED ABDOMINAL PAIN SNOMED Code(s): 36405340
[2021-01-09 11:31] LABS: African American GFR (CKD) >90 (>60 ml/min/1.73 sqM); Anion Gap 1 mmol/L; Blood Urea Nitrogen 15 mg/dL (9-20); Calcium 8.3 mg/dL (8.4-10.2); Carbon Dioxide 31 mmol/L (22-30); Chloride 107 mmol/L (98-107); Glucose 80 mg/dL (74-99); Non-African American GFR(CKD) 80 (>60 ml/min/1.73 sqM); Potassium 4.3 mmol/L (3.5-5.1); Sodium 139 mmol/L (137-145)
[2021-01-09] MEDS ORDERED: MAGNESIUM HYDROXIDE 2,400 MG/10 ML CUP PO PRN (13:25)
[2021-01-09] MEDS: oxyCODONE-APAP 10-325MG 1 EACH TAB PO PRN ×2 (13:30→22:30)
--- NOTE | 2021-01-09 20:45 | P.PN ---
Subjective Progress Note Date: 01/09/21 80-year-old male presents with a three-day history of abdominal pain. Pain is mostly in the upper abdomen does radiate to the left upper quadrant. Had a previous left nephrectomy where he had multiple ribs removed at that time as well. Patient denies vomiting and JOSEPH he denied nausea however in the ER he was describing nausea. He has a diminished appetite. He does have a history of chronic constipation which is not changed. No fevers. Labs are normal. CAT scan was performed. The patient has a somewhat unusual appearance to his bowel in the left upper quadrant however looking back at the CAT scan from October of last year this is similar in appearance. At this time there is some edema pres ent in the mesentery of the may be slightly more than last CAT scan. Workup in ED reveals slight elevation in BUN at 24, glucose 125; rest of blood work is unremarkable; Computed tomography scan abdomen and pelvis does show mild ascites; Gallbladder wall thickening Patient is admitted to the hospital for observation and further evaluation by surgical service 01/09/2021 Patient is seen and evaluated in follow-up and discussed with nursing staff; reports improvement in abdominal pain; complains of constipation Vital signs are reviewed with a temperature of 98.7, pulse 49, respirations 16 and blood pressure 123/64 with SpO2 of 95% on room air Surgery on board and patient has been started on a clear liquid diet which she is tolerating well; we plan to advance diet as tolerated; surgery recommending possible laparoscopic evaluation if patient continues to complain of abdominal pain Remains constipated; patient is given milk of magnesia 2400 mg 1 and we will start patient on Colace 100 mg daily Objective - Vital Signs Vital signs: Vital Signs Temp 98.4 F 01/09/21 14:04 Pulse 96 01/09/21 14:04 Resp 16 01/09/21 14:04 BP 128/68 01/09/21 14:04 Pulse Ox 97 01/09/21 14:04 Intake & Output 01/08/21 01/09/21 01/09/21 18:59 06:59 18:59 Intake Total 100 480 Output Total 400 1700 600 Balance -400 -1600 -120 Intake: Oral 100 480 Output: Urine 400 1700 600 Other: Voiding Method Urinal # Voids 2 3 # Bowel Movements 1 - Exam - Constitutional General appearance: Present: average body habitus, cooperative, no acute distress - EENT Eyes: Present: anicteric sclerae, EOMI, PERRLA, normal appearance ENT: Present: hearing grossly normal, normal oropharynx Ears: bilateral: normal - Neck Neck: Present: normal ROM. Absent: lymphadenopathy, rigidity, thyromegaly Carotids: negative: bruit present Thyroid: bilateral: normal size, negative: enlarged, nodule - Respiratory Respiratory: bilateral: CTA, negative: rales, rhonchi, wheezing - Cardiovascular Rhythm: regular Heart sounds: normal: S1, S2 Abnormal Heart Sounds: Absent: systolic murmur, diastolic murmur - Gastrointestinal General gastrointestinal: Present: normal bowel sounds, soft. Absent: distended, organomegaly, tenderness - Genitourinary Genitourinary Comment(s): deferred - Integumentary Integumentary: Present: normal turgor. Absent: jaundiced, rash, ulcer - Neurologic Neurologic: Present: CNII-XII intact. Absent: focal deficits - Musculoskeletal Musculoskeletal: Present: gait normal, strength equal bilaterally - Psychiatric Psychiatric: Present: A&O x's 3, appropriate affect, intact judgment & insight - Labs CBC & Chem 7: 01/08/21 05:55 01/09/21 10:20 Labs: Abnormal Lab Results - Last 24 Hours (Table) 01/09/21 Range/Units 10:20 Carbon Dioxide 31 H (22-30) mmol/L Calcium 8.3 L (8.4-10.2) mg/dL Assessment and Plan Assessment: 1. Intractable abdominal pain - CT of abdomen done in ED reveals mild ascites along with some gallbladder wall thickening - Patient is planned to be admitted to the hospital; keep patient nothing by mouth; IV fluid hydration; consult surgery for further recommendations - Start patient on Protonix 40 mg IV daily - Surgery on board and recommending to start patient on clear liquid diet with plans to advance as tolerated; planning laparoscopy to evaluate small bowel loops if left upper corner pain persists 2. Mild renal injury; we'll start patient on IV fluids in form of normal saline; monitor strict SRI's, daily weights, renal function and electrolytes; avoid nephrotoxic agents and hypotension 3. Constipation; continue with home dose of Colace 100 mg at bedtime 4. Gastroesophageal reflux disease/gastritis; IV Protonix as indicated above 5. COPD; not in exacerbation; patient currently not on any inhaler therapy; saturating above 95% on room air DVT prophylaxis; SCDs/early ambulation CODE STATUS; full code
[2021-01-10] MEDS: SODIUM CHLORIDE 0.9% 1,000 ML IV SCH ×3 (00:30→19:28)
[2021-01-10] MEDS: oxyCODONE-APAP 10-325MG 1 EACH TAB PO PRN ×2 (07:41→20:30)
[2021-01-10] MEDS: DOCUSATE 100 MG CAP PO SCH (07:41)
[2021-01-10] MEDS: PANTOPRAZOLE 40 MG/10 ML VIAL IV SCH (07:41)
[2021-01-10 09:24] LABS: Basophils # (A) 0.03 X 10*3/uL (0.00-0.10); Basophils % (A) 0.5 %; Eosinophils # (A) 0.13 X 10*3/uL (0.04-0.35); Eosinophils % (A) 2.1 %; HCT 40.7 % (39.6-50.0); HGB 13.3 g/dL (13.0-17.0); Lymphocytes % (A) 24.3 %; MCH 31.2 pg (27.0-32.0); MCHC 32.7 g/dL (32.0-37.0); MCV 95.5 fL (80.0-97.0); Mean Platelet Volume 11.5 fL (9.5-12.2); Monocytes # (A) 0.38 X 10*3/uL (0.20-1.00); Monocytes % (A) 6.1 %; Neutrophils # (A) 4.13 X 10*3/uL (1.80-7.70); Neutrophils % (A) 66.8 %; Platelet Count 160 X 10*3/uL (140-440); RBC 4.26 X 10*6/uL (4.40-5.60); RDW 15.2 % (11.5-14.5); WBC 6.18 X 10*3/uL (4.50-10.00)
--- NOTE | 2021-01-10 09:43 | P.PN ---
Subjective Progress Note Date: 01/10/21 Principal diagnosis: Abdominal pain Patient doing well today. Denies pain at this time. Tolerating regular diet. White blood cell count is normal. He says he is back to his baseline. Objective - Vital Signs Vital signs: Vital Signs Temp 97.5 F L 01/10/21 07:25 Pulse 56 L 01/10/21 07:25 Resp 17 01/10/21 07:25 BP 141/73 01/10/21 07:25 Pulse Ox 98 01/10/21 07:25 Intake & Output 01/09/21 01/10/21 01/10/21 18:59 06:59 18:59 Intake Total 480 Output Total 600 Balance -120 Intake: Oral 480 Output: Urine 600 Other: Voiding Method Toilet Urinal # Voids 2 # Bowel Movements 1 - Exam Abdomen: Soft, nondistended, mild epigastric tenderness which she states is chronic - Labs CBC & Chem 7: 01/10/21 06:10 01/09/21 10:20 Labs: Abnormal Lab Results - Last 24 Hours (Table) 01/09/21 01/10/21 Range/Units 10:20 06:10 RBC 4.26 L (4.40-5.60) X 10*6/uL RDW 15.2 H (11.5-14.5) % Carbon Dioxide 31 H (22-30) mmol/L Calcium 8.3 L (8.4-10.2) mg/dL Assessment and Plan (1) Abdominal pain Narrative/Plan: Patient doing well at this time. Etiology for pain unclear but seems to be improving. Continue low fiber diet post discharge. Follow-up or return to hospital if symptoms recur. Stable for discharge. Current Visit: Yes Status: Acute Code(s): R10.9 - UNSPECIFIED ABDOMINAL PAIN SNOMED Code(s): 61266148
[2021-01-10 09:46] LABS: African American GFR (CKD) 98.5 (60.0-200.0); Anion Gap 4.6 mmol/L (4.00-12.00); BUN/Creat Ratio 16.25 Ratio (12.00-20.00); Calcium 8.9 mg/dL (8.7-10.3); Carbon Dioxide 32.4 mmol/L (21.6-31.8); Potassium 4.3 mmol/L (3.5-5.5)
--- NOTE | 2021-01-10 13:55 | P.PN ---
Subjective From Records: 80-year-old male presents with a three-day history of abdominal pain. Pain is mostly in the upper abdomen does radiate to the left upper quadrant. Had a previous left nephrectomy where he had multiple ribs removed at that time as we ll. Patient denies vomiting and JOSEPH he denied nausea however in the ER he was describing nausea. He has a diminished appetite. He does have a history of chronic constipation which is not changed. No fevers. Labs are normal. CAT scan was performed. The patient has a somewhat unusual appearance to his bowel in the left upper quadrant however looking back at the CAT scan from October of last year this is similar in appearance. At this time there is some edema present in the mesentery of the may be slightly more than last CAT scan. Workup in ED reveals slight elevation in BUN at 24, glucose 125; rest of blood work is unremarkable; Computed tomography scan abdomen and pelvis does show mild ascites; Gallbladder wall thickening Patient is admitted to the hospital for observation and further evaluation by surgical service 01/09/2021 Patient is seen and evaluated in follow-up and discussed with nursing staff; reports improvement in abdominal pain; complains of constipation Vital signs are reviewed with a temperature of 98.7, pulse 49, respirations 16 and blood pressure 123/64 with SpO2 of 95% on room air Surgery on board and patient has been started on a clear liquid diet which she is tolerating well; we plan to advance diet as tolerated; surgery recommending possible laparoscopic evaluation if patient continues to complain of abdominal pain Remains constipated; patient is given milk of magnesia 2400 mg 1 and we will start patient on Colace 100 mg daily Subjective: 01/10/2021 This is a pleasant 80 years old male with multiple problems admitted with abdominal pain: Mild gallbladder wall thickening, mild ectasia of the biliary tree. This may relate to chronic gallbladder dysfunction. Surgery team on the case. Vitals and labs are reviewed Continue with Percocet. Objective - Vital Signs Vital signs: Vital Signs Temp 97.5 F L 01/10/21 07:25 Pulse 56 L 01/10/21 07:25 Resp 17 01/10/21 07:25 BP 141/73 01/10/21 07:25 Pulse Ox 98 01/10/21 07:25 Intake & Output 01/09/21 01/10/21 01/10/21 18:59 06:59 18:59 Intake Total 480 Output Total 600 Balance -120 Intake: Oral 480 Output: Urine 600 Other: Voiding Method Toilet Urinal # Voids 2 # Bowel Movements 1 - Exam GENERAL: The patient is alert and oriented x3, not in any acute distress. Well developed, well nourished. HEENT: Pupils are round and equally reacting to light. EOMI. No scleral icterus. No conjunctival pallor. Normocephalic, atraumatic. No pharyngeal erythema. No thyromegaly. CARDIOVASCULAR: S1 and S2 present. No murmurs, rubs, or gallops. PULMONARY: Chest is clear to auscultation, no wheezing or crackles. ABDOMEN: Soft, nontender, nondistended, normoactive bowel sounds. No palpable organomegaly. MUSCULOSKELETAL: No joint swelling or deformity. EXTREMITIES: No cyanosis, clubbing, or pedal edema. NEUROLOGICAL: Gross neurological examination did not reveal any focal deficits. SKIN: No rashes. No petechiae - Labs CBC & Chem 7: 01/10/21 06:10 01/10/21 06:10 Labs: Abnormal Lab Results - Last 24 Hours (Table) 01/10/21 01/10/21 Range/Units 06:10 06:10 RBC 4.26 L (4.40-5.60) X 10*6/uL RDW 15.2 H (11.5-14.5) % Carbon Dioxide 32.4 H (21.6-31.8) mmol/L Assessment and Plan Assessment: 1. Intractable abdominal pain - CT of abdomen done in ED reveals mild ascites along with some gallbladder wall thickening - Patient is planned to be admitted to the hospital; keep patient nothing by mouth; IV fluid hydration; consult surgery for further recommendations - Start patient on Protonix 40 mg IV daily - Surgery on board under going to keep monitoring. Patient is currently stable. Advance diet 2. Mild renal injury; improved 3. Constipation; continue with home dose of Colace 100 mg at bedtime 4. History of Gastroesophageal reflux disease/gastritis; IV Protonix as ind icated above 5. COPD; not in exacerbation; patient currently not on any inhaler therapy; saturating above 95% on room air DVT prophylaxis; SCDs/early ambulation CODE STATUS; full code
[2021-01-11] MEDS: SODIUM CHLORIDE 0.9% 1,000 ML IV SCH (05:23)
[2021-01-11] MEDS: oxyCODONE-APAP 10-325MG 1 EACH TAB PO PRN ×2 (06:06→12:45)
[2021-01-11] MEDS: PANTOPRAZOLE 40 MG/10 ML VIAL IV SCH (06:59)
[2021-01-11] MEDS: DOCUSATE 100 MG CAP PO SCH (06:59)
[2021-01-11 08:31] VITALS: BP 118/64; PULSE 76; RESP 19; TEMP 98.6
--- NOTE | 2021-01-11 13:02 | P.CRDCN ---
History of Present Illness History of present illness: HISTORY OF PRESENTING ILLNESS This is a pleasant 80-year-old male past medical history significant for COPD, gastroesophageal reflux disease and chronic nicotine dependence. He denies prior history of coronary artery disease and does not follow in the office with a senior solutions engineer. We have been asked to see in consultation for bradycardia. He presented to the hospital January 07 with symptoms of abdominal pain. Diagnostic imaging has been unremarkable. He has been seen in evaluation by surgery and there is no plans for any surgical intervention at this point. He is seen and examined sitting up in the room in no acute distress. He has no symptoms of chest pain, shortness of breath, dizziness or palpitations. According to the patient always has a low heart rate. He has no history of syncope. DIAGNOSTICS EKG reveals sinus mechanism heart rate of 60. He has not been on telemetry since admission. Laboratory reviewed, WBC 6, hemoglobin 13, platelets 160, sodium 143, potassium 4.3, creatinine 0.8 and TSH 4.48. He takes no daily cardiac medications. REVIEW OF SYSTEMS At the time of my exam: CONSTITUTIONAL: Denies fever or chills. CARDIOVASCULAR: Denies chest pain, shortness of breath, orthopnea, PND or palpitations. RESPIRATORY: Denies cough. GASTROINTESTINAL: Denies abdominal pain, diarrhea, constipation, nausea or vomiting. MUSCULOSKELETAL: Denies myalgias. NEUROLOGIC: Denies numbness, tingling, headacbe or weakness. ENDOCRINE: Denies fatigue, weight change, polydipsia or polyurina. GENITOURINARY: Denies burning, hematuria or urgency with micturation. HEMATOLOGIC: Denies history of anemia or bleeding. PHYSICAL EXAMINATION Blood pressure 118/64 heart rate 76 afebrile and maintaining oxygen saturation on room air. CONSTITUTIONAL: No apparent distress. HEENT: Head is normocephalic. Pupils are equal, round. Sclerae anicteric. Mucous membranes of the mouth are moist. No JVD. No carotid bruit. CHEST EXAMINATION: Lungs are clear to auscultation. No chest wall tenderness is noted on palpation or with deep breathing. HEART EXAMINATION: Regular rate and rhythm. S1, S2 heard. No murmurs, gallops or rub. ABDOMEN: Soft, nontender. Positive bowel sounds. EXTREMITIES: 2+ peripheral pulses, no lower extremity edema and no calf tenderness. NEUROLOGIC EXAMINATION: Patient is awake, alert and oriented x3. ASSESSMENT Bradycardia Abdominal pain Chronic nicotine dependence PLAN Vital signs documentation indicates at times his heart rate is in the 40s, this looks to be mostly in the middle of the night. The patient has not been on telemetry so it is difficult to determine if in fact he is bradycardic and what his rhythm is at that time. He can be discharged from a cardiac perspective follow-up with Dr. Gauthier in the office for further outpatient heart rate monitoring. Thank you kindly for this consultation. Nurse Practitioner note has been reviewed, I agree with a documented findings and plan of care. Patient was seen and examined. 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 Pt has fragile skin-all tape causes skin tears. History of Any Multi-Drug Resistant Organisms: None Reported Past Surgical History: Bladder Surgery, Hernia Repair Additional Past Surgical History / Comment(s): 1989 L nephroureterectomy for cancer/couple ribs removed, 2006 TURP/resection bladder tumors, ventral hernia repair, bilateral inguinal hernia repairs, EGDs, colonoscopies, michael rectal abscesses with I&Ds, ERCP 10/07/19 at [facility] with CBD stent placed-awaiting path re port. Past Anesthesia/Blood Transfusion Reactions: No Reported Reaction Past Psychological History: No Psychological Hx Reported Additional Psychological History / Comment(s): Pt resides with his spouse and son. He has a nebulizer. He drives. Smoking Status: Current every day smoker Past Alcohol Use History: None Reported Additional Past Alcohol Use History / Comment(s): SMOKES 1/2 PPD , HX OF 1PPD, STARTED SMOKING AGE 15. Past Drug Use History: None Reported - Past Family History Mother Family Medical History: No Reported History Additional Family Medical History / Comment(s): at age 93 Father Family Medical History: Vascular Disorder Additional Family Medical History / Comment(s): Father in his 60s from a ruptured abdominal aneurysm Medications and Allergies Home Medications Medication Instructions Recorded Confirmed Type oxyCODONE-APAP 10-325MG [Percocet 1 tab PO QID PRN 08/01/14 01/07/21 History 10-325 mg] Docusate [Colace] 100 mg PO DAILY 01/07/21 01/07/21 History Multivitamins, Thera [Multivitamin 1 tab PO DAILY 01/07/21 01/07/21 History (formulary)] Allergies Allergy/AdvReac Type Severity Reaction Status Date / Time Latex, Natural Rubber Allergy Unknown Red skin Verified 01/07/21 18:14 Penicillins Allergy Unknown Rash/Hives Verified 01/07/21 18:14 adhesive Allergy blisters,tears Verified 01/07/21 18:14 skin Cephalosporins Allergy Rash/Hives Verified 01/07/21 18:14 erythromycin base Allergy Rash/Hives Verified 01/07/21 18:14 Sulfa (Sulfonamide Allergy Unknown Verified 01/07/21 18:14 Antibiotics) Iodinated Contrast Media AdvReac Anaphylaxis Verified 01/07/21 18:14 [Iodinated Contrast Media - IV Dye] tape Allergy Mild blisters Uncoded 01/07/21 17:08 skin,peels skin,states "paper tape ok" Physical Exam Vitals: Vital Signs Temp Pulse Resp BP Pulse Ox 01/11/21 08:00 98.6 F 76 19 118/64 92 L 01/11/21 07:00 19 01/11/21 01:12 98.0 F 44 L 14 102/62 96 01/10/21 20:29 98.6 F 53 L 16 115/61 96 01/10/21 13:34 98.4 F 59 L 17 122/65 94 L Intake and Output 01/10/21 01/11/21 01/11/21 22:59 06:59 14:59 Intake Total 480 Balance 480 Intake: Oral 480 Other: Voiding Method Toilet Toilet Urinal Urinal # Voids 1 Results 01/10/21 06:10 01/10/21 06:10 Current Medications Generic Name Dose Route Start Last Admin Trade Name Freq PRN Reason Stop Dose Admin Acetaminophen 650 mg 01/07/21 20:15 Acetaminophen Tab 325 Mg Tab PO Q6HR PRN Mild Pain or Fever > 100.5 Docusate Sodium 100 mg 01/10/21 09:00 01/11/21 06:59 Docusate 100 Mg Cap PO 100 mg DAILY BAHMAN Administration Hydromorphone HCl 1 mg 01/07/21 20:15 01/09/21 17:46 Hydromorphone 1 Mg/Ml 1 Ml Syringe IVP 1 mg Q3HR PRN Administration Severe Pain Magnesium Hydroxide 2,400 mg 01/09/21 13:25 01/09/21 13:30 Magnesium Hydroxide 2,400 Mg/10 Ml Cup PO 2,400 mg ONCE PRN Administration Constipation Naloxone HCl 0.2 mg 01/07/21 20:15 Naloxone 0.4 Mg/Ml 1 Ml Vial IV Q2M PRN Opioid Reversal Ondansetron HCl 4 mg 01/07/21 20:15 Ondansetron 4 Mg/2 Ml Vial IVP Q8HR PRN Nausea And Vomiting Oxycodone/Acetaminophen 1 each 01/09/21 10:01 01/11/21 12:45 Oxycodone-Apap 10-325mg 1 Each Tab PO 1 each QID PRN Administration Pain Pantoprazole Sodium 40 mg 01/12/21 09:00 Pantoprazole 40 Mg Tablet PO DAILY BAHMAN Intake and Output 01/10/21 01/11/21 01/11/21 22:59 06:59 14:59 Intake Total 480 Balance 480 Intake: Oral 480 Other: Voiding Method Toilet Toilet Urinal Urinal # Voids 1 01/10/21 06:10 01/10/21 06:10
--- NOTE | 2021-01-11 13:32 | P.PN ---
Subjective Progress Note Date: 01/11/21 CHIEF COMPLAINT: Abdominal pain HISTORY OF PRESENT ILLNESS: Surgical service is following regards to patient's abdominal pain. He denies any pain at this time. He is tolerating diet. Reports having bowel movements. Denies any nausea or vomiting. His white count is normal. PHYSICAL EXAM: VITAL SIGNS: Reviewed. GENERAL: Well-developed in no acute distress. HEENT: No sclera icterus. Extraocular movements grossly intact. Moist buccal mucosa. Head is atraumatic, normocephalic. ABDOMEN: Soft. Nondistended. Nontender. NEUROLOGIC: Alert and oriented. Cranial nerves II through XII grossly intact. ASSESSMENT: 1. Left upper quadrant Abdominal pain. Now resolved. Exact etiology unclear. 2. Possible chronic cholecystitis with gallbladder wall thickening noted on CAT scan PLAN: -Patient can be discharge from surgical standpoint Physician Passenger Car Conductor note has been reviewed by physician. Signing provider agrees with the documented findings, assessment, and plan of care. Objective - Vital Signs Vital signs: Vital Signs Temp 98.6 F 01/11/21 08:00 Pulse 76 01/11/21 08:00 Resp 19 01/11/21 08:00 BP 118/64 01/11/21 08:00 Pulse Ox 92 L 01/11/21 08:00 Intake & Output 01/10/21 01/11/21 01/11/21 18:59 06:59 18:59 Intake Total 480 Balance 480 Intake: Oral 480 Other: Voiding Method Toilet Toilet Urinal Urinal # Voids 1 - Labs CBC & Chem 7: 01/10/21 06:10 01/10/21 06:10
--- NOTE | 2021-01-11 17:24 | ECHOF ---
Referral Reason:Rule out heart disease MEASUREMENTS -------- HEIGHT: 172.7 cm WEIGHT: 59.0 kg BP: 118/64 IVSd: 1.1 cm (0.6 - 1.1) LVIDd: 3.4 cm (3.9 - 5.3) LVPWd: 1.4 cm (0.6 - 1.1) IVSs: 1.7 cm LVIDs: 1.7 cm LVPWs: 1.6 cm LAESV Index (A-L): 27.69 ml/m Ao Diam: 3.4 cm (2.0 - 3.7) AV Cusp: 2.0 cm (1.5 - 2.6) MV EXCURSION: 14.757 mm (> 18.000) MV EF SLOPE: 76 mm/s (70 - 150) EPSS: 0.1 cm MV E Rubio: 0.95 m/s MV DecT: 270 ms MV A Rubio: 0.94 m/s MV E/A Ratio: 1.01 RAP: 5.00 mmHg RVSP: 35.88 mmHg FINDINGS -------- This was a technically adequate study. The left ventricular size is normal. There is mild concentric left ventricular hypertrophy. Overa ll left ventricular systolic function is normal with, an EF between 55 - 60 %. The right ventricle is normal in size. Normal LA size by volume 22+/-6 ml/m2. The right atrium is mildly enlarged. Interatrial and interventricular septum intact. The aortic valve is trileaflet and appears structurally normal. There is mild aortic valve sclerosi s. There is no evidence of aortic regurgitation. There is no evidence of aortic stenosis. Mild mitral annular calcification present. No mitral regurgitation. Mild tricuspid regurgitation present. There is mild pulmonary hypertension. The right ventricular systolic pressure, as measured by Doppler, is 35.88mmHg. There is no pulmonic regurgitation present. The aortic root size is normal. Normal inferior vena cava with normal inspiratory collapse consistent with estimated right atrial pre ssure of 5 mmHg. There is no pericardial effusion. CONCLUSIONS -------- 1. The left ventricular size is normal. 2. There is mild concentric left ventricular hypertrophy. 3. Overall left ventricular systolic function is normal with, an EF between 55 - 60 %. 4. The right atrium is mildly enlarged. 5. There is mild aortic valve sclerosis. 6. Mild mitral annular calcification present. 7. Mild tricuspid regurgitation present. 8. There is mild pulmonary hypertension. 9. The right ventricular systolic pressure, as measured by Doppler, is 35.88mmHg. [employer]: Irene Ott RDCS
--- NOTE | 2021-01-11 21:28 | P.DS ---
Providers Date of admission: 01/07/21 20:15 Attending physician: Prachi Yeboah MD Consults: 01/07/21 20:15 Consult Physician Urgent Consulting Provider: Afshin Nam Consult Reason/Comments: ab pain Do you want consulting provider notified?: Yes 01/11/21 07:20 Consult Physician Urgent Consulting Provider: Jose Gauthier Consult Reason/Comments: bradycardia Do you want consulting provider notified?: Yes [facility] Course: Diagnoses: 1. Intractable left upper abdominal pain, of unclear etiology. Completely resolved and cleared by surgery team for discharge 2. Asymptomatic bradycardia, echocardiogram ejection fraction 55-60%, patient to follow-up as an outpatient 3. Constipation 4. History of Gastroesophageal reflux disease/gastritis 5. COPD 6. Mild renal injury Hospital course: 80-year-old male presents with a three-day history of abdominal pain. Pain is mostly in the upper abdomen does radiate to the left upper quadrant. Associated with nausea. He does have a history of chronic constipation which is not changed. he patient has a somewhat unusual appearance to his bowel in the left upper quadrant however looking back at the CAT scan from October of last year this is similar in appearance. Patient has been evaluated by surgery team, he started on liquid diet and then regular diet and tolerated that well. Abdominal pain completely resolved, and patient was cleared for discharge Supervisor Filling And Packing also evaluated the patient for asymptomatic bradycardia, echocardiogram showing normal ejection fraction. And the recommend for outpatient follow-up patient was cleared by surgery team for discharge Problems and management plan were discussed with the patient and he verbalized understanding and acceptance Patient was found stable and can be discharged home however he needs follow-up as an outpatient. Patient was instructed to follow up with PCP within one week and patient agrees Patient was instructed to follow up with tester electronic scale Dr. Perea and Dr. Parsons other surgeon in 1 week and he agrees to call and make appointment Physical exam Gen: patient is a AAOx3, no distress CVS: S1-S2, RRR, no murmur Lungs: B/L CTA, no wheezing Abdomen: soft, no distention, no tenderness, positive bowel sounds Extremity: no leg edema or induration Time spent more than 35 minutes Plan - Discharge Summary New Discharge Prescriptions: Continue oxyCODONE-APAP 10-325MG [Percocet 10-325 mg] 1 tab PO QID PRN PRN Reason: Pain Docusate [Colace] 100 mg PO DAILY Multivitamins, Thera [Multivitamin (formulary)] 1 tab PO DAILY Discharge Medication List oxyCODONE-APAP 10-325MG [Percocet 10-325 mg] 1 tab PO QID PRN 08/01/14 [History] Docusate [Colace] 100 mg PO DAILY 01/07/21 [History] Multivitamins, Thera [Multivitamin (formulary)] 1 tab PO DAILY 01/07/21 [History] Follow up Appointment(s)/Referral(s): Dayday Vieyra DO [Primary Care Provider] - 01/19/21 10:00 am Jose Gauthier MD [STAFF PHYSICIAN] - 1 Week (Office will call you with your appointment date and time.) Afshin Nam MD [STAFF PHYSICIAN] - 1 Week Patient Instructions/Handouts: Acute Abdominal Pain (DC) Activity/Diet/Wound Care/Special Instructions: Heart healthy diet Activity is restricted until you see your doctor Discharge Disposition: HOME SELF-CARE
[2021-01-12] MEDS ORDERED: PANTOPRAZOLE 40 MG TABLET PO SCH (09:00)
== END 2021-01-11 14:30 | disposition home or self-care (01) ==
LOC: EC 17:04 → 6NMEDSUR 20:15 → 4SSUR 21:59
PROVIDERS: ADMIT Internal Medicine; ATTEND Internal Medicine
DX: R10.12 Left upper quadrant pain (principal); R00.1 Bradycardia, unspecified; K59.09 Other constipation; K21.9 Gastro-esophageal reflux disease without esophagitis; J44.9 Chronic obstructive pulmonary disease, unspecified; Z20.822 Contact with and (suspected) exposure to COVID-19; F17.200 Nicotine dependence, unspecified, uncomplicated; K82.8 Other specified diseases of gallbladder; R18.8 Other ascites; M19.90 Unspecified osteoarthritis, unspecified site; I72.3 Aneurysm of iliac artery; G89.29 Other chronic pain; M54.9 Dorsalgia, unspecified; M79.605 Pain in left leg; M79.604 Pain in right leg; H54.7 Unspecified visual loss; I83.90 Asymptomatic varicose veins of unspecified lower extremity; D30.3 Benign neoplasm of bladder; Z88.0 Allergy status to penicillin; Z88.1 Allergy status to other antibiotic agents; Z88.8 Allergy status to other drugs, medicaments and biological substances; Z88.2 Allergy status to sulfonamides; Z91.040 Latex allergy status; Z90.5 Acquired absence of kidney; Z98.890 Other specified postprocedural states; Z85.528 Personal history of other malignant neoplasm of kidney; Z87.01 Personal history of pneumonia (recurrent); Z82.49 Family history of ischemic heart disease and other diseases of the circulatory system
CPT/HCPCS: 96376 ×4; 96361 ×2; 96375 ×2; 96374; 99285; 36415; 93005; 93306; 97161; 97165; 80053 ×2; 80048 ×2; 84443; 82150; 83690 ×2; 84484; 85025 ×3; 85610; 85730; 81003; 87635; 74177; G0378 ×5; J2270; J1200; J2930; J2405; J1170 ×3; C9113 ×4; Q9967